=== PATIENT | female | born 1980 | race Caucasian/White ===

== ENCOUNTER 2017-08-09 00:50 | Emergency (ER) | payer OTHER ==
[~2017-08-09] VITALS: Ht 175.3 cm; Wt 64.9 kg
[~2017-08-09 00:50] MED LIST: ATENOLOL25 MG PO; CALCIUM500 M1 PO; CEPHALEXIN500 MG PO; CLONAZEPAM1 MG PO; CYCLOBENZAPRINE10 MG PO; CYMBALTA60 MG PO; FIORICET 50-301 EACH PO; HYDROCHLOROTHIA25 MG PO; HYDROCODON-ACE1 EAC8 PO; LIDOCAINE30 G TOP; MACROBID 100 M100 MG PO; METHOCARBAMOL750 MG PO; PERCOCET 5-3251 EACH PO; POTASSIUM 25 M25 MEQ PO; PROBIOTIC1 EAC1 PO; TRUVADA 200 MG1 EACH PO; TYLENOL325 MG PO; VITAMIN D5000 UNIT PO; ZOFRAN ODT4 MG PO
[2017-08-09] MEDS ORDERED: RISPERDAL0.25 MG PO (01:06)
[2017-08-09] MEDS ORDERED: TESSALON PERLE100 MG PO (01:29)
== END 2017-08-09 01:38 | disposition home or self-care (01) ==
LOC: ED 00:50
DX: J20.9 Acute bronchitis, unspecified (principal); F32.9 Major depressive disorder, single episode, unspecified; F17.200 Nicotine dependence, unspecified, uncomplicated; Z98.84 Bariatric surgery status; Z90.89 Acquired absence of other organs; Z90.49 Acquired absence of other specified parts of digestive tract; Z90.710 Acquired absence of both cervix and uterus; Z98.51 Tubal ligation status; Z88.8 Allergy status to other drugs, medicaments and biological substances; Z79.899 Other long term (current) drug therapy
CPT/HCPCS: 99283

== ENCOUNTER 2018-12-17 15:31 | Emergency (ER) | payer OTHER ==
[~2018-12-17] VITALS: Ht 175.3 cm; Wt 64.9 kg
[~2018-12-17 15:31] MED LIST changes: +RISPERDAL0.25 MG PO; +TESSALON PERLE100 MG PO
[2018-12-17] MEDS ORDERED: LOSARTAN POTASS50 MG PO (15:42)
== END 2018-12-17 15:45 | disposition home or self-care (01) ==
LOC: ED 15:31
DX: R10.2 Pelvic and perineal pain (principal)

== ENCOUNTER 2020-05-08 21:13 | Emergency (ER) | payer OTHER ==
[~2020-05-08] VITALS: Ht 180.3 cm; Wt 64.4 kg
--- OUTSIDE RECORDS SUMMARY | ~2020-05-08 | XMS | Encounter Summary ---
Demographics + + + | Address | [address] | | | [place] [address] | + + + | Home Phone | | + + + | Preferred Language | Unknown | + + + | Marital Status | | + + + | Uatsdin Affiliation | 1013 | + + + | Race | Unknown | + + + | Ethnic Group | Unknown | + + + Author + + + | Author | [facility] | | | and Luis Enriqueana | + + + | Organization | [facility] | | | and Luis Enriqueana | + + + | Address | Unknown | + + + | Phone | Unavailable | + + + Support + + +---------+ + | Name | Relationship | Address | Phone | + + +---------+ + | Tammy Weaver | ECON | Unknown | | + + +---------+ + Care Team Providers + +------+ + | Care Car Packer Name | Role | Phone | + +------+ + PCP | Unavailable | + +------+ + Encounter Details +--------+ + + + + | Date | Type | Department | Care Team | Description | +--------+ + + + + | 02/01/ | Emergency | [facility] | Win Leo MD | Cervical stenosis of | | 2011 - | | MEDICAL CENTER | [address] | spine; Neck pain | | | | EMERGENCY CENTER | [place] [address] | | | 02/02/ | | [address] | [phone] | | | 2011 | | [place], [place] | | | | | | [address] | | | | | | [phone] | | | +--------+ + + + + Social History + +-------+ +--------+------+ | Tobacco Use | Types | Packs/Day | Years | Date | | | | | Used | | + +-------+ +--------+------+ | Never Assessed | | | | | + +-------+ +--------+------+ + + + | Sex Assigned at | Date Recorded | | | | + + + | Not on file | | + + + documented as of this encounter ED Notes Conversion Transaction, Provider Unknown - 02/03/2012 1:57 AM PDTFormatting of this note m ight be different from the original. ED Notes by Emre Hooper RN at 02/03/12 0157 Author: Emre Hooper RN Service: (none) Author Type: Registered Nurse Filed: 02/03/12156 Date of Service: 02/03/12156 Status: Signed Caregivers Non Medical: Emre Hooper RN (Registered Nurse) All patient belongings collected by patient prior to discharge, pt has verified all belongi ngs in their custody at time of discharge. Patient has received and stated understanding of discharge instructions. Emre Hooper RN 02/03/12156 onver shivam Transaction, Provider Unknown - 02/03/2012 1:49 AM PDT ED Notes by Emre Hooper RN at 02/03/12148 Author: Emre Hooper RN Service: (none) Author Type: Registered Nurse Filed: 02/03/12149 Date of Service: 02/03/12148 Status: Signed Caregivers Non Medical: Emre Hooper RN (Registered Nurse) Pt sent home with Disc copy of MRI scan, ok per Dr Leo. Emre Hooper RN 02/03/12149 onver shivam Transaction, Provider Unknown - 02/03/2012 12:26 AM PDT ED Notes by Harry Jo RN at 02/03/1225 Author: Harry Jo RN Service: (none) Author Type: Registered Nurse Filed: 02/03/1225 Date of Service: 02/03/1225 Status: Signed Caregivers Non Medical: Harry Jo RN (Registered Nurse) Pt returned to room from MRI. Bed rails up x 2, bed in low position with brakes on, call l ight in reach. Harry Jo RN 02/03/1225 onver shivam Transaction, Provider Unknown - 02/03/2012 12:19 AM PDT ED Notes by Luis A Ellison RN at 02/03/12 0019 Author: Luis A Ellison RN Service: (none) Author Type: Registered Nurse Filed: 02/03/12 0019 Date of Service: 02/03/1218 Status: Signed Caregivers Non Medical: Luis A Ellison RN (Registered Nurse) Pt remains in MRI Luis A Ellison RN 02/03/1218 hWin mchugh MD - 02/02/2012 11:18 PM PDTFormatting of this note might be different from the or iginal. ED Provider Notes by Win Leo MD at 02/02/122317 Author: Win Leo MD Service: (none) Author Type: Physician Filed: 02/03/12 0150 Date of Service: 02/02/122317 Status: Signed Caregivers Non Medical: Win Leo MD (Physician) [facility] Department of Emergency Medicine History of Present Illness 11:18 PM Patient Identification Tina Ho is a 31 y.o. female. Patient information was obtained from patient. History/Exam limitations: none. Patient presented to the Emergency Department by: Ambulance Chief Complaint Chief Complaint Patient presents with Neck Injury transfer [facility], The patient complains of a neck injury. She was transferred here from [facility]. Pt sta yazmin she was at this movie theaters, turned her head and heard a "crack." She developed an in stnat headache and neck pain, and decreased movement with her right arm. She states she has chronic weakness in her UE, but reports worsening symptoms in her RUE. Weakness was caused f rom a fall in Dec 2011. At that time, she sustained a disk injury in her c-spine and is sche duled for surgery at [facility]. She denies any pain in her UEs. Onset of symptoms was tod ay, with a constant course since that time. The symptoms are described to be of moderate to severe severity. The patient also complains of headache that has been constant since injury occured. Care prior to arrival consisted of Dilaudid and Zofran at transferring hospital, with some relief. However, she is c/o returning pain. Past Medical History Diagnosis Date Hypertension Marfan syndrome Migraine Past Surgical History Procedure Date Hysterectomy Cholecystectomy Gastric bypass Prior to Admission medications Medication Sig Start Date End Date Taking? Authorizing Provider ascorbic acid (VITAMIN C) 250 MG tablet Take 250 mg by mouth daily. Yes Historical Prov iderMD atenolol (TENORMIN) 50 MG tablet Take 50 mg by mouth daily. Yes Historical Provider, wajeondusm-pedzutlmbwfgc-kjlyljdt (FIORICET WITH CODEINE) [id number] MG per capsule Take 1 capsule by mouth every 4 (four) hours as needed. Yes Historical Provider, diazepam (VALIUM) 5 MG tablet Take 5 mg by mouth every 6 (six) hours as needed. Yes His torical Provider, duloxetine (CYMBALTA) 60 MG capsule Take 60 mg by mouth daily. Yes Historical Provider, losartan (COZAAR) 50 MG tablet Take 50 mg by mouth daily. Yes Historical Provider, oxycodone-acetaminophen (LYNOX) 5-300 MG per tablet Take 1 tablet by mouth every 4 (four) h ours as needed. Yes Historical Provider, pregabalin (LYRICA) 150 MG capsule Take 150 mg by mouth 2 (two) times daily. Yes Histor ical Provider, Allergies Allergen Reactions Methergine Other (See Comments) Mobic Other (See Comments) History Social History Marital Status: Spouse Name: N/A Number of Children: N/A Years of Education: N/A Occupational History Not on file. Social History Main Topics Smoking status: Never Smoker Smokeless tobacco: Not on file Alcohol Use: No Drug Use: No Sexually Active: Other Topics Concern Not on file Social History Narrative No narrative on file History reviewed. No pertinent family history. Review of Systems Constitutional: Negative for: fever, chills, fatigue, sweats or weight loss Eyes: Negative for: decreased vision or irritated eyes Nose: Negative for: nosebleed Throat: Negative for: mouth sores Cardiovascular/Respiratory: Negative for: chest pain, shortness of breath, cough Gastrointestinal: Negative for: abdominal pain, vomiting, diarrhea, black or bloody stools Genitourinary: Negative for: dysuria, hematuria, urinary problems Musculoskeletal: Negative for: myalgias and arthralgias Skin: Negative for: laceration or lesion Neuro and psych: Negative for: fainting, head injury, seizure, trouble walking POSITIVE: headache, increased weakness in right>left arm Endocrine/Heme/Lymph: Negative for: swollen lymph nodes, easy bruising Physical Exam BP 161/94 | Pulse 78 | Temp(Src) 97.3 F (36.3 C) (Oral) | Resp 18 | Ht 1.753 m (5' 9") | Wt 72.576 kg (160 lb) | BMI 23.63 kg/m2 | SpO2 97% VS interpretation: hypertensive, otherwise normal Pulse Oximetry interpretation: Normal General: Alert, in no apparent distress Eyes: Normal inspection, pupils equal and round, non-icteric ENT: Ears normal Nose normal Pharynx normal Neck: Maintained in C-collar Cardiovascular: Rate and rhythm normal No murmurs Respiratory: Breath sounds normal bilaterally Abdomen: Soft, non-tender, non-distended No guarding or rebound Genitourinary: Deferred Rectal exam: Deferred Back: Normal inspection Skin: Color normal Warm and dry No rash Neuro: No motor deficit No sensory deficit Normal gait Extremitis: Left arm raised to level of shoulder, right arm raised 45 degress, otherwise st rength and sensation are normal Medical Decision Making and Emergency Department Course ED Department Course 11:18 PM Pt was transferred to [facility] ED from [facility] for concern for C-spine injury. P t states she turned her neck today and felt a "crack." She developed a headache instantly an d reports increased weakness in her RUE. She states she has chronic weakness in her UR bilat , but states a change in her weakness since incident occurred today. I have ordered an MRI a nd c-spine has been kept in a collar. Will give additional medication then reassess. Reviewed prior records. 12:49 AM MRI reviewed. Awaiting official read. 1:19 AM Case d/w Dr. Perez, neurosurgeon. Explained MRI results. States she will review images. 1:[address] Perez called back and has reviewed MRI. States there are no emergent findings and pt i s stable to be d/c. Discussion with Dr. Perez explained to pt and plan for d/c. C-spine cleared at this time. Pt states she was on steroid medication 1 month ago. Plan for d/c and f/u explained. Pt unde rstands and agrees with plan. All questions have been addressed. She is still c/o pain, ther efore will give medication prior to d/c. She states she normally takes Percocet q8h, and sta yazmin she still has trouble with maintaining her pain. I explained that she can increase her d ose to q6h. Records Reviewed Old medical records. Nursing notes. Previous radiology studies. Laboratory Evaluation Results None Radiology and EKG Evaluation Imaging Results MRI C-Spine without contrast (Preliminary result) Result time:02/03/12 005 Preliminary result by Rad Results In Frank[place] (02/03/12 ) Narrative: Cervical spine MR preliminary impression: There is a focus of increased cord signal at the C4 level. This is nonspecific. Primary differential considerations include sequela from eliseo or cord contusion (given history of remote trauma) or transverse myelitis. No clear evidence of discrete spinal cord mass. There is moderate multilevel spinal stenosis, most pronounced at the C3-C4 level, where there is likely mild impingement on the spinal cord. No abnormal STIR signal to indicate presence of acute bony or paraspinous injury. Read by Edison Garrett MD on Feb 03 2012 12:51AM ED Diagnoses Final diagnoses Cervical stenosis of spine Neck pain Disposition: ED Disposition Discharge Condition at discharge: Stable Follow-up Information Follow up With Details Comments Contact Info DREW Eastman Make an appointment [address] [place] [phone] [facility] EMERGENCY DEPARTMENT If symptoms worsen [address] [place] [id number] Discharge Medications: New Prescriptions OXYCODONE-ACETAMINOPHEN ([facility] DISPENSED MEDICATION ONLY) 5-325 MG PRE-CARRIE Take 1-2 ta blets by mouth every 4 (four) hours as needed for Pain. Send prescription to [facility] --DO NOT SEND WITH PATIENT Additional Documentation Procedures Attending Note: Documentation assistance provided by Francine Delcid (Scribe). Information recorded by the scribe has been reviewed and validated by me. I oneida hastings with its contents. MD Win Padron MD 02/03/12 0150 onversion Transactio n, Provider Unknown - 02/02/2012 11:11 PM PDT ED Notes by Luis A Ellison RN at 02/02/12 0778 Author: Luis A Ellison RN Service: (none) Author Type: Registered Nurse Filed: 02/02/122312 Date of Service: 02/02/122310 Status: Signed Caregivers Non Medical: Luis A Ellison RN (Registered Nurse) Pt states she fell about a month ago injuring her neck, pt states she turned her neck earli er today and felt a pop, after that she had increasing limited ROM in her arms. Luis A Ellison RN 02/02/122312 onver shivam Transaction, Provider Unknown - 02/02/2012 11:10 PM PDT ED Notes by Luis A Ellison RN at 02/02/122309 Author: Luis A Ellison RN Service: (none) Author Type: Registered Nurse Filed: 02/02/122309 Date of Service: 02/02/122309 Status: Signed Caregivers Non Medical: Luis A Ellison RN (Registered Nurse) Bed:07
Expected date:
Expected time:
Means of arrival:
Comments:
[facility] Transfer. onver shivam Transaction, Provider Unknown - 02/02/2012 9:59 PM PDT ED Notes by Emre Hooper RN at 02/02/122158 Author: Emre Hooper RN Service: (none) Author Type: Registered Nurse Filed: 02/03/12 0036 Date of Service: 02/02/122158 Status: Addendum Caregivers Non Medical: Emre Hooper RN (Registered Nurse) Related Notes: Original Note by Emre Hooper RN (Registered Nurse) filed at 02/02/122306 Report received from FILI Dickerson. Pt transferred from [facility] ED in [place]. Pt is in C-Collar for C2-C5 compression. Pt reports she sustained in fall on 01/05/12. Pt was seen and treated at [facility] ED for that ini tial injury. Today pt reports she was sitting on couch and "felt a pop" when she turned her head since then pt has had "burning pain" in lower extremities and has experienced numbness, tingling, and decreased range of motion in upper extremities bilaterally. CT scan reveals c ord comression, narrowed canal, disc bulging in disc c2-c3. Pt is followed by the NH and is scheduled for neck surgery. Emre Hooper RN 02/03/12 0036 docume nted in this encounter Plan of Treatment Not on filedocumented as of this encounter Procedures + +--------+ + + + | Procedure Name | Priori | Date/Time | Associated Diagnosis | Comments | | | ty | | | | + +--------+ + + + | MRI CERVICAL SPINE | Routin | 02/03/2012 | | Results for this | | WO CONTRAST | e | 12:16 AM | | procedure are in the | | | | PDT | | results section. | + +--------+ + + + documented in this encounter Results MRI Cervical Spine wo Contrast (02/03/2012 12:16 AM PDT) + + | Specimen | + + | | + + + + + | Narrative | Performed At | + + + | MRI CERVICAL SPINE WITHOUT CONTRAST HISTORY: 31-year-old woman | | | with arm pain and weakness. COMPARISON: None available. | | | TECHNIQUE: Sagittal and axial T1 and T2-weighted sequences were | | | obtained through the cervical spine without the administration of | | | intravenous contrast. Coverage from clivus to T6. FINDINGS: | | | Alignment of the cervical spine is normal. Vertebral body heights are | | | maintained. There is disk height loss and disk desiccation throughout | | | nearly all the cervical spine disk levels from C2 through T1. At | | | C2-C3, mild facet arthropathy without significant canal or foraminal | | | narrowing. At C3-C4, posterior disk osteophyte complex protrusion | | | causing compression of the cord and effacement of the CSF space. AP | | | canal diameter measures 6.9 mm. There is flattening of the cord. Below | | | this level, there is focal T2 hyperintensity cord signal | | | abnormality in the right lateral aspect of the cord measuring 3 mm x 3 | | | mm x 3 mm. There is mild to moderate impingement of the cord at this | | | level. At C4-C5, there is central focal disk protrusion with | | | ventral indentation of the cord. AP canal diameter measures 7.1 mm | | | with near effacement of the CSF space around the cord. There is mild | | | impingement of the cord at this level. No cord signal abnormality | | | demonstrated at this level. At C5-C6, posterior disk osteophyte | | | complex with ventral indentation of the left lateral cord. AP canal | | | diameter measures 7. 9 mm with mild bilateral foraminal narrowing. No | | | cord signal abnormality. At C6-C7, posterior disk osteophyte | | | complex. AP canal diameter measures 8.6 mm. There is minimal bilateral | | | foraminal narrowing. At C7-T1, mild posterior bulge with a left | | | paracentral annular fissure. AP canal diameter measures 8.9 mm without | | | significant foraminal narrowing. IMPRESSION: 1. Moderate to | | | severe canal narrowing at C3-C4 and C4-C5 secondary to posterior disk | | | osteophyte complex at C3-C4 and focal central disk osteophyte complex | | | protrusion at C4-C5. There is apparent mild to moderate cord | | | impingement at C3-C4 and mild cord impingement at C4-C5. 2. T2 | | | hyperintense cord signal abnormality in the right lateral cord | | | posterior to C4, between above mentioned areas of high degree stenosis | | | most likely represents compression myelopathy or cord contusion from | | | prior trauma with tiny focal local syrinx. There is no evidence for | | | expansion of the cord to suggest intrinsic neoplasm. There is no | | | evidence for elongated syringohydromyelia. Sequela of demyelinating | | | process is thought to be less likely. Eccentric location of | | | abnormality makes cord infarct also less likely although cannot be | | | completely excluded. Electronically signed by Dean Wheeler MD | | | on Feb 06 2012 11:35PM | | + + + + + | Procedure Note | + + | Franko, Rad Conversion - 07/04/2019 2:38 AM PDT MRI CERVICAL SPINE WITHOUT CONTRAST | | HISTORY: 31-year-old woman with arm pain and weakness. COMPARISON: None available. | | TECHNIQUE: Sagittal and axial T1 and T2-weighted sequences were obtained through the | | cervical spine without the administration of intravenous contrast. Coverage from clivus | | to T6. FINDINGS: Alignment of the cervical spine is normal. Vertebral body heights are | | maintained. There is disk height loss and disk desiccation throughout nearly all the | | cervical spine disk levels from C2 through T1. At C2-C3, mild facet arthropathy without | | significant canal or foraminal narrowing. At C3-C4, posterior disk osteophyte complex | | protrusion causing compression of the cord and effacement of the CSF space. AP canal | | diameter measures 6.9 mm. There is flattening of the cord. Below this level, there is | | focal T2 hyperintensity cord signal abnormality in the right lateral aspect of the cord | | measuring 3 mm x 3 mm x 3 mm. There is mild to moderate impingement of the cord at this | | level. At C4-C5, there is central focal disk protrusion with ventral indentation of the | | cord. AP canal diameter measures 7.1 mm with near effacement of the CSF space around the | | cord. There is mild impingement of the cord at this level. No cord signal abnormality | | demonstrated at this level. At C5-C6, posterior disk osteophyte complex with ventral | | indentation of the left lateral cord. AP canal diameter measures 7. 9 mm with mild | | bilateral foraminal narrowing. No cord signal abnormality. At C6-C7, posterior disk | | osteophyte complex. AP canal diameter measures 8.6 mm. There is minimal bilateral | | foraminal narrowing. At C7-T1, mild posterior bulge with a left paracentral annular | | fissure. AP canal diameter measures 8.9 mm without significant foraminal narrowing. | | IMPRESSION:1. Moderate to severe canal narrowing at C3-C4 and C4-C5 secondary to | | posterior disk osteophyte complex at C3-C4 and focal central disk osteophyte complex | | protrusion at C4-C5. There is apparent mild to moderate cord impingement at C3-C4 and | | mild cord impingement at C4-C5.2. T2 hyperintense cord signal abnormality in the right | | lateral cord posterior to C4, between above mentioned areas of high degree stenosis most | | likely represents compression myelopathy or cord contusion from prior trauma with tiny | | focal local syrinx. There is no evidence for expansion of the cord to suggest intrinsic | | neoplasm. There is no evidence for elongated syringohydromyelia. Sequela of | | demyelinating process is thought to be less likely. Eccentric location of abnormality | | makes cord infarct also less likely although cannot be completely excluded. | | Electronically signed by Dean Wheeler MD on Feb 06 2012 11:35PM | | Electronically signed by Dean Wheeler MD on Feb 06 2012 11:35PM | + + documented in this encounter Visit Diagnoses + + | Diagnosis | + + | Cervical stenosis of spine Spinal stenosis in cervical region | + + | Neck pain Cervicalgia | + + documented in this encounter
--- OUTSIDE RECORDS SUMMARY | ~2020-05-08 | XMS | Encounter Summary ---
Demographics + + + | Address | [address] | | | [place] [address] | + + + | Home Phone | | + + + | Preferred Language | Unknown | + + + | Marital Status | | + + + | Samaritan Affiliation | 1013 | + + + | Race | Unknown | + + + | Ethnic Group | Unknown | + + + Author + + + | Author | [facility] | | | and Luis Enriqueana | + + + | Organization | [facility] | | | and Luis Enriqueana [...] Team Providers + +------+ + | Care Distribution Supervisor Name | Role | Phone | + +------+ + | Erich Freire MD | PCP | | + +------+ + Encounter Details +--------+ + + + + | Date | Type | Department | Care Team | Description | +--------+ + + + + | 02/26/ | Abstract | [facility] | Jay Petersen, | | | 2016 | | REHABILITATION | [address] | | | | | MEDICINE [address], | | | | | [address] | [place] [address] | | | | | [place] [address] | [phone] | | | | | [phone] | | | +--------+ + + + + Social History + +-------+ +--------+------+ | Tobacco Use | Types | Packs/Day | Years | Date | | | | | Used | | + +-------+ +--------+------+ | Current Every Day | | 0.5 | | | | Smoker | | | | | + +-------+ +--------+------+ + + | Comments: Pt states she is trying to quit and is down to 8 cigarettes a day | + + + + +---------+ + | Alcohol Use | Drinks/Week | oz/Week | Comments | + + +---------+ + | Yes | 2 Shots of liquor | 2.0 | | + + +---------+ + + + + | Sex Assigned at | Date Recorded | | | | + + + | Not on file | | + + + documented as of this encounter Plan of Treatment Not on filedocumented as of this encounter Visit Diagnoses Not on filedocumented in this encounter"
--- OUTSIDE RECORDS SUMMARY | ~2020-05-08 | XMS | Encounter Summary ---
Demographics + + + | Address | [address] | | | [place] [address] | + + + | Home Phone | | + + + | Preferred Language | Unknown | + + + | Marital Status | | + + + | Sabianist Affiliation | 1013 | + + + | Race | Unknown | + + + | Ethnic Group | Unknown | + + + Author + + + | Author | [facility] | | | and Luis Enriqueana | + + + | Organization | [facility] | | | and Luis Enriqueana [...] Team Providers + +------+ + | Care Centrifugal Chiller Technician Name | Role | Phone | + +------+ + | Erich Freire MD | PCP | | + +------+ + Encounter Details +--------+ + + + + | Date | Type | Department | Care Team | Description | +--------+ + + + + | 02/01/ | Orders Only | [place] [facility] | Conversion | | | 2011 | | CONVERSION | Transaction, | | | | | INTERFACES [address] | Provider Unknown | | | | | [address] [facility] [place] | | | | | | [address] | (Fax) | | | | | [phone] | | | +--------+ + + + [...] | + +--------+ + + + | CT CERVICAL SPINE WO | Routin | 02/02/2012 | | Results for this | | CONTRAST | e | 12:05 PM | | procedure are in the | | | | PDT | | results section. | + +--------+ + + + documented in this encounter Results CT Cervical Spine wo Contrast (02/02/2012 12:05 PM PDT) + + | Specimen | + + | | + + + + + | Narrative | Performed At | + + + | This is a non-reportable procedure without a radiologist report and | | | is used for image storage only | | + + + + + | Procedure Note | + + | Uche Abdul - 07/04/2019 2:38 AM PDT This is a non-reportable procedure | | without a radiologist report and isused for image storage only | + + documented in this encounter Visit Diagnoses Not on filedocumented in this encounter"
--- OUTSIDE RECORDS SUMMARY | ~2020-05-08 | XMS | Encounter Summary ---
Demographics + + + | Address | [address] | | | [place] [address] | + + + | Home Phone | | + + + | Preferred Language | Unknown | + + + | Marital Status | | + + + | Buddhist Affiliation | 1013 | + + + | Race | Unknown | + + + | Ethnic Group | Unknown | + + + Author + + + | Author | [facility] | | | and Luis Enriqueana | + + + | Organization | [facility] | | | and [...] Team Providers + +------+ + | Care Patrol Deputy Sheriff Name | Role | Phone | + +------+ + | Erich Freire MD | PCP | | + +------+ + Reason for Visit Auth/Cert +--------+--------+ + + + + | Status | Reason | Specialty | Diagnoses / | Referred By | Referred To | | | | | Procedures | Contact | Contact | +--------+--------+ + + + + | | | | | | | +--------+--------+ + + + + Encounter Details +--------+ + + + + | Date | Type | Department | Care Team | Description | +--------+ + + + + | 01/03/ | Hospital | [facility] | Erich Freire | Iron deficiency | | 2017 | Encounter | MED CTR OP INFUSION | MD Jose Angel 76 | anemia, unspecified | | | | [address] | [place] | iron deficiency | | | | [place] | [place] [address] | anemia type (Primary | | | | [address] | [phone] | Dx) | | | | [phone] | | | +--------+ + + + + Social History + +-------+ +--------+------+ | Tobacco Use | Types | Packs/Day | Years | Date | | | | | Used | | + +-------+ +--------+------+ | Current Every Day | | 0.5 | | | | Smoker | | | | | + +-------+ +--------+------+ + + | Tobacco Cessation: Ready to Quit: Yes; Counseling Given: No | | Comments: Pt states she is trying [...] + + documented as of this encounter Last Filed Vital Signs + + + + + | Vital Sign | Reading | Time Taken | Comments | + + + + + | Blood Pressure | 103/59 | 01/03/2017 12:00 PM | | | | | PST | | + + + + + | Pulse | 72 | 01/03/2017 12:00 PM | | | | | PST | | + + + + + | Temperature | 37 C (98.6 F) | 01/03/2017 12:00 PM | | | | | PST | | + + + + + | Respiratory Rate | 18 | 01/03/2017 12:00 PM | | | | | PST | | + + + + + | Oxygen Saturation | 98% | 01/03/2017 12:00 PM | | | | | PST | | + + + + + | Inhaled Oxygen | - | - | | | Concentration | | | | + + + + + | Weight | - | - | | + + + + + | Height | - | - | | + + + + + | Body Mass Index | - | - | | + + + + + documented in this encounter Medications at Time of Discharge + + + +---------+ + + | Medication | Sig | Dispensed | Refills | Start | End Date | | | | | | Date | | + + + +---------+ + + | atenolol | Take 50 mg by mouth | | 0 | | | | (TENORMIN) 50 mg | Daily. | | | | | | tablet | | | | | | + + + +---------+ + + | DULoxetine | Take 60 mg by mouth | | 0 | | | | (CYMBALTA) [address] | Daily. | | | | | | capsule | | | | | | + + + +---------+ + + | | Take 1 tablet by | | 0 | | | | emtricitabine-tenofo | mouth Daily. | | | | | | vir DF (TRUVADA) | | | | | | | 200-300 mg per | | | | | | | tablet | | | | | | + + + +---------+ + + | | Take 1 tablet by | | 0 | | | | HYDROcodone-acetamin | mouth every 6 hours | | | | | | ophen (NORCO) 10-325 | as needed for Pain. | | | | | | mg per tablet | | | | | | + + + +---------+ + + | prazosin | Take 1 capsule by | | 0 | 07/26/20 | | | (MINIPRESS) 1 mg | mouth 3 times daily | | | 16 | 7 | | capsule | as needed. | | | | | + + + +---------+ + + documented as of this encounter Miscellaneous Notes Addendum Note - Sara Casas RN - 01/03/2017 5:17 PM PSTEncounter addended by: Sara dorman RN on: 01/03/2017 17:17
Documentation filed: Lines/Drains/Airways Properties Ed itor documented in this encounter Plan of Treatment Not on filedocumented as of this encounter Visit Diagnoses + + | Diagnosis | + + | Iron deficiency anemia, unspecified iron deficiency anemia type - Primary | + + documented in this encounter Administered Medications + +---------+ +--------+-------+------+ | Medication Order | MAR | Action | Dose | Rate | Site | | | Action | Date | | | | + +---------+ +--------+-------+------+ | iron sucrose (VENOFER) 200 mg | New Bag | 01/03/20 | 200 mg | 110 | | | in sodium chloride 0.9% 100 mL | | 17 11:54 | | mL/hr | | | IVPB 200 mg, Intravenous, | | AM PST | | | | | Administer over 60 Minutes, ONCE, | | | | | | | Lyric 01/03/17 at 1135, For 1 dose | | | | | | + +---------+ +--------+-------+------+ +---+---+ | | | +---+---+ documented in this encounter"
--- OUTSIDE RECORDS SUMMARY | ~2020-05-08 | XMS | Encounter Summary ---
Demographics + + + | Address | [address] | | | [place] [address] | + + + | Home Phone | | + + + | Preferred Language | Unknown | + + + | Marital Status | | + + + | Bahai Affiliation | 1013 | + + + | Race | Unknown | + + + | Ethnic Group | Unknown | + + + Author + + + | Author | [facility] | | | and Luis Enriqueana | + + + | Organization | [facility] | | | and Luis [...] Team Providers + +------+ + | Care Diamond Sizer And Sorter Name | Role | Phone | + +------+ + PCP | Unavailable | + +------+ + Encounter Details +--------+ + + + + | Date | Type | Department | Care Team | Description | +--------+ + + + + | 01/27/ | Hospital | [facility] | | | | 2011 | Encounter | MED CTR XRAY [address] | | | | | | [address] | | | | | | [place] [id number] | | | | | | [phone] | | | +--------+ + + + [...] + | CT CERVICAL SPINE WO | | 01/28/2012 | | Results for this | | CONTRAST | | 10:14 AM | | procedure are in the | | | | PDT | | results section. | + +--------+ + + + documented in this encounter Results CT Cervical Spine wo Contrast (01/28/2012 10:14 AM PDT) + + | Specimen | + + | | + + + + + | Narrative | Performed At | + + + | [facility] Diagnostic Imaging Department | [place] | | [address] [facility] | [facility] | | UNENHANCED CT CERVICAL SPINE: | DIAG IMG | | 01/28/2012 CLINICAL HISTORY: SPINAL CORD IMPINGEMENT, | | | PREOPERATIVE EVALUATION. COMPARISON: Cervical MRI 01/08/2012 | | | TECHNIQUE: Axial unenhanced images are performed through the | | | cervical spine, along with coronal and sagittal reformations. | | | FINDINGS: There is straightening and minimal reversal of the | | | cervical lordosis. Cervical vertebral height and alignment are | | | otherwise maintained, without evident fracture or subluxation. | | | Incomplete f usion of the posterior arch of C1 is noted. 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 No significant bony ne ural foraminal stenosis is | | | appreciated. There is minimal biapical pleural thickening. | | | Imaged brain and soft tissue structures have an unrema rkable | | | unenhanced appearance. IMPRESSION: MINIMAL REVERSAL OF THE | | | CERVICAL LORDOSIS WITH MULTILEVEL CENTRAL CANAL STENOSIS, GREATE ST | | | AT C3-4, CORRESPONDING WITH THAT DESCRIBED ON PREVIOUS MRI OF | | | 01/08/2012. Dictated Date/Time: 01/28/2012 13:05 Transcribed | | | Date/Time: 01/28/2012 13:12 Bristle Machine Operator: | | | <Electronically Signed by Khoi Finley MD> 01/28/12 1522 | | + + + + + | Procedure Note | + + | Franko, Rad Conversion - 12/18/2013 4:57 PM [facility] | | Diagnostic Imaging Department [address] [place] [address] | | UNENHANCED CT CERVICAL SPINE: 01/28/2012 CLINICAL | | HISTORY: SPINAL CORD IMPINGEMENT, PREOPERATIVE EVALUATION. COMPARISON: Cervical MRI | | 01/08/2012 TECHNIQUE: Axial unenhanced images are performed through the cervical spine, | | along with coronal and sagittal reformations. FINDINGS: There is straightening and | | minimal reversal of the cervical lordosis. Cervical vertebral height and alignment are | | otherwise maintained, without evident fracture or subluxation. Incomplete fusion of the | | posterior arch of C1 is noted. 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 No significant bony neural | | foraminal stenosis is appreciated. There is minimal biapical pleural thickening. Imaged | | brain and soft tissue structures have an unremarkable unenhanced appearance. | | IMPRESSION: MINIMAL REVERSAL OF THE CERVICAL LORDOSIS WITH MULTILEVEL CENTRAL CANAL | | STENOSIS, GREATEST AT C3-4, CORRESPONDING WITH THAT DESCRIBED ON PREVIOUS MRI OF | | 01/08/2012. 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 No significa nt bony ne | |ural foraminal stenosis is appreciated. | | | |There is minimal biapical pleural thickening. Imaged brain and soft tissue structures have an unrema | |rkable unenhanced appearance. | | | |IMPRESSION: MINIMAL REVERSAL OF THE CERVICAL LORDOSIS WITH MULTILEVEL CENTRAL CANAL STENOS IS, GREATE | |ST AT C3-4, CORRESPONDING WITH THAT DESCRIBED ON PREVIOUS MRI OF 01/08/2012. | | | |Dictated Date/Time: 01/28/2012 13:05 | |Transcribed Date/Time: 01/28/2012 13:12 | |Bristle Machine Operator: | |<Electronically Signed by Khoi Finley MD> 01/28/12 1522 | + + + +---------+ + + | Performing | Address | City/State/Zipcode | Phone Number | | Organization | | | | + +---------+ + + | [place] | | | | | [place] | | | | + +---------+ + + documented in this encounter Visit Diagnoses Not on filedocumented in this encounter"
--- OUTSIDE RECORDS SUMMARY | ~2020-05-08 | XMS | Clinical Summary ---
Demographics + + + | Address | [address] | | | [place] [address] | + + + | Home Phone | | + + + | Preferred Language | Unknown | + + + | Marital Status | Single | + + + | Yarsani Affiliation | Unknown | + + + | Race | Unknown | + + + | Ethnic Group | Other Race | + + + Author + + + | Author | [facility] | + + + | Organization | [facility] | + + + | Address | Unknown | + + + | Phone | Unavailable | + + + Care Team Providers + +------+ + | Care Jack Spooler Tender Name | Role | Phone | + +------+ + PCP | Unavailable | + +------+ + Source Comments MARYA is fully live on both EpicCare Ambulatory and EpicCare InPatient.[facility] Allergies + + + + + + | Active Allergy | Reactions | Severity | Noted | Comments | | | | | Date | | + + + + + + | Methylergonovine | | | 01/24/20 | | | | | | 13 | | + + + + + + | Meloxicam | | | 01/24/20 | | | | | | 13 | | + + + + + + Medications + + + +---------+------+------+-------+ | Medication | Sig | Dispensed | Refills | Star | End | Statu | | | | | | t | Date | s | | | | | | Date | | | + + + +---------+------+------+-------+ | ibuprofen 600 mg | Take 600 mg by mouth | | 0 | | | Activ | | Oral | every six hours as | | | | | e | | tabletIndications: | needed. | | | | | | | pain | Indications: Pain | | | | | | + + + +---------+------+------+-------+ | ergocalciferol | Take 50,000 Units by | | 0 | | | Activ | | 50,000 unit Oral | mouth every seven | | | | | e | | capsule | days. | | | | | | + + + +---------+------+------+-------+ | cholecalciferol, | Take 1,000 Units by | | 0 | | | Activ | | Vitamin D3, 1,000 | mouth once daily. | | | | | e | | unit Oral tablet | | | | | | | + + + +---------+------+------+-------+ | hydrOXYzine | Take 25 mg by mouth | | 0 | | | Activ | | pamoate 25 mg Oral | three times daily as | | | | | e | | capsuleIndications: | needed. | | | | | | | anxiety | Indications: ANXIETY | | | | | | + + + +---------+------+------+-------+ | pregabalin 50 mg | Take 150 mg by mouth | | 0 | | | Activ | | Oral capsule | two times daily. | | | | | e | | | Max: 600 mg/dayTake | | | | | | | | 150 mg at noon and | | | | | | | | in the evening | | | | | | + + + +---------+------+------+-------+ | pregabalin 50 mg | Take 200 mg by mouth | | 0 | | | Activ | | Oral capsule | once daily. Max: | | | | | e | | | 600 mg/dayIn the | | | | | | | | morning | | | | | | + + + +---------+------+------+-------+ | | Take 1 Tab by mouth | | 0 | | | Activ | | HYDROcodone-acetamin | every eight hours as | | | | | e | | ophen 5-500 mg Oral | needed. Not to | | | | | | | tabletIndications: | exceed 6 tablets per | | | | | | | pain | any 24 hour period. | | | | | | | | (Not to exceed 3250 | | | | | | | | mg of acetaminophen | | | | | | | | from all products | | | | | | | | per 24 hour period.) | | | | | | | | Indications: Pain | | | | | | + + + +---------+------+------+-------+ | LORazepam 0.5 mg | Take 0.5 mg by mouth | | 0 | | | Activ | | Oral | every eight hours | | | | | e | | tabletIndications: | as needed. | | | | | | | anxiety | Indications: ANXIETY | | | | | | + + + +---------+------+------+-------+ | SUMAtriptan 6 | Inject 6 mg under | | 0 | | | Activ | | mg/0.5 mL | the skin (SUBC) as | | | | | e | | Subcutaneous | needed. A second | | | | | | | Solution | injection may be | | | | | | | | administered at | | | | | | | | least 1 hour after | | | | | | | | the initial dose, | | | | | | | | but not more than 2 | | | | | | | | injections in a 24 | | | | | | | | hour period. | | | | | | + + + +---------+------+------+-------+ | ferrous sulfate | Take 325 mg by mouth | | 0 | | | Activ | | 325 mg (65 mg iron) | two times daily. | | | | | e | | Oral tablet | | | | | | | + + + +---------+------+------+-------+ | lidocaine 5 % | Apply to affected | | 0 | | | Activ | | Topical Cream | area four times | | | | | e | | | daily as needed. | | | | | | | | Apply to affected | | | | | | | | area. | | | | | | + + + +---------+------+------+-------+ | traZODone 50 mg | Take 50 mg by mouth | | 0 | | | Activ | | Oral tablet | once daily at | | | | | e | | | bedtime as needed. | | | | | | + + + +---------+------+------+-------+ | atenolol 50 mg | Take 50 mg by mouth | | 0 | | | Activ | | Oral tablet | two times daily. | | | | | e | + + + +---------+------+------+-------+ | | Take 12.5 mg by | | 0 | | | Activ | | hydrochlorothiazide | mouth once daily. | | | | | e | | 25 mg Oral tablet | | | | | | | + + + +---------+------+------+-------+ | DULoxetine 60 mg | Take 120 mg by mouth | | 0 | | | Activ | | Oral capsule,delayed | once daily. | | | | | e | | release(DR/EC) | | | | | | | + + + +---------+------+------+-------+ | oxyCODONE, | Take 1-3 Tabs by | 40 Tab | 0 | 03/1 | | Activ | | immediate release, 5 | mouth every three | | | 5/20 | | e | | mg Oral tablet | hours as needed for | | | 13 | | | | | severe pain. | | | | | | + + + +---------+------+------+-------+ | senna-docusate | Take 1 Tab by mouth | 20 Tab | 0 | 03/1 | | Activ | | 8.6-50 mg Oral | two times daily. | | | 5/20 | | e | | tablet | | | | 13 | | | + + + +---------+------+------+-------+ | diazepam 2 mg Oral | Take 1 Tab by mouth | 30 Tab | 0 | 01/09 | | Activ | | tabletIndications: | four times daily as | | | 04/30 | | e | | muscle spasm | needed. Indications: | | | 13 | | | | | MUSCLE SPASM | | | | | | + + + +---------+------+------+-------+ Active Problems + + + | Problem | Noted Date | + + + | Cervical spine fracture | 01/23/2013 | + + + + + | Overview: Evaluated by [facility], no myelopathy and no need | | for cervical collar. Cervical spine cleared by them. CT | | c-spine done at [facility] and MRI c-spine here. There is a high | | likelihood that this is not a new fracture and was demonstrated | | on previous imaging. "Apparently corticated right laminar | | defects on the outside CT associated with little if any T2 | | hyperintensity in the paraspinal soft tissues on this MR." per | | Radiology read. | + + + + + | Acute pain | 01/23/2013 | + + + + + | Overview: Her pain was well controlled on oral agents at the | | time of discharge. | + + Social History + +-------+ +--------+------+ | Tobacco Use | Types | Packs/Day | Years | Date | | | | | Used | | + +-------+ +--------+------+ | Current Every Day | | | | | | Smoker | | | | | + +-------+ +--------+------+ + + +---------+ + | Alcohol Use | Drinks/Week | oz/Week | Comments | + + +---------+ + | No | | | | + + +---------+ + + + + | Sex Assigned at | Date Recorded | | | | + + + | Not on file | | + + + + + + + | Job Start Date | Occupation | Industry | + + + + | Not on file | Not on file | Not on file | + + + + + + + + | Travel History | Travel Start | Travel End | + + + + + + | No recent travel history available. | + + Last Filed Vital Signs + + + + + | Vital Sign | Reading | Time Taken | Comments | + + + + + | Blood Pressure | 112/67 | 01/24/2013 8:19 AM | | | | | PDT | | + + + + + | Pulse | 74 | 01/24/2013 8:19 AM | | | | | PDT | | + + + + + | Temperature | 36.9 C (98.4 F) | 01/24/2013 8:19 AM | | | | | PDT | | + + + + + | Respiratory Rate | 16 | 01/24/2013 8:19 AM | | | | | PDT | | + + + + + | Oxygen Saturation | 100% | 01/24/2013 8:19 AM | | | | | PDT | | + + + + + | Inhaled Oxygen | - | - | | | Concentration | | | | + + + + + | Weight | 83.9 kg (185 lb) | 01/23/2013 1:00 PM | | | | | PDT | | + + + + + | Height | 175.3 cm (5' 9") | 01/23/2013 1:00 PM | | | | | PDT | | + + + + + | Body Mass Index | 27.32 | 01/23/2013 1:00 PM | | | | | PDT | | + + + + + Plan of Treatment Not on file Results Not on filefrom Last 3 Months Insurance + +--------+ +--------+ + +--------+ | Payer | Benefi | Subscriber | Effect | Phone | Address | Type | | | t Plan | ID | carolyn | | | | | | / | | Dates | | | | | | Group | | | | | | + +--------+ +--------+ + +--------+ | [employer] | [employer] | xxxxxxxxx | Effect | [phone] | [address] | Agency | | ADMINISTRATION | [place] | | carolyn | [phone] | | | | ADMINI | | for | | [place], | | | | [place] | | all | | [place] [address] | | | | ON | | dates | | | | + +--------+ +--------+ + +--------+ + +--------+ +--------+ + + | Guarantor Name | Accoun | Relation to | Date | Phone | Billing Address | | | t Type | Patient | of | | | | | | | | | | + +--------+ +--------+ + + | Tina Ho | Person | Self [birth year] | [address] | | | al/Fam | | 1980 | [phone] | [place] | | | shay | | | [address] (Home) | [phone] | + +--------+ +--------+ + + | Tina Ho | [place] | Self | [birth year] | [address] [place] | | | Kaeo | | 1980 | [phone] | [place], [place] | | | red | | | 6 (Home) | [phone] | + +--------+ +--------+ + + Advance Directives + + + + + | Code Status | Date | Date | Comments | | | Activated | Inactivated | | + + + + + | Full Code | 01/23/2013 | 01/24/2013 | | | | 12:31 PM | 3:50 PM | | + + + + +
--- OUTSIDE RECORDS SUMMARY | ~2020-05-08 | XMS | Encounter Summary ---
Demographics + + + | Address | [address] | | | [place] [address] | + + + | Home Phone | | + + + | Preferred Language | Unknown | + + + | Marital Status | | + + + | Congregation Affiliation | 1013 | + + + | Race | Unknown | + + + | Ethnic Group | Unknown | + + + Author + + + | Author | [facility] | | | and Luis Enriqueana | + + + | Organization | [facility] | | | and Luis Enriqueana | + + + | Address | Unknown | + + + | Phone | Unavailable | + + + Support + + +---------+ + | Name | Relationship | Address | Phone | + + +---------+ + | Micheal Weaver | ECON | Unknown | | + + +---------+ + Care Team Providers + +------+ + | Care Regulatory Analyst Name | Role | Phone | + +------+ + | Erich Freire MD | PCP | | + +------+ + Reason for Referral Diagnostic/Screening (Routine) +--------+--------+ + + + + | Status | Reason | Specialty | Diagnoses / | Referred By | Referred To | | | | | Procedures | Contact | Contact | +--------+--------+ + + + + | Closed | | Radiology | Diagnoses | Tani | [facility] | | | | | Nell | Erich | [address] | | | | | syndrome | MD Daphnie | Samantha Singh, | | | | | with | 76 | [place] | | | | | skeletal | [place] | [id number] | | | | | manifestatio | [address] | Phone: | | | | | n | [place] | [phone] | | | | | Procedures | [id number] | Fax: | | | | | ECHO | Phone: | [phone] | | | | | Complete | [phone] | | | | | | | Fax: | | | | | | | [phone] | | +--------+--------+ + + + + Reason for Visit Diagnostic/Screening (Routine) +--------+--------+ + + + + | Status | Reason | Specialty | Diagnoses / | Referred By | Referred To | | | | | Procedures | Contact | Contact | +--------+--------+ + + + + | Closed | | Radiology | Diagnoses | Walker, | [facility] | | | | | Marfan's | Erich | [address] | | | | | syndrome | MD Daphnie | Samantha Singh, | | | | | with | 76 | [place] | | | | | skeletal | [place] | [id number] | | | | | manifestatio | DR SINGH | Phone: | | | | | n | [place] | [phone] | | | | | Procedures | [id number] | Fax: | | | | | ECHO | Phone: | [phone] | | | | | Complete | [phone] | | | | | | | Fax: | | | | | | | [phone] | | +--------+--------+ + + + + Encounter Details +--------+ + + + + | Date | Type | Department | Care Team | Description | +--------+ + + + + | 08/19/ | Hospital | [facility] | Erich Freire | Marfan's syndrome | | 2017 | Encounter | [facility] [address] | MD Daphnie 76 | with skeletal | | | | [place] | [place] | manifestation | | | | [place] [id number] | [place] [id number] | | | | | [phone] | [phone] | | | | | | | | | | | | Saman Wallace, | | | | | | Technologist | | +--------+ + + + + [...] + + documented as of this encounter Medications at Time of Discharge + + + +---------+--------+ + | Medication | Sig | Dispensed | Refills | Start | End Date | | | | | | Date | | + + + +---------+--------+ + | albuterol 90 | Inhale 2 puffs into | | 0 | | | | mcg/puff inhaler | the lungs every 6 | | | | | | | hours as needed for | | | | | | | Wheezing. | | | | | + + + +---------+--------+ + | artificial tears | Place 1 drop into | | 0 | | | | (REFRESH PLUS) 0.5% | both eyes every 4 | | | | | | SOLN | hours as needed (DRY | | | | | | | EYES). | | | | | + + + +---------+--------+ + | ascorbic acid | Take 250 mg by mouth | | 0 | | | | (VITAMIN C) 250 MG | Daily. | | | | | | tablet | | | | | | + + + +---------+--------+ + | atenolol | Take 50 mg by mouth | | 0 | | | | (TENORMIN) 50 mg | Daily. | | | | | | tablet | | | | | | + + + +---------+--------+ + | | Take 1 tablet by | | 0 | | | | butalbital-acetamino | mouth Twice daily | | | | | | phen-caffeine | as needed for | | | | | | (FIORICET) per | Headaches. | | | | | | tablet | | | | | | + + + +---------+--------+ + | Calcium Citrate | Take 1 tablet by | | 0 | | | | 200 MG TABS | mouth 2 times daily. | | | | | + + + +---------+--------+ + | cholecalciferol | Take 2,000 Units by | | 0 | | | | (VITAMIN D-3) 1000 | mouth Daily. | | | | | | units TABS | | | | | | + + + +---------+--------+ + | clonazePAM | Take 1 mg by mouth | | 0 | | | | (KLONOPIN) 1 mg | Twice daily as | | | | | | tablet | needed for Anxiety. | | | | | + + + +---------+--------+ + | cyanocobalamin | Take 1,000 mcg by | | 0 | | | | (VITAMIN B-12) 1000 | mouth Daily. | | | | | | MCG tablet | | | | | | + + + +---------+--------+ + | cyclobenzaprine | Take 10 mg by mouth | | 0 | | | | (FLEXERIL) 10 mg | Twice daily as | | | | | | tablet | needed for Muscle | | | | | | | spasms. | | | | | + + + +---------+--------+ + | diazePAM (VALIUM) | Take 2 mg by mouth | | 0 | | | | 2 mg tablet | Twice daily as | | | | | | | needed. | | | | | + + + +---------+--------+ + | DULoxetine | Take 60 mg by mouth | | 0 | | | | (CYMBALTA) [address] | Daily. | | | | | | capsule | | | | | | + + + +---------+--------+ + | | Take 1 tablet by | | 0 | | | | emtricitabine-tenofo | mouth Daily. | | | | | | vir DF (TRUVADA) | | | | | | | 200-300 mg per | | | | | | | tablet | | | | | | + + + +---------+--------+ + | fentaNYL | Place 1 patch onto | | 0 | | | | (DURAGESIC) 12 | the skin every 72 | | | | | | mcg/hr | hours. | | | | | + + + +---------+--------+ + | | Take 25 mg by mouth | | 0 | | | | hydroCHLOROthiazide | Daily. | | | | | | 25 mg tablet | | | | | | + + + +---------+--------+ + | | Take 1 tablet by | | 0 | | | | HYDROcodone-acetamin | mouth every 6 hours | | | | | | ophen (NORCO) 10-325 | as needed for Pain. | | | | | | mg per tablet | | | | | | + + + +---------+--------+ + | hydrocortisone | Place 25 mg rectally | | 0 | | | | (ANUSOL-HC) 25 mg | 3 times daily as | | | | | | suppository | needed. | | | | | + + + +---------+--------+ + | ibuprofen | Take 600 mg by mouth | | 0 | | | | (ADVIL,MOTRIN) 600 | every 6 hours as | | | | | | MG tablet | needed for Pain. | | | | | + + + +---------+--------+ + | lactobacillus | Take 2 tablets by | | 0 | | | | acidophilus & bulgar | mouth 3 times daily | | | | | | (LACTINEX) chewable | (with meals). | | | | | | tablet | | | | | | + + + +---------+--------+ + | lidocaine 5% | Apply 35 g topically | | 0 | | | | ointment | Twice daily as | | | | | | | needed (PAIN). | | | | | + + + +---------+--------+ + | MENTHOL-METHYL | Apply topically 3 | | 0 | | | | SALICYLATE EX | times daily as | | | | | | | needed (PAIN). | | | | | + + + +---------+--------+ + | methocarbamol | Take 750 mg by mouth | | 0 | | | | (ROBAXIN) 750 mg | 3 times daily as | | | | | | tablet | needed for Muscle | | | | | | | spasms. | | | | | + + + +---------+--------+ + | mirtazapine | Take 7.5 mg by mouth | | 0 | | | | (REMERON) 15 MG | nightly. | | | | | | tablet | | | | | | + + + +---------+--------+ + | Multiple Vitamin | Take 1 tablet by | | 0 | | | | (THERAGRAN PO) | mouth Daily. | | | | | + + + +---------+--------+ + | NALOXONE HCL NA | by Nasal route. | | 0 | | | + + + +---------+--------+ + | oxyCODONE 10 MG | Take 10 mg by mouth | | 0 | | | | TABS | every 6 hours as | | | | | | | needed (PAIN). | | | | | + + + +---------+--------+ + | potassium chloride | Take 10 mEq by mouth | | 0 | | | | (KLOR-CON) 10 mEq | Daily. | | | | | | CR tablet | | | | | | + + + +---------+--------+ + documented as of this encounter Plan of Treatment Not on filedocumented as of this encounter Procedures + +--------+ + + + | Procedure Name | Priori | Date/Time | Associated Diagnosis | Comments | | | ty | | | | + +--------+ + + + | ECHO COMPLETE | Routin | 08/19/2017 | Marfan's syndrome | Results for this | | | e | 4:28 PM | with skeletal | procedure are in the | | | | PDT | manifestation | results section. | + +--------+ + + + documented in this encounter Results ECHO Complete (08/19/2017 4:28 PM PDT) + +-------+ + + + | Component | Value | Ref Range | Performed | Pathologist | | | | | At | Signature | + +-------+ + + + | LVEF-TTE | 70 | | [facility] | | | TRANSTHORAC | | | | | | IC ECHO | | | | | + +-------+ + + + + + | Specimen | + + | | + + + +-- + | Narrative | P erformed At | + +-- + | Transthoracic | [facility] | | Echocardiography Report (TTE) Demographics Patient Name DINORA | | | TINA Room Number MICHEAL Patient Number | | | [id number] Date of Study 08/19/2017 Visit | | | Number [id number] | | | Referring Physician TANI PIEDRA Number | | | DAPHNIE Date of | | | 1980 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 Procedure | | | dateDate: 08/19/2017Start: 04:03 PM Technical Quality: Good | | | visualizationStudy Location: Echo LabIndications: Marfan Syndrome | | | 759.82/Q87.40.Patient Status: RoutineHeight: 69 inchesWeight: 142 | | | poundsBSA: 1.79 m^2BMI: 20.97 kg/m^2Rhythm: Normal Sinus Rhythm | | | ConclusionsSummaryA normal 2-D echo/M-mode/Doppler/color Doppler | | | study.No evidence of cardiac manifestation of Marfan's syndrome. | | | Signature | | | | | | AM | | | -------- FindingsMitral ValveMitral valve appears structurally and | | | functionally normal.Mild mitral regurgitation.Aortic ValveAortic valve | | | is trileaflet without significant stenosis or regurgitation.Tricuspid | | | ValveStructurally normal tricuspid valve with mild | | | regurgitation.Pulmonic ValveStructurally normal pulmonic valve without | | | significant stenosis orregurgitation.Left AtriumNormal size left | | | atrium.Left VentricleLeft ventricle is normal in size and function. | | | Ejection fraction isestimated at 70 %.Right AtriumNormal right atrial | | | size.Right VentricleNormal right ventricular size.Right ventricle | | | global systolic function is normal.TAPSE = 2.5 cm. Valves Mitral | | | Valve Peak E-Wave: 1.19 m/s KSENIA PISA: | | | 0.05 cm^2 Peak A-Wave: 0.62 m/s Tissue Doppler Septal e' Velocity: | | | 0.08 m/s Septal E/e' Ratio:15.78 Aortic Valve Tricuspid Valve TR | | | Velocity: 2.33 m/s Structures Left Atrium LA A/P Dimension: 2.57 cm | | | LA Area: 11.21 cm^2 LA Vol/BSA Index: | | | 21 mL/m^2 LA Volume: 37.58 ml | | | EF | | | [id number]% Left Ventricle Diastolic Dimension: 4.91 cm | | | Systolic Dimension: 3.44 cm Septum Diastolic: 0.87 cm PW Diastolic: | | | 0.87 cm EF Calculated: 70% Miscellaneous Aorta Aortic Root: 2.92 cm | | | Ascending Aorta: 2.95 cm | | | Electronically signed by ARPITA MORTON MD(Interpreting physician) on | | | 08/20/2017 06:22 AM | | | | | | | | |Findings | | |Mitral Valve | | |Mitral valve appears structurally and functionally normal. | | |Mild mitral regurgitation. | | |Aortic Valve | | |Aortic valve is trileaflet without significant stenosis or regurgitation. | | |Tricuspid Valve | | |Structurally normal tricuspid valve with mild regurgitation. | | |Pulmonic Valve | | |Structurally normal pulmonic valve without significant stenosis or | | |regurgitation. | | |Left Atrium | | |Normal size left atrium. | | |Left Ventricle | | |Left ventricle is normal in size and function. Ejection fraction is | | |estimated at 70 %. | | |Right Atrium | | |Normal right atrial size. | | |Right Ventricle | | |Normal right ventricular size. | | |Right ventricle global systolic function is normal. | | |TAPSE = 2.5 cm. | | | | | |Valves | | | | | | Mitral Valve | | | | | | Peak E-Wave: 1.19 m/s KSENIA PISA: 0.05 cm^2 | | | Peak A-Wave: 0.62 m/s | | | | | | Tissue Doppler | | | | | | Septal e' Velocity: 0.08 m/s | | | Septal E/e' Ratio:15.78 | | | | | | Aortic Valve | | | | | | Tricuspid Valve | | | | | | TR Velocity: 2.33 m/s | | | | | |Structures | | | | | | Left Atrium | | | | | | LA A/P Dimension: 2.57 cm LA Area: 11.21 cm^2 | | | LA Vol/BSA Index: 21 mL/m^2 LA Volume: 37.58 ml | | | EF [id number]% | | | | | | Left Ventricle | | | | | | Diastolic Dimension: 4.91 cm Systolic Dimension: 3.44 cm | | | Septum Diastolic: 0.87 cm | | | PW Diastolic: 0.87 cm | | | EF Calculated: 70% | | | | | | Miscellaneous | | | | | | Aorta | | | | | | Aortic Root: 2.92 cm | | | Ascending Aorta: 2.95 cm | | | | | + +-- + + + | Procedure Note | + + | Franko, Rad Results In - 08/20/2017 6:22 AM PDT Transthoracic Echocardiography Report | | (TTE) Demographics Patient Name DINORA WALTERS Room Number MICHEAL | | Patient Number [id number] Date of Study 08/19/2017 Visit Number | | [id number] Referring Physician TANI PIEDRA Number | | DAPHNIE Date of 1980 | | 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 ADDISON DHILLON | | [facility] Age 37 year(s) Interpreting PRAVEEN PALM | | 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 ARPITA MORTON, | | Gender Female Nurse | | Stress TechnicianProcedureType of Study TTE procedure: ECHO | | Complete.Procedure dateDate: 08/19/2017Start: 04:03 PMTechnical Quality: Good | | visualizationStudy Location: Echo LabIndications: Marfan Syndrome 759.82/Q87.40.Patient | | Status: RoutineHeight: 69 inchesWeight: 142 poundsBSA: 1.79 m^2BMI: 20.97 kg/m^2Rhythm: | | Normal Sinus RhythmConclusionsSummaryA normal 2-D echo/M-mode/Doppler/color Doppler | | study.No evidence of cardiac manifestation of Marfan's | | syndrome.Signature | | ------ Electronically signed by ARPITA MORTON MD(Interpreting physician) on | | 08/20/2017 06:22 | | AM FindingsMi | | tral ValveMitral valve appears structurally and functionally normal.Mild mitral | | regurgitation.Aortic ValveAortic valve is trileaflet without significant stenosis or | | regurgitation.Tricuspid ValveStructurally normal tricuspid valve with mild | | regurgitation.Pulmonic ValveStructurally normal pulmonic valve without significant | | stenosis orregurgitation.Left AtriumNormal size left atrium.Left VentricleLeft ventricle | | is normal in size and function. Ejection fraction isestimated at 70 %.Right | | AtriumNormal right atrial size.Right VentricleNormal right ventricular size.Right | | ventricle global systolic function is normal.TAPSE = 2.5 cm.Valves Mitral Valve Peak | | E-Wave: 1.19 m/s KSENIA PISA: 0.05 cm^2 Peak A-Wave: 0.62 m/s Tissue | | Doppler Septal e' Velocity: 0.08 m/s Septal E/e' Ratio:15.78 Aortic Valve Tricuspid | | Valve TR Velocity: 2.33 m/sStructures Left Atrium LA A/P Dimension: 2.57 cm | | LA Area: 11.21 cm^2 LA Vol/BSA Index: 21 mL/m^2 LA Volume: | | 37.58 ml EF Uovwqxvlw48% Left Ventricle | | Diastolic Dimension: 4.91 cm Systolic Dimension: 3.44 cm Septum Diastolic: 0.87 | | cm PW Diastolic: 0.87 cm EF Calculated: 70% Miscellaneous Aorta Aortic Root: 2.92 cm | | Ascending Aorta: 2.95 cm | |Indications: Marfan Syndrome 759.82/Q87.40. | |Patient Status: Routine | |Height: 69 inchesWeight: 142 poundsBSA: 1.79 m^2BMI: 20.97 kg/m^2 | |Rhythm: Normal Sinus Rhythm | | | |Conclusions | |Summary | |A normal 2-D echo/M-mode/Doppler/color Doppler study. | |No evidence of cardiac manifestation of Marfan's syndrome. | | | |Signature | | | | Electronically signed by ARPITA MORTON MD(Interpreting physician) on | | 08/20/2017 06:22 AM | | | | | |Findings | |Mitral Valve | |Mitral valve appears structurally and functionally normal. | |Mild mitral regurgitation. | |Aortic Valve | |Aortic valve is trileaflet without significant stenosis or regurgitation. | |Tricuspid Valve | |Structurally normal tricuspid valve with mild regurgitation. | |Pulmonic Valve | |Structurally normal pulmonic valve without significant stenosis or | |regurgitation. | |Left Atrium | |Normal size left atrium. | |Left Ventricle | |Left ventricle is normal in size and function. Ejection fraction is | |estimated at 70 %. | |Right Atrium | |Normal right atrial size. | |Right Ventricle | |Normal right ventricular size. | |Right ventricle global systolic function is normal. | |TAPSE = 2.5 cm. | | | |Valves | | | | Mitral Valve | | | | Peak E-Wave: 1.19 m/s KSENIA PISA: 0.05 cm^2 | | Peak A-Wave: 0.62 m/s | | | | Tissue Doppler | | | | Septal e' Velocity: 0.08 m/s | | Septal E/e' Ratio:15.78 | | | | Aortic Valve | | | | Tricuspid Valve | | | | TR Velocity: 2.33 m/s | | | |Structures | | | | Left Atrium | | | | LA A/P Dimension: 2.57 cm LA Area: 11.21 cm^2 | | LA Vol/BSA Index: 21 mL/m^2 LA Volume: 37.58 ml | | EF Ifaybeier35% | | | | Left Ventricle | | | | Diastolic Dimension: 4.91 cm Systolic Dimension: 3.44 cm | | Septum Diastolic: 0.87 cm | | PW Diastolic: 0.87 cm | | EF Calculated: 70% | | | | Miscellaneous | | | | Aorta | | | | Aortic Root: 2.92 cm | | Ascending Aorta: 2.95 cm | + + + +---------+ + + | Performing | Address | City/State/Zipcode | Phone Number | | Organization | | | | + +---------+ + + | [facility] | | | | + +---------+ + + documented in this encounter Visit Diagnoses + + | Diagnosis | + + | Marfan's syndrome with skeletal manifestation Marfan's syndrome | + + documented in this encounter"
--- OUTSIDE RECORDS SUMMARY | ~2020-05-08 | XMS | Encounter Summary ---
Demographics + + + | Address | [address] | | | [place] [address] | + + + | Home Phone | | + + + | Preferred Language | Unknown | + + + | Marital Status | | + + + | Quaker Affiliation | [id number] | + + + | Race | Unknown | + + + | Ethnic Group | Unknown | + + + Author + + + | Author | [facility] | | | and Luis Enriqueana | + + + | Organization | [facility] | | | and Luis [...] Team Providers + +------+ + | Care Interior Design Teacher Name | Role | Phone | + +------+ + PCP | Unavailable | + +------+ + Encounter Details +--------+ + + + + | Date | Type | Department | Care Team | Description | +--------+ + + + + | 10/19/ | Emergency | [facility] | Joseph Bullock, | Compression fracture | | 2013 - | | MEDICAL CENTER | MD Tati MALDONADO | of C-spine, initial | | | | EMERGENCY CENTER | [place] [address] | encounter (HCC); | | 10/20/ | | Tati MALDONADO | [phone] | Cervical | | 2013 | | [place], [place] | | radiculopathy | | | | [address] | | | | | | [phone] | | | +--------+ + + + [...] ED Notes Conversion Transaction, Provider Unknown - 10/20/2014 2:16 AM PSTFormatting of this note m ight be different from the original. ED Notes by Damian Cristina RN at 12/08/24 216 Author: Damian Cristina RN Service: (none) Author Type: Registered Nurse Filed: 10/20/14216 Date of Service: 10/20/14215 Status: Signed Animal Cruelty Investigation Supervisor: Damian Cristina RN (Registered Nurse) Pt awake alert. Resting quietly, Soft collar intac, Damian Cristina RN 10/20/14216 Joseph Simpson MD - 10/19/2014 11:07 PM PST ED Provider Notes by Joseph Bullock MD at 10/19/142306 Author: Joseph Bullock MD Service: (none) Author Type: Physician Filed: 10/25/142230 Date of Service: 10/19/142306 Status: Signed Animal Cruelty Investigation Supervisor: Joseph Bullock MD (Physician) Procedures Additional Documentation Procedures [facility] Department of Emergency Medicine History of Present Illness Patient Identification Tina Farias is a 34 y.o. female. Patient information was obtained from patient. History/Exam limitations: none. Patient presented to the Emergency Department Car Room: Chief Complaint Chief Complaint Patient presents with Torticollis Numbness to bilateral arms for past 2 days The pt presents to the ED with complaints of arm numbness. Onset of sx was 2 days ago, wit h a intermittent course. She's had 4 episodes in the last 2 days. Sx are described as a se nsation that feels like needles. The sx are described to be of moderate severity. Pt also c/o arm weakness. The pt denies fevers, chills, diarrhea, constipation, pain when urinating , rashes. There was no care prior to arrival. Primary Care Doctor: Marcella Marti Past Medical History Diagnosis Date Hypertension Marfan syndrome Migraine Past Surgical History Procedure Laterality Date Hysterectomy Cholecystectomy Gastric bypass Prior to Admission medications Medication Sig Start Date End Date Taking? Authorizing Provider acidophilus (LACTINEX) chewable tablet Take 2 tablets by mouth 3 (three) times daily with martir puente. Yes Historical Provider ascorbic acid (VITAMIN C) 250 MG tablet Take 250 mg by mouth daily. Yes Historical Prov ider atenolol (TENORMIN) 50 MG tablet Take 50 mg by mouth daily. Yes Historical Provider clonazePAM (KLONOPIN) 0.5 MG tablet Take 0.5 mg by mouth 2 (two) times daily as needed for Anxiety. Yes Historical Provider cyclobenzaprine (FLEXERIL) 10 MG tablet Take 10 mg by mouth 3 (three) times daily as needed for Muscle spasms. Yes Historical Provider duloxetine (CYMBALTA) 60 MG capsule Take 60 mg by mouth daily. Yes Historical Provider hydrochlorothiazide (HYDRODIURIL) 25 MG tablet Take 25 mg by mouth daily. Yes Historical Provider potassium chloride (K-TAB) 10 MEQ CR tablet Take 10 mEq by mouth 2 (two) times daily with m eals. Yes Historical Provider mjcyqnmvbz-zrfcilhjkrrsd-sgzaalbw (FIORICET WITH CODEINE) 05-045-88-30 MG per capsule Take 1 capsule by mouth every 4 (four) hours as needed. 10/19/14 Historical Provider diazepam (VALIUM) 5 MG tablet Take 5 mg by mouth every 6 (six) hours as needed. 10/19/14 Historical Provider losartan (COZAAR) 50 MG tablet Take 50 mg by mouth daily. 10/19/14 Historical Provider oxycodone-acetaminophen (LYNOX) 5-300 MG per tablet Take 1 tablet by mouth every 4 (four) h ours as needed. 10/19/14 Historical Provider pregabalin (LYRICA) 150 MG capsule Take 150 mg by mouth 2 (two) times daily. [facility] Allergies Allergen Reactions Meloxicam Other (See Comments) Methylergonovine Maleate Other (See Comments) History Social History Marital Status: Spouse Name: N/A Number of Children: N/A Years of Education: N/A Occupational History Not on file. Social History Main Topics Smoking status: Never Smoker Smokeless tobacco: Not on file Alcohol Use: No Drug Use: Yes Special: Marijuana Sexual Activity: Partners: Male Other Topics Concern Not on file Social History Narrative No family history on file. Review of Systems No fevers No chills No nausea No vomiting No decreased vision No hearing loss No difficulty swallowing No difficulty breathing No headache No chest pain No abdominal pain Yes arm paresthesias Yes arm weakness No rash No difficulty with urination No difficulty with bowel movement Pt does not report other relevant complaints except as described in the HPI See HPI for further relevant details. All systems otherwise negative, except as recorded above and as recorded in the HPI. Physical Exam BP 109/75 | Pulse 64 | Temp(Src) 97.8 F (36.6 C) (Oral) | Resp 18 | Wt 84 kg (185 lb 3 oz) | SpO2 98% INTERPRETATION OF VITALS Normal Pulse Oximetry interpretation: Normal PHYSICAL EXAM Appearance: Alert. No acute distress. Head: Normal external exam Eyes: Normal inspection. ENT: Normal external ENT inspection. Neck: Supple. Surgical scar to the neck. TTP of cervical spine. Axial loading and flexion o f the neck reproduces symptoms. CVS: Normal heart rate and rhythm. Heart sounds normal. Pulse normal. Respiratory: No respiratory distress. Breath sounds normal. No rales or rhonchi. Abdomen: Soft and nontender. No rebound or guarding. Back: Moves without difficulty. Skin: Skin warm. Extremities: No deformity. Normal neuro exam of the upper extremities. Good pulse. Neuro: Oriented. Moves all extremities. Medical Decision Making and Emergency Department Course ED Medical Decision Making: Pt has been afebrile. Does not use IV drugs. Concern to rule our any nerve compromise. Will do MRI to evaluate further. ED Department Course: 12:36 AM Imaging reviewed. 12:56 AM Labs reviewed. 1:34 AM Pt recheck. The patient is stable at this time. 1:[address] Mancia, neurosurgery, who recommends the patient follow up out-nabila ent. Additionally, she could use a soft-collar but does not need a cervical collar. 1:50 AM Pt recheck. The patient is stable at this time. No apparent tenderness to the head. I discussed all ED results and my clinical impression with the patient. I advised follow up with a PCP and we discussed the emergent signs and symptoms that would necessitate a return to ED. All questions and concerns addressed. Patient understands and agrees with tx plan. Jose noriega for discharge home. ED Medication Administration from 10/19/20142047 to 10/20/2014 0147 Date/Time Order Dose Route Action Action by 10/20/2014 0144 HYDROmorphone (DILAUDID) injection 0.5 mg 0.5 mg Intravenous Given Damian Cristina RN Visit Vitals Filed Vitals: 10/19/14 2059 10/19/14 2205 10/19/14 2326 10/20/14 0034 BP: 119/62 109/75 111/66 114/69 Pulse: 89 64 65 70 Temp: 97.8 F (36.6 C) 98.7 F (37.1 C) TempSrc: Oral Oral Resp: 18 18 16 18 Weight: 84 kg (185 lb 3 oz) SpO2: 99% 98% 96% 98% Records Reviewed Reviewed nursing triage notes available at time of initial pt encounter. Orders Placed Orders Placed This Encounter Procedures MRI cervical spine without contrast CBC w Auto Diff Basic Metabolic Panel C-Reactive Protein Nursing communication Medications HYDROmorphone (DILAUDID) injection 0.5 mg (0.5 mg Intravenous Given 10/20/14 0144) Laboratory Evaluation Labs Reviewed CBC W/AUTO DIFF (REFLEX TO MANUAL) - Abnormal; Notable for the following: HGB 10.8 (*) HCT 33.7 (*) MCV 78.3 (*) MCH 25.1 (*) All other components within normal limits BASIC METABOLIC PANEL - Abnormal; Notable for the following: POTASSIUM 3.1 (*) BUN 27 (*) CREATININE 1.38 (*) EGFR 46 (*) All other components within normal limits C-REACTIVE PROTEIN I have reviewed lab results from the emergency department workup and abnormal results have been posted to the chart. Pertinent positive and negative findings have been addressed appropriately. Radiology and EKG Evaluation Imaging Results MRI cervical spine without contrast (Final result) Result time: 10/20/14 00:36:48 Procedure changed from MRI C-Spine with and without contrast Final result by Rad Results In [place] (10/20/14 00:36:48) Impression: 1. IMPRESSION: 2. Prior posterior decompression of the spinal canal at C4-C5 for spinal stenosis visualiz ed on 02/02/12. 3. Persistent small 3 mm area of myelopathy in the cervical spinal cord at C4 due to prior spinal stenosis. 4. Mild, acute or subacute superior endplate compression fracture of the C7 vertebral body . 5. Mild subligamentous disc herniation at multiple levels, with mild bilateral or unilater al neural foraminal encroachment at C3-C4, C4-C5, and C5-C6. 6. Borderline spinal stenosis at C6-C7, unchanged. Narrative: TINA FARIAS MRI CERVICAL SPINE WO CONTRAST 10/19/2014 11:54 PM History:34 years Female. Neck pain. Technique: Utilizing a 1.5 Aishwarya magnet, sagittal T1, stir, and T2 imaging was performed t hrough the cervical spine from the level of C1-T4. Axial T2 imaging was performed from the level of C2 through T1. Comparison examinations: 02/02/12 C2-C3: The disk space height is normal. Neural foraminal canals are open. No herniated di sk. The facet joints are normal. C3-C4: The intervertebral disk space height is normal. Broad subligamentous disc herniation measures 3 mm, with mild encroachment of the right neural foraminal canal. No spinal stenos is identified. C4-C5: There is mild narrowing of the intervertebral disk space. Mild bilateral neural fora emily encroachment is noted, due to disc herniation. A small area of abnormal signal is noted in the central portion of the cervical spinal cord at the level of C4, best visualized on images 5-6, series 2 and 5, suggesting demyelination , or prior injury of the spinal cord. No spinal cord atrophy identified, however. There is n o evidence of spinal stenosis at this level. This finding was also present on the prior exam ination 02/02/12. Partial laminectomy is visualized at C4 and C5. C5-C6: There is mild narrowing of the intervertebral disk space. Broad subligamentous disc herniation measures 3 mm, with mild neural foraminal encroachment bilaterally. C6-C7: There is mild narrowing of the intervertebral disk space. Broad subligamentous disc herniation measures 3 mm, without neural foraminal encroachment. Borderline spinal stenosis is noted at this level. C7-T1: Minimal midline subligamentous disc herniation is noted. Abnormally high signal is n oted in the posterior C7 vertebral body due to an acute or subacute superior endplate depres shivam fracture, without loss of height. This finding is new as compared to 2412. No neoplastic findings. The paraspinal soft tissues are unremarkable. The posterior fossa is partially visualized and appears normal. The remainder of the cervical spinal cord is normal. ED Diagnoses Final diagnoses Compression fracture of C-spine, initial encounter C7 Cervical radiculopathy Disposition: ED Disposition Orders Discharge Condition at discharge: Stable Follow-up Information Follow up With Details Comments Contact Info [facility] Emergency Department If symptoms worsen [address] [facility] [address] Marcella Marti PA-C In [address] [place] [address] Shiv Mancia MD Schedule an appointment as soon as possible for a visit [address] [facility] [id number] Discharge Medications: Discharge Medication List as of 10/20/2014 1:58 AM Joseph Bullock MD, [facility] Attending Note: Documentation assistance provided by Marcos De La Cruz (Scribe). Information recorded by the scribe has been reviewed and validated by me. I ag ree with its contents. Joseph Bullock MD 10/25/142230 onversio n Transaction, Provider Unknown - 10/19/2014 10:54 PM PSTFormatting of this note might be di fferent from the original. ED Notes by Jocelyn Perez RN at 10/19/142253 Author: Jocelyn Perez RN Service: (none) Author Type: Registered Nurse Filed: 10/19/142253 Date of Service: 10/19/142253 Status: Signed Animal Cruelty Investigation Supervisor: Jocelyn Perez RN (Registered Nurse) Dr Bullock at pt bs Jocelyn Perez RN 10/19/142253 onver shivam Transaction, Provider Unknown - 10/19/2014 10:01 PM PST ED Notes by Jocelyn Perez RN at 10/19/142200 Author: Jocelyn Perez RN Service: (none) Author Type: Registered Nurse Filed: 10/19/142204 Date of Service: 10/19/142200 Status: Addendum Animal Cruelty Investigation Supervisor: Jocelyn Perez RN (Registered Nurse) Related Notes: Original Note by Jocelyn Perez RN (Registered Nurse) filed at 10/19/142202 Pt states "I broke my neck about 3yrs ago and ever since I have numbness to my left side i f I'm standing up. But recently its getting worse and I can not continue like this" Pt den ies any trouble urinating or having BM. + with trouble standing. Jocelyn Perez RN 10/19/142202 Jocelyn Perez RN 10/19/142204 docume nted in this encounter Plan of Treatment Not on filedocumented as of this encounter Procedures + +--------+ + + + | Procedure Name | Priori | Date/Time | Associated Diagnosis | Comments | | | ty | | | | + +--------+ + + + | EXTERNAL LAB: CBC | Routin | 10/20/2014 | | Results for this | | | e | 12:17 AM | | procedure are in the | | | | PST | | results section. | + +--------+ + + + | C-REACTIVE PROTEIN | Routin | 10/20/2014 | | Results for this | | | e | 12:17 AM | | procedure are in the | | | | PST | | results section. | + +--------+ + + + | BASIC METABOLIC | Routin | 10/20/2014 | | Results for this | | PANEL | e | 12:17 AM | | procedure are in the | | | | PST | | results section. | + +--------+ + + + | MRI CERVICAL SPINE | Routin | 10/19/2014 | | Results for this | | WO CONTRAST | e | 11:54 PM | | procedure are in the | | | | PST | | results section. | + +--------+ + + + documented in this encounter Results External Lab: CBC (10/20/2014 12:17 AM PST) + + + + + + | Component | Value | Ref Range | Performed | Pathologist | | | | | At | Signature | + + + + + + | WBC | 7.9Comment: Testing | 3.8 - 11.0 K/uL | EXTERNAL | | | | performed at [facility];[address] | | LAB | | | | [address];[place] | | | | | | [address] | | | | + + + + + + | Red Blood | 4.30Comment: Testing | 3.70 - 5.10 | EXTERNAL | | | Cells | performed at [facility];888 | M/uL | LAB | | | Counted | [address];[place] | | | | | | [address] | | | | + + + + + + | Hemoglobin | 10.8 (L)Comment: Testing | 11.3 - 15.5 | EXTERNAL | | | | performed at [facility];888 | g/dL | LAB | | | | [address];[place] | | | | | | [address] | | | | + + + + + + | Hematocrit, | 33.7 (L)Comment: Testing | 34.0 - 46.0 % | EXTERNAL | | | POC | performed at [facility];[address] | | LAB | | | | [address];[place] | | | | | | [address] | | | | + + + + + + | MCV | 78.3 (L)Comment: Testing | 80.0 - 100.0 fl | EXTERNAL | | | | performed at [facility];[address] | | LAB | | | | [address];[place] | | | | | | [address] | | | | + + + + + + | MCH | 25.1 (L)Comment: Testing | 27.0 - 34.0 pg | EXTERNAL | | | | performed at [facility];[address] | | LAB | | | | [address];[place] | | | | | | [address] | | | | + + + + + + | MCHC | 32.1Comment: Testing | 32.0 - 35.5 | EXTERNAL | | | | performed at [facility];[address] | g/dL | LAB | | | | [address];[place] | | | | | | [address] | | | | + + + + + + | RDW-CV | 52.1Comment: Testing | 37 - 53 fl | EXTERNAL | | | | performed at [facility];[address] | | LAB | | | | [address];[place] | | | | | | [address] | | | | + + + + + + | Platelet | 284Comment: Testing | 150 - 400 K/uL | EXTERNAL | | | Count | performed at [facility];[address] | | LAB | | | Plasma | [address];[place] | | | | | | [address] | | | | + + + + + + | MPV | 10.4Comment: Testing | fl | EXTERNAL | | | | performed at [facility];[address] | | LAB | | | | [address];[place] | | | | | | [address] | | | | + + + + + + | Differentia | AUTOMATEDComment: | | EXTERNAL | | | l Type | Testing performed at | | LAB | | | | [facility];[address];[place] [address] | | | | + + + + + + | % Segmented | 52.7Comment: Testing | % | EXTERNAL | | | | performed at [facility];[address] | | LAB | | | Neutrophils | [address];[place] | | | | | | [address] | | | | + + + + + + | % | 32.3Comment: Testing | % | EXTERNAL | | | Lymphocytes | performed at [facility];[address] | | LAB | | | | [address];[place] | | | | | | [address] | | | | + + + + + + | % Monocytes | 7.8Comment: Testing | % | EXTERNAL | | | | performed at [facility];[address] | | LAB | | | | [address];[place] | | | | | | [address] | | | | + + + + + + | % | 6.5Comment: Testing | % | EXTERNAL | | | Eosinophils | performed at [facility];[address] | | LAB | | | | [address];[place] | | | | | | [address] | | | | + + + + + + | % Basophils | 0.7Comment: Testing | % | EXTERNAL | | | | performed at [facility];[address] | | LAB | | | | [address];[place] | | | | | | [address] | | | | + + + + + + | Absolute | 4.2Comment: Testing | 1.9 - 7.4 K/uL | EXTERNAL | | | Segmented | performed at [facility];[address] | | LAB | | | Neutrophils | [address];[place] | | | | | | [address] | | | | + + + + + + | Absolute | 2.6Comment: Testing | 1.0 - 3.9 K/uL | EXTERNAL | | | Lymphocytes | performed at [facility];[address] | | LAB | | | | [address];[place] | | | | | | [address] | | | | + + + + + + | Absolute | 0.6Comment: Testing | 0 - 0.8 K/uL | EXTERNAL | | | Monocytes | performed at [facility];[address] | | LAB | | | | [address];[place] | | | | | | [address] | | | | + + + + + + | Absolute | 0.5Comment: Testing | 0 - 0.5 K/uL | EXTERNAL | | | Eosinophils | performed at [facility];[address] | | LAB | | | | [address];[place] | | | | | | [address] | | | | + + + + + + | Absolute | 0.1Comment: Testing | 0 - 0.1 K/uL | EXTERNAL | | | Basophils | performed at [facility];[address] | | LAB | | | | [address];[place] | | | | | | [address] | | | | + + + + + + | RBC | 1+Comment: | | EXTERNAL | | | Morphology | ANISO1+ELLIPTONORMAL PLT | | LAB | | | | MORPHTesting performed | | | | | | at [facility];[address];[place] [address] | | | | | |NORMAL PLT MORPH | | | | | |Testing performed at [facility];[address];[place] [address] | | | | | | | | | | + + + + + + | Platelet | ADEQUATEComment: Testing | | EXTERNAL | | | Estimate | performed at [facility];[address] | | LAB | | | | [address];[place] | | | | | | [address] | | | | + + + + + + + + | Specimen | + + | Blood specimen | | (specimen) | + + + +---------+ + + | Performing | Address | City/State/Zipcode | Phone Number | | Organization | | | | + +---------+ + + | EXTERNAL LAB | | | | + +---------+ + + C-Reactive Protein (10/20/2014 12:17 AM PST) + + + + + + | Component | Value | Ref Range | Performed | Pathologist | | | | | At | Signature | + + + + + + | CRP | <0.3Comment: Testing | mg/dL | EXTERNAL | | | | performed at [facility];[address] | | LAB | | | | [address];[place], [place] | | | | | | [address] | | | | + + + + + + + + | Specimen | + + | Blood specimen | | (specimen) | + + + +---------+ + + | Performing | Address | City/State/Zipcode | Phone Number | | Organization | | | | + +---------+ + + | EXTERNAL LAB | | | | + +---------+ + + Basic Metabolic Panel (10/20/2014 12:17 AM PST) + + + + + + | Component | Value | Ref Range | Performed | Pathologist | | | | | At | Signature | + + + + + + | Na | 141Comment: Testing | 135 - 143 | EXTERNAL | | | | performed at [facility];[address] | mmol/L | LAB | | | | [address];[place] | | | | | | [address] | | | | + + + + + + | K | 3.1 (L)Comment: Testing | 3.5 - 4.9 | EXTERNAL | | | | performed at [facility];[address] | mmol/L | LAB | | | | [address];[place] | | | | | | [address] | | | | + + + + + + | Cl | 102Comment: Testing | 99 - 109 mmol/L | EXTERNAL | | | | performed at [facility];[address] | | LAB | | | | [address];[place] | | | | | | [address] | | | | + + + + + + | CO2 | 30Comment: Testing | 23 - 32 mmol/L | EXTERNAL | | | | performed at [facility];[address] | | LAB | | | | [address];[place] | | | | | | [address] | | | | + + + + + + | Anion Gap | 11Comment: Testing | 5 - 20 mmol/L | EXTERNAL | | | | performed at [facility];[address] | | LAB | | | | [address];[place] | | | | | | [address] | | | | + + + + + + | Glucose, | 89Comment: Testing | 65 - 99 mg/dL | EXTERNAL | | | Fasting | performed at [facility];[address] | | LAB | | | | [address];[place] | | | | | | [address] | | | | + + + + + + | BUN | 27 (H)Comment: Testing | 8 - 25 mg/dL | EXTERNAL | | | | performed at [facility];[address] | | LAB | | | | [address];[place] | | | | | | [address] | | | | + + + + + + | Creatinine | 1.38 (H)Comment: Testing | 0.50 - 1.00 | EXTERNAL | | | | performed at [facility];[address] | mg/dL | LAB | | | | [address];[place] | | | | | | [address] | | | | + + + + + + | BUN/Creatin | 20Comment: Testing | | EXTERNAL | | | ine Ratio | performed at [facility];[address] | | LAB | | | | [address];[place] | | | | | | [address] | | | | + + + + + + | Calcium | 8.5Comment: Testing | 8.5 - 10.2 | EXTERNAL | | | | performed at [facility];888 | mg/dL | LAB | | | | [address];[place] | | | | | | [address] | | | | + + + + + + | Estimated | 46 (L)Comment: GFR <60: | mL/min/1.73m2 | EXTERNAL | | | GFR | CHRONIC KIDNEY DISEASE, | | LAB | | | | IF FOUND OVER A 3 MONTH | | | | | | PERIOD.GFR <15: KIDNEY | | | | | | FAILURE.FOR | | | | | | AMERICANS, MULTIPLY THE | | | | | | CALCULATED GFR BY | | | | | | 1.210.Testing performed | | | | | | at [facility];[address];[place] [address] | | | | + + + + + + + + | Specimen | + + | Blood specimen | | (specimen) | + + + +---------+ + + | Performing | Address | City/State/Zipcode | Phone Number | | Organization | | | | + +---------+ + + | EXTERNAL LAB | | | | + +---------+ + + MRI Cervical Spine wo Contrast (10/19/2014 11:54 PM PST) + + | Specimen | + + | | + + + + + | Impressions | Performed At | + + + | 1. IMPRESSION: 2. Prior posterior decompression of the spinal | | | canal at C4-C5 for spinal stenosis visualized on 02/02/12. 3. | | | Persistent small 3 mm area of myelopathy in the cervical spinal cord | | | at C4 due to prior spinal stenosis. 4. Mild, acute or subacute | | | superior endplate compression fracture of the C7 vertebral body. 5. | | | Mild subligamentous disc herniation at multiple levels, with mild | | | bilateral or unilateral neural foraminal encroachment at C3-C4, C4-C5, | | | and C5-C6. 6. Borderline spinal stenosis at C6-C7, unchanged. | | | | | + + + + + + | Narrative | Performed At | + + + | [facility] CERV[facility] WO CONTRAST 10/19/2014 11:54 PM | | | History:34 years Female. Neck pain. Technique: Utilizing | | | a 1.5 Aishwarya magnet, sagittal T1, stir, and T2 imaging was performed | | | through the cervical spine from the level of C1-T4. Axial T2 | | | imaging was performed from the level of C2 through T1. Comparison | | | examinations: 02/02/12 C2-C3: The disk space height is normal. | | | Neural foraminal canals are open. No herniated disk. The facet | | | joints are normal. C3-C4: The intervertebral disk space height is | | | normal. Broad subligamentous disc herniation measures 3 mm, with mild | | | encroachment of the right neural foraminal canal. No spinal stenosis | | | identified. C4-C5: There is mild narrowing of the intervertebral | | | disk space. Mild bilateral neural foraminal encroachment is noted, due | | | to disc herniation. A small area of abnormal signal is noted in | | | the central portion of the cervical spinal cord at the level of C4, | | | best visualized on images 5-6, series 2 and 5, suggesting | | | demyelination, or prior injury of the spinal cord. No spinal cord | | | atrophy identified, however. There is no evidence of spinal stenosis | | | at this level. This finding was also present on the prior examination | | | 02/02/12. Partial laminectomy is visualized at C4 and C5. C5-C6: | | | There is mild narrowing of the intervertebral disk space. Broad | | | subligamentous disc herniation measures 3 mm, with mild neural | | | foraminal encroachment bilaterally. C6-C7: There is mild narrowing | | | of the intervertebral disk space. Broad subligamentous disc | | | herniation measures 3 mm, without neural foraminal encroachment. | | | Borderline spinal stenosis is noted at this level. C7-T1: Minimal | | | midline subligamentous disc herniation is noted. Abnormally high | | | signal is noted in the posterior C7 vertebral body due to an acute or | | | subacute superior endplate depression fracture, without loss of | | | height. This finding is new as compared to 2411. No neoplastic | | | findings. The paraspinal soft tissues are unremarkable. The | | | posterior fossa is partially visualized and appears normal. The | | | remainder of the cervical spinal cord is normal. | | + + + + + | Procedure Note | + + | Franko, Rad Conversion - 06/26/2019 10:03 AM PDT [facility] CERV[facility] WO | | BKLNTOSB72/9/2014 11:54 PM History:34 years Female. Neck pain. Technique: Utilizing | | a 1.5 Aishwarya magnet, sagittal T1, stir, and T2 imaging was performed through the cervical | | spine from the level of C1-T4. Axial T2 imaging was performed from the level of C2 | | through T1. Comparison examinations: 02/02/12 C2-C3: The disk space height is normal. | | Neural foraminal canals are open. No herniated disk. The facet joints are normal. | | C3-C4: The intervertebral disk space height is normal. Broad subligamentous disc | | herniation measures 3 mm, with mild encroachment of the right neural foraminal canal. No | | spinal stenosis identified. C4-C5: There is mild narrowing of the intervertebral disk | | space. Mild bilateral neural foraminal encroachment is noted, due to disc herniation. A | | small area of abnormal signal is noted in the central portion of the cervical spinal | | cord at the level of C4, best visualized on images 5-6, series 2 and 5, suggesting | | demyelination, or prior injury of the spinal cord. No spinal cord atrophy identified, | | however. There is no evidence of spinal stenosis at this level. This finding was also | | present on the prior examination 02/02/12. Partial laminectomy is visualized at C4 and | | C5. C5-C6: There is mild narrowing of the intervertebral disk space. Broad | | subligamentous disc herniation measures 3 mm, with mild neural foraminal encroachment | | bilaterally. C6-C7: There is mild narrowing of the intervertebral disk space. Broad | | subligamentous disc herniation measures 3 mm, without neural foraminal encroachment. | | Borderline spinal stenosis is noted at this level. C7-T1: Minimal midline subligamentous | | disc herniation is noted. Abnormally high signal is noted in the posterior C7 vertebral | | body due to an acute or subacute superior endplate depression fracture, without loss of | | height. This finding is new as compared to 2412. No neoplastic findings. The | | paraspinal soft tissues are unremarkable. The posterior fossa is partially visualized | | and appears normal. The remainder of the cervical spinal cord is normal. IMPRESSION: 1. | | IMPRESSION:2. Prior posterior decompression of the spinal canal at C4-C5 for spinal | | stenosis visualized on 02/02/12.3. Persistent small 3 mm area of myelopathy in the | | cervical spinal cord at C4 due to prior spinal stenosis.4. Mild, acute or subacute | | superior endplate compression fracture of the C7 vertebral body.5. Mild subligamentous | | disc herniation at multiple levels, with mild bilateral or unilateral neural foraminal | | encroachment at C3-C4, C4-C5, and C5-C6.6. Borderline spinal stenosis at C6-C7, | | unchanged. | |IMPRESSION: | |1. IMPRESSION: | |2. Prior posterior decompression of the spinal canal at C4-C5 for spinal stenosis visualiz ed on 02/02/12. | |3. Persistent small 3 mm area of myelopathy in the cervical spinal cord at C4 due to prior spinal stenosis. | |4. Mild, acute or subacute superior endplate compression fracture of the C7 vertebral body . | |5. Mild subligamentous disc herniation at multiple levels, with mild bilateral or unilater al neural foraminal encroachment at C3-C4, C4-C5, and C5-C6. | |6. Borderline spinal stenosis at C6-C7, unchanged. | | | | | + + documented in this encounter Visit Diagnoses + + | Diagnosis | + + | Compression fracture of C-spine, initial encounter (HCC) | + + | Cervical radiculopathy Brachial neuritis or radiculitis nos | + + documented in this encounter
--- OUTSIDE RECORDS SUMMARY | ~2020-05-08 | XMS | Encounter Summary ---
Demographics + + + | Address | [address] | | | [place] [address] | + + + | Home Phone | | + + + | Preferred Language | Unknown | + + + | Marital Status | | + + + | Orthodoxy Affiliation | 1013 | + + + | Race | Unknown | + + + | Ethnic Group | Unknown | + + + Author + + + | Author | [facility] | | | and Luis Enriqueana | + + + | Organization | [facility] | | | and Luis [...] Team Providers + +------+ + | Care Belt Repairer Name | Role | Phone | + +------+ + PCP | Unavailable | + +------+ + Encounter Details +--------+ + + + + | Date | Type | Department | Care Team | Description | +--------+ + + + + | / | [facility] | [facility] | | | | 2011 | Encounter | MED CTR XRAY [address] | | | | | | [address] [place] | | | | | | [place] [id number] | | | | | | [phone] | | | +--------+ + + + [...] + +--------+ + + + | MRI KNEE RIGHT WO | | 01/09/2012 | | Results for this | | CONTRAST | | 7:38 AM | | procedure are in the | | | | PST | | results section. | + +--------+ + + + | MRI SHOULDER LEFT WO | | 01/09/2012 | | Results for this | | CONTRAST | | 7:38 AM | | procedure are in the | | | | PST | | results section. | + +--------+ + + + | MRI SHOULDER RIGHT | | 01/09/2012 | | Results for this | | WO CONTRAST | | 7:38 AM | | procedure are in the | | | | PST | | results section. | + +--------+ + + + documented in this encounter Results MRI Knee Right wo Contrast (01/09/2012 7:38 AM PST) + + | Specimen | + + | | + + + + + | Narrative | Performed At | + + + | [facility] Diagnostic Imaging Department | [facility] | | [address] [facility] | [facility] | | MRI RIGHT KNEE CLINICAL | DIAG IMG | | HISTORY: RIGHT KNEE PAIN WITH POPPING AND GIVING WAY. HISTORY OF | | | PRIOR SURGERY, TYPE NOT SPECIFIED. TECHNIQUE: Coronal T1 and | | | proton-density; sagittal T2 and proton-density; and axial | | | proton-density sequences are reviewed. FINDINGS: No significant | | | joint effusion is present. There are no areas of abnormal marrow | | | signal to indicate fracture or bony injury. Medial collateral | | | ligament and lateral collateral ligament complex show a normal fiber | | | orientation and signal. Anterior and posterior cruciate ligaments | | | also appear within normal limits. Quadriceps and patellar tendons | | | are normal. The lateral meniscus is truncated in its mid portion. | | | No displaced fragment is seen, and this may be postoperative | | | change from prior partial lateral meniscectomy. The residual | | | lateral meniscus shows a normal signal. The medial meniscus shows | | | a normal contour and signal throughout. Articular cartilage of the | | | medial and lateral compartments appears normal. This patient has | | | a shallow intercondylar groove, especially medially. The patella | | | is tilted laterally and the articular cartilage of the lateral | | | patellar facet is very thin to completely absent. The subchondral | | | bone of the lateral portion of the patella shows mild sclerotic | | | change. The medial patellar retinacula is very lax. | | | IMPRESSION: 1. CONTOUR OF THE LATERAL MENISCUS SUGGESTS PRIOR | | | PARTIAL MENISCECTOMY. 2. 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 Dictated Date/Time: 01/09/2012 | | | 11:39 Transcribed Date/Time: 01/09/2012 11:46 Production Gear Cutter: | | | <Electronically Signed by Armani Briggs MD> 01/25/12 | | | 1129 | | + + + + + | Procedure Note | + + | Franko, Rad Conversion - 12/18/2013 4:50 PM [facility] | | Diagnostic Imaging Department | | [address] [facility] | | | | | | | | MRI RIGHT KNEE | | | | CLINICAL HISTORY: RIGHT KNEE PAIN WITH POPPING AND GIVING WAY. HISTORY OF | | PRIOR SURGERY, TYPE NOT SPECIFIED. | | | | TECHNIQUE: Coronal T1 and proton-density; sagittal T2 and proton-density; and | | axial proton-density sequences are reviewed. | | | | FINDINGS: No significant joint effusion is present. There are no areas of | | abnormal marrow signal to indicate fracture or bony injury. | | | | Medial collateral ligament and lateral collateral ligament complex show a | | normal fiber orientation and signal. Anterior and posterior cruciate ligaments | | also appear within normal limits. Quadriceps and patellar tendons are normal. | | | | The lateral meniscus is truncated in its mid portion. No displaced fragment is | | seen, and this may be postoperative change from prior partial lateral | | meniscectomy. The residual lateral meniscus shows a normal signal. The medial | | meniscus shows a normal contour and signal throughout. Articular cartilage of | | the medial and lateral compartments appears normal. | | | | This patient has a shallow intercondylar groove, especially medially. The | | patella is tilted laterally and the articular cartilage of the lateral patellar | | facet is very thin to completely absent. The subchondral bone of the lateral | | portion of the patella shows mild sclerotic change. The medial patellar | | retinacula is very lax. | | | | IMPRESSION: | | 1. CONTOUR OF THE LATERAL MENISCUS SUGGESTS PRIOR PARTIAL MENISCECTOMY. | | | | 2. CHRONIC LATERAL PATELLAR TILT WITH A LAX MEDIAL PATELLAR RETINACULA AND | | ADVANCED DEGENERATIVE CHANGES OF THE LATERAL PATELLOFEMORAL JOINT. | | | | Dictated Date/Time: 01/09/2012 11:39 | | Transcribed Date/Time: 01/09/2012 11:46 | | Production Gear Cutter: | | <Electronically Signed by Armani Briggs MD> 01/25/12 1129 | + + + +---------+ + + | Performing | Address | City/State/Zipcode | Phone Number | | Organization | | | | + +---------+ + + | [place] | | | | | [facility] | | | | + +---------+ + + MRI Shoulder Left wo Contrast (01/09/2012 7:38 AM PST) + + | Specimen | + + | | + + + + + | Narrative | Performed At | + + + | [facility] Diagnostic Imaging Department | [facility] | | [address] [place] [place] | [facility] | | LEFT SHOULDER MRI CLINICAL | DIAG IMG | | HISTORY: BILATERAL SHOULDER PAIN AND WEAKNESS. KNOWN SEVERE | | | CERVICAL STENOSIS. TECHNIQUE: Multiplanar, multisequence | | | imaging of the shoulders was performed, without contrast. | | | COMPARISON: MRI right shoulder also completed this date. | | | FINDINGS: As on the right shoulder, this patient is positioned in | | | the internal rotation. This may relate to the recently identified | | | cervical myelopathy. The patient has symmetric bony deformities | | | with a shallow flat glenoid and a long coracoid which extends | | | anterolaterally across the anterior aspect of the glenohumeral | | | joint. The subscapularis tendon is thickened and bunched, | | | presumably secondary to the internal rotation though chronic | | | impingement across the anterior aspect of the shoulder joint, | | | between the humeral head and abnormal coracoid would be a | | | consideration. Biceps tendon is normally positioned and crosses | | | normally to the labral anchor. Supraspinatus tendon is within the | | | normal range in appearances. Acromioclavicular joint and acromion | | | appear normal. The glenoid kuldeep show a normal appearance. No | | | areas of abnormal marrow signal or effusion are present. | | | IMPRESSION: 1. MATCHING ANATOMIC DEFORMITIES TO THE OPPOSING RIGHT | | | SHOULDER WHICH IS ALSO IMAGED TODAY. THESE INCLUDE A SOMEWHAT | | | SHALLOW, FLATTENED GLENOID AND A LONG CORACOID WHICH EXTENDS | | | ANTEROLATERALLY ACROSS THE ANTERIOR ASPECT OF THE JOINT. 2. | | | THICKENED APPEARANCE TO THE SUBSCAPULARIS TENDON WHICH MAY BE | | | POSITIONAL DESCRIBED, CHRONIC IMPINGEMENT UNDER THE ABNORMAL | | | CORACOID WOULD ALSO BE A CONSIDERATION. OTHERWISE NEGATIVE MRI OF | | | THE SHOULDER. Dictated Date/Time: 01/09/2012 11:47 Transcribed | | | Date/Time: 01/09/2012 11:53 Production Gear Cutter: | | | <Electronically Signed by Armani Briggs MD> 01/09/12 1725 | | + + + + + | Procedure Note | + + | Franko, Rad Conversion - 12/18/2013 4:50 PM [facility] | | Diagnostic Imaging Department | | [address] [facility] [address] | | | | | | | | LEFT SHOULDER MRI | | | | CLINICAL HISTORY: BILATERAL SHOULDER PAIN AND WEAKNESS. KNOWN SEVERE CERVICAL | | STENOSIS. | | | | TECHNIQUE: Multiplanar, multisequence imaging of the shoulders was performed, | | without contrast. | | | | COMPARISON: MRI right shoulder also completed this date. | | | | FINDINGS: As on the right shoulder, this patient is positioned in the internal | | rotation. This may relate to the recently identified cervical myelopathy. The | | patient has symmetric bony deformities with a shallow flat glenoid and a long | | coracoid which extends anterolaterally across the anterior aspect of the | | glenohumeral joint. The subscapularis tendon is thickened and bunched, | | presumably secondary to the internal rotation though chronic impingement across | | the anterior aspect of the shoulder joint, between the humeral head and | | abnormal coracoid would be a consideration. Biceps tendon is normally | | positioned and crosses normally to the labral anchor. Supraspinatus tendon is | | within the normal range in appearances. Acromioclavicular joint and acromion | | appear normal. The glenoid kuldeep show a normal appearance. No areas of | | abnormal marrow signal or effusion are present. | | | | IMPRESSION: | | 1. MATCHING ANATOMIC DEFORMITIES TO THE OPPOSING RIGHT SHOULDER WHICH IS ALSO | | IMAGED TODAY. THESE INCLUDE A SOMEWHAT SHALLOW, FLATTENED GLENOID AND A LONG | | CORACOID WHICH EXTENDS ANTEROLATERALLY ACROSS THE ANTERIOR ASPECT OF THE JOINT. | | | | | | 2. THICKENED APPEARANCE TO THE SUBSCAPULARIS TENDON WHICH MAY BE POSITIONAL | | DESCRIBED, CHRONIC IMPINGEMENT UNDER THE ABNORMAL CORACOID WOULD ALSO BE A | | CONSIDERATION. OTHERWISE NEGATIVE MRI OF THE SHOULDER. | | | | Dictated Date/Time: 01/09/2012 11:47 | | Transcribed Date/Time: 01/09/2012 11:53 | | Production Gear Cutter: | | <Electronically Signed by Armani Briggs MD> 01/09/12 3149 | + + + +---------+ + + | Performing | Address | City/State/Zipcode | Phone Number | | Organization | | | | + +---------+ + + | [facility] | | | | | [facility] | | | | + +---------+ + + MRI Shoulder Right wo Contrast (01/09/2012 7:38 AM PST) + + | Specimen | + + | | + + + + + | Narrative | Performed At | + + + | [facility] | [place] | | [address] | [place] | | MRI RIGHT SHOULDER SHOULDER | DIAG IMG | | CLINICAL HISTORY: RIGHT SHOULDER PAIN AND WEAKNESS. KNOWN SEVERE | | | CERVICAL SPINE STENOSIS. TECHNIQUE: Multiplanar, | | | multisequence imaging of the right shoulder is performed without the | | | use of contrast. COMPARISON: Left shoulder examination also | | | performed this date. FINDINGS: The patient is positioned | | | somewhat in internal rotation for this exam. This does distort the | | | anatomy somewhat particularly in the anterior regions. A small | | | amount of degenerative subchondra l cyst formation is present in the | | | greater tuberosity. No other areas of abnormal marrow signal are | | | seen. This patient does have some developmental bony abnormality, | | | however, with a somewhat shallow f lattened glenoid and an unusual | | | configuration of the coracoid which is long and after extending anter | | | iorly from the neck of the scapula swings laterally in front of the | | | shoulder joint so that the tip of the coracoid is actually aligned | | | with the mid point of the humeral head. This produces an essential | | | bony boundary of the anterior aspect of the shoulder joint. | | | Supraspinatus tendon shows normal signal and appearance. Because of | | | the internal rotation, the subsc apularis tendon is "bunched" in the | | | anterior aspect of the shoulder, beneath the abnormal coracoid. | | | Biceps groove is rotated to an almost anterior medial position. | | | Biceps tendon shows normal signal an d appearance. Glenoid kuldeep | | | have a normal contour with no separation from the bony glenoid. | | | Posteri or portions of the shoulder capsule are intact. | | | IMPRESSION: 1. 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 IT IS DIFFICULT TO ASSESS THE S UBSCAPULARIS TENDON | | | BECAUSE OF THE PATIENT'S INTERNAL ROTATION POSITION. NO OTHER | | | ABNORMALITIES ARE IDENTIFIED. Dictated Date/Time: | | | 01/09/2012 11:43 Transcribed Date/Time: 01/09/2012 11:50 | | | Production Gear Cutter: <Electronically Signed by Armani Medellin | | | MD [place]> 01/09/12 4400 | | + + + + + | Procedure Note | + + | Uche Abdul Conversion - 12/18/2013 4:50 PM [facility] | | Diagnostic Imaging Department [address] [place] [address] | | MRI RIGHT SHOULDER SHOULDER CLINICAL HISTORY: RIGHT | | SHOULDER PAIN AND WEAKNESS. KNOWN SEVERE CERVICAL SPINE STENOSIS. TECHNIQUE: | | Multiplanar, multisequence imaging of the right shoulder is performed without the use of | | contrast. COMPARISON: Left shoulder examination also performed this date. | | FINDINGS: The patient is positioned somewhat in internal rotation for this exam. This | | does distort the anatomy somewhat particularly in the anterior regions. A small amount | | of degenerative subchondral cyst formation is present in the greater tuberosity. No | | other areas of abnormal marrow signal are seen. This patient does have some | | developmental bony abnormality, however, with a somewhat shallow flattened glenoid and | | an unusual configuration of the coracoid which is long and after extending anteriorly | | from the neck of the scapula swings laterally in front of the shoulder joint so that the | | tip of the coracoid is actually aligned with the mid point of the humeral head. This | | produces an essential bony boundary of the anterior aspect of the shoulder joint. | | Supraspinatus tendon shows normal signal and appearance. Because of the internal | | rotation, the subscapularis tendon is "bunched" in the anterior aspect of the shoulder, | | beneath the abnormal coracoid. Biceps groove is rotated to an almost anterior medial | | position. Biceps tendon shows normal signal and appearance. Glenoid kuldeep have a | | normal contour with no separation from the bony glenoid. Posterior portions of the | | shoulder capsule are intact. IMPRESSION: 1. BONY ANATOMIC VARIATION TO THE CORACOID | | AND GLENOID DESCRIBED. IT IS DIFFICULT TO ASSESS THE SUBSCAPULARIS TENDON BECAUSE OF | | THE PATIENT'S INTERNAL ROTATION POSITION. NO OTHER ABNORMALITIES ARE IDENTIFIED. | | Dictated Date/Time: 01/09/2012 11:43Transcribed Date/Time: 01/09/2012 | | 11:50Transcriptionist: <Electronically Signed by Armani Briggs MD> 01/09/12 | | 1725 | |Biceps groove is rotated to an almost anterior medial position. Biceps tendon shows normal signal an | |d appearance. Glenoid kuldeep have a normal contour with no separation from the bony glenoid . Posteri | |or portions of the shoulder capsule are intact. | | | |IMPRESSION: | |1. 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 IT IS DIFFICULT TO SESS THE S | |UBSCAPULARIS TENDON BECAUSE OF THE PATIENT'S INTERNAL ROTATION POSITION. NO OTHER ABNORMAL ITIES ARE | |IDENTIFIED. | | | |Dictated Date/Time: 01/09/2012 11:43 | |Transcribed Date/Time: 01/09/2012 11:50 | |Production Gear Cutter: | |<Electronically Signed by Armani Briggs MD> 01/09/12 1725 | + + + +---------+ + + | Performing | Address | City/State/Zipcode | Phone Number | | Organization | | | | + +---------+ + + | [facility] | | | | | [facility] | | | | + +---------+ + + documented in this encounter Visit Diagnoses Not on filedocumented in this encounter
--- OUTSIDE RECORDS SUMMARY | ~2020-05-08 | XMS | Clinical Summary ---
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 Name | Role | Phone | + +------+ + | Erich Freire MD | PCP | | + +------+ + Allergies + + + + + + | Active Allergy | Reactions | Severity | Noted | Comments | | | | | Date | | + + + + + + | Gabapentin | Other (See Comments) | | 02/27/20 | Reaction not | | | | | 17 | specified in outside | | | | | | medical records | + + + + + + | Meloxicam | Swelling, Rash | Medium | 01/03/20 | | | | | | 17 | | + + + + + + | Methylergonovine | Other (See Comments) | Medium | 02/27/20 | Reaction not | | Maleate | | | 17 | specified in outside | | | | | | medical records | + + + + + + | Pregabalin | Other (See Comments) | | 02/27/20 | Other reaction(s): | | | | | 17 | Weight gain finding | | | | | | (finding) | + + + + + + Medications + + + +---------+------+------+-------+ | Medication | Sig | Dispensed | Refills | Star | End | Statu | | | | | | t | Date | s | | | | | | Date | | | + + + +---------+------+------+-------+ | atenolol | Take 50 mg by mouth | | 0 | | | Activ | | (TENORMIN) 50 mg | Daily. | | | | | e | | tablet | | | | | | | + + + +---------+------+------+-------+ | DULoxetine | Take 60 mg by mouth | | 0 | | | Activ | | (CYMBALTA) [address] | Daily. | | | | | e | | capsule | | | | | | | + + + +---------+------+------+-------+ | | Take 1 tablet by | | 0 | | | Activ | | HYDROcodone-acetamin | mouth every 6 hours | | | | | e | | ophen (NORCO) 10-325 | as needed for Pain. | | | | | | | mg per tablet | | | | | | | + + + +---------+------+------+-------+ | | Take 1 tablet by | | 0 | | | Activ | | emtricitabine-tenofo | mouth Daily. | | | | | e | | vir DF (TRUVADA) | | | | | | | | 200-300 mg per | | | | | | | | tablet | | | | | | | + + + +---------+------+------+-------+ | lactobacillus | Take 2 tablets by | | 0 | | | Activ | | acidophilus & bulgar | mouth 3 times daily | | | | | e | | (LACTINEX) chewable | (with meals). | | | | | | | tablet | | | | | | | + + + +---------+------+------+-------+ | diazePAM (VALIUM) | Take 2 mg by mouth | | 0 | | | Activ | | 2 mg tablet | Twice daily as | | | | | e | | | needed. | | | | | | + + + +---------+------+------+-------+ | | Take 25 mg by mouth | | 0 | | | Activ | | hydroCHLOROthiazide | Daily. | | | | | e | | 25 mg tablet | | | | | | | + + + +---------+------+------+-------+ | potassium chloride | Take 10 mEq by mouth | | 0 | | | Activ | | (KLOR-CON) 10 mEq | Daily. | | | | | e | | CR tablet | | | | | | | + + + +---------+------+------+-------+ | ascorbic acid | Take 250 mg by mouth | | 0 | | | Activ | | (VITAMIN C) 250 MG | Daily. | | | | | e | | tablet | | | | | | | + + + +---------+------+------+-------+ | | Take 1 tablet by | | 0 | | | Activ | | butalbital-acetamino | mouth Twice daily | | | | | e | | phen-caffeine | as needed for | | | | | | | (FIORICET) per | Headaches. | | | | | | | tablet | | | | | | | + + + +---------+------+------+-------+ | lidocaine 5% | Apply 35 g topically | | 0 | | | Activ | | ointment | Twice daily as | | | | | e | | | needed (PAIN). | | | | | | + + + +---------+------+------+-------+ | methocarbamol | Take 750 mg by mouth | | 0 | | | Activ | | (ROBAXIN) 750 mg | 3 times daily as | | | | | e | | tablet | needed for Muscle | | | | | | | | spasms. | | | | | | + + + +---------+------+------+-------+ | MENTHOL-METHYL | Apply topically 3 | | 0 | | | Activ | | SALICYLATE EX | times daily as | | | | | e | | | needed (PAIN). | | | | | | + + + +---------+------+------+-------+ | clonazePAM | Take 1 mg by mouth | | 0 | | | Activ | | (KLONOPIN) 1 mg | Twice daily as | | | | | e | | tablet | needed for Anxiety. | | | | | | + + + +---------+------+------+-------+ | mirtazapine | Take 7.5 mg by mouth | | 0 | | | Activ | | (REMERON) 15 MG | nightly. | | | | | e | | tablet | | | | | | | + + + +---------+------+------+-------+ | artificial tears | Place 1 drop into | | 0 | | | Activ | | (REFRESH PLUS) 0.5% | both eyes every 4 | | | | | e | | SOLN | hours as needed (DRY | | | | | | | | EYES). | | | | | | + + + +---------+------+------+-------+ | hydrocortisone | Place 25 mg rectally | | 0 | | | Activ | | (ANUSOL-HC) 25 mg | 3 times daily as | | | | | e | | suppository | needed. | | | | | | + + + +---------+------+------+-------+ | Multiple Vitamin | Take 1 tablet by | | 0 | | | Activ | | (THERAGRAN PO) | mouth Daily. | | | | | e | + + + +---------+------+------+-------+ | cyanocobalamin | Take 1,000 mcg by | | 0 | | | Activ | | (VITAMIN B-12) 1000 | mouth Daily. | | | | | e | | MCG tablet | | | | | | | + + + +---------+------+------+-------+ | oxyCODONE 10 MG | Take 10 mg by mouth | | 0 | | | Activ | | TABS | every 6 hours as | | | | | e | | | needed (PAIN). | | | | | | + + + +---------+------+------+-------+ | cyclobenzaprine | Take 10 mg by mouth | | 0 | | | Activ | | (FLEXERIL) 10 mg | Twice daily as | | | | | e | | tablet | needed for Muscle | | | | | | | | spasms. | | | | | | + + + +---------+------+------+-------+ | ibuprofen | Take 600 mg by mouth | | 0 | | | Activ | | (ADVIL,MOTRIN) 600 | every 6 hours as | | | | | e | | MG tablet | needed for Pain. | | | | | | + + + +---------+------+------+-------+ | fentaNYL | Place 1 patch onto | | 0 | | | Activ | | (DURAGESIC) 12 | the skin every 72 | | | | | e | | mcg/hr | hours. | | | | | | + + + +---------+------+------+-------+ | NALOXONE HCL NA | by Nasal route. | | 0 | | | Activ | | | | | | | | e | + + + +---------+------+------+-------+ | Calcium Citrate | Take 1 tablet by | | 0 | | | Activ | | 200 MG TABS | mouth 2 times daily. | | | | | e | + + + +---------+------+------+-------+ | cholecalciferol | Take 2,000 Units by | | 0 | | | Activ | | (VITAMIN D-3) 1000 | mouth Daily. | | | | | e | | units TABS | | | | | | | + + + +---------+------+------+-------+ | albuterol 90 | Inhale 2 puffs into | | 0 | | | Activ | | mcg/puff inhaler | the lungs every 6 | | | | | e | | | hours as needed for | | | | | | | | Wheezing. | | | | | | + + + +---------+------+------+-------+ Active Problems + + + | Problem | Noted Date | + + + | Iron deficiency anemia | 01/01/2017 | + + + Social History + +-------+ [...] on file | | + + + Last Filed Vital Signs + + + + + | Vital Sign | Reading | Time Taken | Comments | + + + + + | Blood Pressure | 120/69 | 01/09/2017 11:06 AM | | | | | PST | | + + + + + | Pulse | 69 | 01/09/2017 11:06 AM | | | | | PST | | + + + + + | Temperature | 36.4 C (97.5 F) | 01/09/2017 11:06 AM | | | | | PST | | + + + + + | Respiratory Rate | 16 | 01/09/2017 11:06 AM | | | | | PST | | + + + + + | Oxygen Saturation | 100% | 01/09/2017 11:06 AM | | | | | PST | [...] + + + + Plan of Treatment + + + + + | Health Maintenance | Due Date | Last | Comments | | | | Done | | + + + + + | Vaccine: Influenza | | 09/25/20 | | | (Season Ended) | 0 | 16, | | | | | 09/11/20 | | | | | 12 | | + + + + + | Vaccine: | | 02/18/20 | | | Dtap/Tdap/Td (3 - | 2 | 12, | | | Td) | | 02/18/20 | | | | | 12, | | | | | 07/12/20 | | | | | 09 | | + + + + + Results Not on filefrom Last 3 Months Insurance + +--------+ +--------+-------+---------+--------+ | Payer | Benefi | Subscriber | Effect | Phone | Address | Type | | | t Plan | ID | carolyn | | | | | | / | | Dates | | | | | | Group | | | | | | + +--------+ +--------+-------+---------+--------+ | [employer] | [employer] | [id number] | 11/11/19 | | | Indemn | | | NS | | 17-Pre | | | ity | | | ADMIN | | sent | | | | | | [place] | | | | | | | | [place] | | | | | | + +--------+ +--------+-------+---------+--------+ | [employer] | [place] | [id number] | 11/11/19 | | | Indemn | | | COMMUN | | 17-Pre | | | ity | | | ITY | | sent | | | | | | CARE | | | | | | + +--------+ +--------+-------+---------+--------+ + +--------+ +--------+ + + | Guarantor Name | Accoun | Relation to | Date | Phone | Billing Address | | | t Type | Patient | of | | | | | | | | | | + +--------+ +--------+ + + | Tina Ho | Person | Self [birth year] | [address] | | | al/Fam | | 1980 | [phone] | [place] [address] | | | shay | | | 4 (Home) | | + +--------+ +--------+ + + Advance Directives + + + + + | Type | Date Recorded | Patient | Explanation | | | | 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
--- OUTSIDE RECORDS SUMMARY | ~2020-05-08 | XMS | Encounter Summary ---
Demographics + + + | Address | [address] | | | [place] [address] | + + + | Home Phone | | + + + | Preferred Language | Unknown | + + + | Marital Status | | + + + | Worship Affiliation | 1013 | + + + | Race | Unknown | + + + | Ethnic Group | Unknown | + + + Author + + + | Author | [facility] | | | and Luis Enriqueana | + + + | Organization | [facility] | | | and [...] Team Providers + +------+ + | Care Carpet Layer Helper Name | Role | Phone | + +------+ + PCP | Unavailable | + +------+ + Encounter Details +--------+ + + + + | Date | Type | Department | Care Team | Description | +--------+ + + + + | 11/16/ | Emergency | [facility] | Candido Kidd, | Neck pain; Fall, | | 2014 | | MEDICAL CENTER | MD Tati MALDONADO | initial encounter; | | | | EMERGENCY CENTER | [place], [place] | Multiple contusions | | | | [address] | [address] | | | | | [place], [place] | [phone] | | | | | [address] | | | | | | [phone] | | | +--------+ + + + [...] ED Notes Conversion Transaction, Provider Unknown - 11/16/2014 10:27 PM PSTFormatting of this note m ight be different from the original. ED Notes by Jocelyn Perez RN at 11/16/14 2461 Author: oJcelyn Perez RN Service: (none) Author Type: Registered Nurse Filed: 11/16/142227 Date of Service: 11/16/142226 Status: Signed Conformal Pad Former: Jocelyn Perez RN (Registered Nurse) MD notified that we dont have canes. rx for cane Jocelyn Perez RN 11/16/142227 onver shivam Transaction, Provider Unknown - 11/16/2014 10:18 PM PST ED Notes by Jocelyn Perez RN at 11/16/142217 Author: Jocelyn Perez RN Service: (none) Author Type: Registered Nurse Filed: 11/16/142217 Date of Service: 11/16/142217 Status: Signed Conformal Pad Former: Jocelyn Perez RN (Registered Nurse) Assumed pt care Jocelyn Perez RN 11/16/142217 onver shivam Transaction, Provider Unknown - 11/16/2014 7:53 PM PST ED Notes by Damian Cristina RN at 11/16/141952 Author: Damian Cristina RN Service: (none) Author Type: Registered Nurse Filed: 11/16/141952 Date of Service: 11/16/141952 Status: Signed Conformal Pad Former: Damian Cristina RN (Registered Nurse) MD at bedside. Damian Cristina RN 11/16/141952 onver shivam Transaction, Provider Unknown - 11/16/2014 7:51 PM PST ED Notes by Damian Cristina RN at 11/16/141950 Author: Damian Cristina RN Service: (none) Author Type: Registered Nurse Filed: 11/16/142012 Date of Service: 11/16/141950 Status: Addendum Conformal Pad Former: Damian Cristina RN (Registered Nurse) Related Notes: Original Note by Damian Cristina RN (Registered Nurse) filed at 11/16/14 19 53 Pt here with report of weakness to arms x 1 week and 3 falls in past 3 days from " legs giv ing out". Pt noted with multiple old looking bruises to L knee. R knee also noted with blue and yellow bruises in various stages of healing. Both L and R knees have mild swelling and n o obvious deformity. Damian Cristina RN 11/16/141952 Damian Cristina RN 11/16/142012 Shaunna troncoso, Candido Guzman MD - 11/16/2014 7:49 PM PST ED Provider Notes by Candido Kidd MD at 11/16/141948 Author: Candido Kidd MD Service: (none) Author Type: Physician Filed: 11/16/142230 Date of Service: 11/16/141948 Status: Signed Conformal Pad Former: Candido Kidd MD (Physician) [facility] Department of Emergency Medicine HPI History of Present Illness Patient Identification Tina Farias is a 34 y.o. female. Patient information was obtained from patient. History/Exam limitations: none. Patient presented to the Emergency Department by: Car Chief Complaint Chief Complaint Patient presents with Fall about two hours ago and injured left knee, back and neck, no loc or n/v The patient presents to the ED for evaluation of multiple falls. Onset of symptoms was this week, with an intermittent and increasing course since that time. The symptoms are describ ed to be of moderate severity. The patient also complains of arm weakness that has increased , ALLEN, occasional bladder incontinence for the past few months, back pain and neck pain that are chronic per pt. The patient describes the quality and location of the symptoms as the f ollowing: Pt relays that she broke her neck 3 years ago and got a titanium agnes in place. 3 m onths ago pt developed arm weakness and last week she developed leg weakness. In the last fe w days pt reports falling 3 times. Pt reports that it feels like her arms are "disappearing" when they are placed at her side and she is concerned for increased weakness. Pt states caitlin t she has an appointment with neurosurgery on 12-17-14. Pt indicates that she takes hydrocodo ne for her chronic pain and when needed she takes oxycodone. Pt is R hand dominant On 01-05-11 pt had a neck fusion at the [facility] Past Medical History Diagnosis Date Hypertension Marfan syndrome Migraine Past Surgical History Procedure Laterality Date Hysterectomy Cholecystectomy Gastric bypass Prior to Admission medications Medication Sig Start Date End Date Taking? Authorizing Provider acidophilus (LACTINEX) chewable tablet Take 2 tablets by mouth 3 (three) times daily with m eals. Historical Provider ascorbic acid (VITAMIN C) 250 MG tablet Take 250 mg by mouth daily. Historical Provide r atenolol (TENORMIN) 50 MG tablet Take 50 mg by mouth daily. Historical Provider clonazePAM (KLONOPIN) 0.5 MG tablet Take 0.5 mg by mouth 2 (two) times daily as needed for Anxiety. Historical Provider cyclobenzaprine (FLEXERIL) 10 MG tablet Take 10 mg by mouth 3 (three) times daily as needed for Muscle spasms. Historical Provider duloxetine (CYMBALTA) 60 MG capsule Take 60 mg by mouth daily. Historical Provider hydrochlorothiazide (HYDRODIURIL) 25 MG tablet Take 25 mg by mouth daily. Historical Pro vider potassium chloride (K-TAB) 10 MEQ CR tablet Take 10 mEq by mouth 2 (two) times daily with m eals. Historical Provider Allergies Allergen Reactions Meloxicam Other (See [...] Concern Not on file Social History Narrative History reviewed. No pertinent family history. ROS Review of Systems Constitutional: Negative for: fever, chills, fatigue, sweats or weight loss Eyes: Negative for: decreased vision or irritated eyes Nose: Negative for: nosebleed Throat: Negative for: mouth sores Cardiovascular/Respiratory: Negative for: chest pain, shortness of breath, cough Gastrointestinal: Negative for: abdominal pain, vomiting, diarrhea, black or bloody stools Genitourinary: Positive for: bladder incontinence Negative for: dysuria, hematuria Musculoskeletal: Positive for: myalgias and arthralgias, back pain, neck pain Skin: Negative for: laceration or lesion Neuro and psych: Positive for: ALLEN and leg and arm weakness, multiple falls Negative for: fainting, head injury, seizure, trouble walking Endocrine/Heme/Lymph: Negative for: swollen lymph nodes, easy bruising Physical Exam Physical Exam BP 113/55 | Pulse 71 | Temp(Src) 98.6 F (37 C) (Temporal) | Resp 16 | Ht 1.753 m (5' 9" ) | Wt 80.9 kg (178 lb 5.6 oz) | BMI 26.33 kg/m2 | SpO2 100% Pulse Oximetry interpretation: Normal General: Alert, in no apparent distress Eyes: Normal inspection, pupils equal and round, non-icteric ENT: Ears normal Nose normal Pharynx normal Neck: Normal inspection Supple No lymphadenopathy No meningismus Cardiovascular: Rate and rhythm normal No murmurs Respiratory: Breath sounds normal bilaterally Abdomen: Soft, non-tender, non-distended No guarding or rebound Back: Normal inspection Extremities: FROM Skin: Ecchymosis bilateral knees/lower leg of various ages Warm and dry No rash Neuro: No motor deficit No sensory deficit Sustained clonus in achilles bilat, Non sustained clonus in patellar bilat ED Course Medical Decision Making and Emergency Department Course ED Department Course 8:34 PM. Reviewed XR. No evidence of malalignment. Awaiting radiology report. 8:38 PM. Discussed CXR with Dr. Pan, he recommends CT. Will order. 8:56 PM. Pt recheck. Pt is stable. I discussed plan for CT and she is agreeable. 9:41 PM. Discussed findings with Dr. Mancia (neuro). He will have the office call her in the morning for a follow up appointment. 9:41 PM. I discussed plan for follow up with the pt and she understands. Pt is stable at th is time. The patient's symptoms appear chronic in nature. The patient reports that her fall ing has increased somewhat, however her biggest issue is that she received a letter today fo r her neuroscience appointment, and that appointment is not until December 17. She is curr ently happy that Dr. Mancia's office will contact her and attempt to get her in sooner. No i ndication for additional imaging at this time. I have instructed the pt to follow up with their pcp for recheck. We have discussed s/s th at would necessitate an immediate return visit to the ED. Pt verbalized their understanding of the discharge instructions. All questions and concerns address. No decompensation or n ew symptoms observed or reported during visit. Records Reviewed Old medical records. Nursing notes. Previous ED visits for similar complaints. Labs & Radiology Results Laboratory Evaluation Results None Radiology and EKG Evaluation Imaging Results CT C-Spine Non-Con (Final result) Result time: 11/16/14 21:48:46 Final result by Rad Results In Franko (11/16/14 21:48:46) Impression: 1. The lateral most screw anchoring the laminoplasty plating at the C3 level has pulled l oose from the plating and is floating behind the plate. The other 2 screws anchoring the pl ating at this level remain in satisfactory position. 2. The laminoplasty plating and screws at C4 and C5 remain in satisfactory position. 3. Chronic osseous foraminal narrowing again noted on the right at C3-C4 and on the left a t C4-C5 with possible compression of the right C4 and left C5 nerve roots. 4. No evidence of fracture. Narrative: TINA FARIAS CT CERVICAL SPINE WO CONTRAST 11/16/2014 9:26 PM HISTORY: 34 years. Female. Prior cervical decompressive laminoplasty at C3, C4 and C5 left. TECHNIQUE: Axial 1.25-mm images of the cervical spine were acquired from the lower posterior fossa thr ough T2-3 and reconstructed in coronal and sagittal planes. COMPARISON: MRI cervical spine 10/19/2014, x-ray cervical spine 11/16/2014 FINDINGS: The vertebral bodies of the cervical spine are normal in height. Slight reversal of the ce rvical lordosis is seen from C3-C6 unchanged from the previous exam. Laminoplasty screws and plating are seen at C3, C4 and C5 on the left. The lateralmost scr ew at the C3 level has pulled loose from the plating and is floating just posterior to the p late. The other 2 screws anchoring the plating at the C3 level remain in normal position. The screws and plating at C4 and C5 are in satisfactory position. The canal is patent at all levels. There is foraminal narrowing on the right at C3-C4, and on the left at C4-C5, unchanged from the previous exam. The paraspinal soft tissues are normal. The visualized soft tissues of the neck do not demonstrate obvious mass or adenopathy. The thyroid appears normal. The visualized portions of lung apices are normal. XR Cervical Spine 3 Views (In process) Diagnosis & Disposition ED Diagnoses Final diagnoses Neck pain Fall, initial encounter Multiple contusions Disposition: ED Disposition Orders Discharge Condition at discharge: Good Follow-up Information Follow up With Details Comments Contact Info [facility] They will call you in the morning for a follow up appointment [address] [facility] [phone] Marcella Marti PA-C In 1 week [address] [facility] [address] [facility] Emergency Department [facility] symptoms worsen [address] [facility] [address] Discharge Medications: New Prescriptions CANE (MOBILE APPLICATION DEVELOPER) Dispense and provide instruction as needed. Procedures Additional Documentation Procedures Attending Note: Documentation assistance provided by Heike Pitts (Scribe). Information recorded by the scribe has been reviewed and validated by me. Jane hastings with its contents. MD Candido Acuña MD 11/16/14 2231 documente d in this encounter Plan of Treatment Not on filedocumented as of this encounter Procedures + +--------+ + + + | Procedure Name | Priori | Date/Time | Associated Diagnosis | Comments | | | ty | | | | + +--------+ + + + | CT CERVICAL SPINE WO | Routin | 11/16/2014 | | Results for this | | CONTRAST | e | 9:26 PM | | procedure are in the | | | | PST | | results section. | + +--------+ + + + | XR CERVICAL SPINE 2 | Routin | 11/16/2014 | | Results for this | | OR 3 VIEWS | e | 8:19 PM | | procedure are in the | | | | PST | | results section. | + +--------+ + + + documented in this encounter Results CT Cervical Spine wo Contrast (11/16/2014 9:26 PM PST) + + | Specimen | + + | | + + + + + | Impressions | Performed At | + + + | 1. The lateral most screw anchoring the laminoplasty plating at | | | the C3 level has pulled loose from the plating and is floating behind | | | the plate. The other 2 screws anchoring the plating at this level | | | remain in satisfactory position. 2. The laminoplasty plating and | | | screws at C4 and C5 remain in satisfactory position. 3. Chronic | | | osseous foraminal narrowing again noted on the right at C3-C4 and on | | | the left at C4-C5 with possible compression of the right C4 and left | | | C5 nerve roots. 4. No evidence of fracture. Electronically | | | signed by Paxton Pan DO on 11/16/2014 9:48 PM | | + + + + + + | Narrative | Performed At | + + + | TINA FARIAS CT CERVICAL SPINE WO CONTRAST 11/16/2014 9:26 PM | | | HISTORY: 34 years. Female. Prior cervical decompressive | | | laminoplasty at C3, C4 and C5 left. TECHNIQUE: Axial 1.25-mm | | | images of the cervical spine were acquired from the lower posterior | | | fossa through T2-3 and reconstructed in coronal and sagittal planes. | | | COMPARISON: MRI cervical spine 10/19/2014, x-ray cervical spine | | | 11/16/2014 FINDINGS: The vertebral bodies of the cervical | | | spine are normal in height. Slight reversal of the cervical lordosis | | | is seen from C3-C6 unchanged from the previous exam. Laminoplasty | | | screws and plating are seen at C3, C4 and C5 on the left. The | | | lateralmost screw at the C3 level has pulled loose from the plating | | | and is floating just posterior to the plate. The other 2 screws | | | anchoring the plating at the C3 level remain in normal position. | | | The screws and plating at C4 and C5 are in satisfactory position. | | | The canal is patent at all levels. There is foraminal narrowing on | | | the right at C3-C4, and on the left at C4-C5, unchanged from the | | | previous exam. The paraspinal soft tissues are normal. The | | | visualized soft tissues of the neck do not demonstrate obvious mass or | | | adenopathy. The thyroid appears normal. The visualized | | | portions of lung apices are normal. | | + + + + + | Procedure Note | + + | Uche Abdul Conversion - 06/26/2019 2:23 AM [facility] TINA CONTRERASMaris CERVICAL SPINE WO | | CONTRAST11/16/2014 9:26 PM HISTORY:34 years. Female. Prior cervical decompressive | | laminoplasty at C3, C4 and C5 left. TECHNIQUE:Axial 1.25-mm images of the cervical spine | | were acquired from the lower posterior fossa through T2-3 and reconstructed in coronal | | and sagittal planes. COMPARISON:MRI cervical spine 10/19/2014, x-ray cervical spine | | 11/16/2014 FINDINGS: The vertebral bodies of the cervical spine are normal in height. | | Slight reversal of the cervical lordosis is seen from C3-C6 unchanged from the previous | | exam. Laminoplasty screws and plating are seen at C3, C4 and C5 on the left. The | | lateralmost screw at the C3 level has pulled loose from the plating and is floating just | | posterior to the plate. The other 2 screws anchoring the plating at the C3 level | | remain in normal position. The screws and plating at C4 and C5 are in satisfactory | | position. The canal is patent at all levels. There is foraminal narrowing on the right | | at C3-C4, and on the left at C4-C5, unchanged from the previous exam. The paraspinal | | soft tissues are normal. The visualized soft tissues of the neck do not demonstrate | | obvious mass or adenopathy. The thyroid appears normal. The visualized portions of lung | | apices are normal. IMPRESSION: 1. The lateral most screw anchoring the laminoplasty | | plating at the C3 level has pulled loose from the plating and is floating behind the | | plate. The other 2 screws anchoring the plating at this level remain in satisfactory | | position.2. The laminoplasty plating and screws at C4 and C5 remain in satisfactory | | position.3. Chronic osseous foraminal narrowing again noted on the right at C3-C4 and | | on the left at C4-C5 with possible compression of the right C4 and left C5 nerve | | roots.4. No evidence of fracture. Electronically signed by Paxton Pan DO on | | 11/16/2014 9:48 PM | |The paraspinal soft tissues are normal. | | | |The visualized soft tissues of the neck do not demonstrate obvious mass or adenopathy. | | | |The thyroid appears normal. | | | |The visualized portions of lung apices are normal. | | | |IMPRESSION: | |1. The lateral most screw anchoring the laminoplasty plating at the C3 level has pulled lo ose from the plating and is floating behind the plate. The other 2 screws anchoring the esmer ting at this level remain in satisfactory position. | |2. The laminoplasty plating and screws at C4 and C5 remain in satisfactory position. | |3. Chronic osseous foraminal narrowing again noted on the right at C3-C4 and on the left a t C4-C5 with possible compression of the right C4 and left C5 nerve roots. | |4. No evidence of fracture. | | | | | + + XR Cervical Spine 2 or 3 Views (11/16/2014 8:19 PM PST) + + | Specimen | + + | | + + + + + | Impressions | Performed At | + + + | 1. The lateral most screw at the C2 level has pulled loose from | | | the plating and is floating posterior to the laminoplasty plate. 2. | | | All other plating and screws remain in satisfactory position | | | | | + + + + + + | Narrative | Performed At | + + + | TINA FARIAS XR CERVICAL SPINE LIMITED 2-3 VIEW 11/16/2014 8:19 PM | | | HISTORY: 34 years. Female. History of decompressive | | | laminoplasty on the left from C3-C5. Worsening bilateral upper | | | extremity and lower extremity symptoms. TECHNIQUE: XR CERVICAL | | | SPINE LIMITED 2-3 VIEW. 3 view(s) obtained. COMPARISON: MRI | | | cervical spine 10/19/2014 FINDINGS: Laminoplasty plating and | | | screws are seen on the left side at C3, C4 and C5. The lateralmost | | | screw at the C3 level has pulled loose from the plating and is | | | floating posterior to the plating. All other screws remain in | | | satisfactory position. The plates are intact. No fractures are | | | noted. There is straightening of the cervical lordosis. Mild | | | spondylosis is seen at C5-C6 and C6-C7 unchanged from the previous | | | study. | | + + + + + | Procedure Note | + + | Franko Uche Conversion - 06/26/2019 2:23 AM PDT TINA FARIASXR CERVICAL SPINE LIMITED | | 2-3 VIEW11/16/2014 8:19 PM HISTORY:34 years. Female. History of decompressive | | laminoplasty on the left from C3-C5. Worsening bilateral upper extremity and lower | | extremity symptoms. TECHNIQUE:XR CERVICAL SPINE LIMITED 2-3 VIEW. 3 view(s) obtained. | | COMPARISON:MRI cervical spine 10/19/2014 FINDINGS:Laminoplasty plating and screws are | | seen on the left side at C3, C4 and C5. The lateralmost screw at the C3 level has | | pulled loose from the plating and is floating posterior to the plating. All other | | screws remain in satisfactory position. The plates are intact. No fractures are noted. | | There is straightening of the cervical lordosis. Mild spondylosis is seen at C5-C6 | | and C6-C7 unchanged from the previous study. IMPRESSION: 1. The lateral most screw at | | the C2 level has pulled loose from the plating and is floating posterior to the | | laminoplasty plate.2. All other plating and screws remain in satisfactory position | | | |FINDINGS: | |Laminoplasty plating and screws are seen on the left side at C3, C4 and C5. The lateralmos t screw at the C3 level has pulled loose from the plating and is floating posterior to the p lating. All other screws remain | |in satisfactory position. The plates | |are intact. No fractures are noted. There is straightening of the cervical lordosis. Mil d spondylosis is seen at C5-C6 and C6-C7 unchanged from the previous study. | | | |IMPRESSION: | |1. The lateral most screw at the C2 level has pulled loose from the plating and is floatin g posterior to the laminoplasty plate. | |2. All other plating and screws remain in satisfactory position | | | | | + + documented in this encounter Visit Diagnoses + + | Diagnosis | + + | Neck pain Cervicalgia | + + | Fall, initial encounter | + + | Multiple contusions Contusion of multiple sites, not elsewhere classified | + + documented in this encounter
--- OUTSIDE RECORDS SUMMARY | ~2020-05-08 | XMS | Encounter Summary ---
Demographics + + + | Address | [address] | | | [place] [address] | + + + | Home Phone | | + + + | Preferred Language | Unknown | + + + | Marital Status | | + + + | Rastafarian Affiliation | [id number] | + + + | Race | Unknown | + + + | Ethnic Group | Unknown | + + + Author + + + | Author | [facility] | | | and Luis Enriqueana | + + + | Organization | [facility] | | | and Luis [...] Team Providers + +------+ + | Care Director Of Content Marketing Name | Role | Phone | + [...] | +--------+ + + + + | 01/05/ | Hospital | [facility] | Erich Freire | Iron deficiency | | 2017 | Encounter | MED [facility] OP INF[facility]ION | MD Jose Angel 76 | anemia, unspecified | | | | [address] | [place] | iron deficiency | | | | [place] | [place] [address] | anemia type | | | | [address] | [phone] | | | | | [phone] | | | +--------+ + + + [...] + + + | Blood Pressure | 108/62 | 01/05/2017 11:04 AM | | | | | PST | | + + + + + | Pulse | 64 | 01/05/2017 11:04 AM | | | | | PST | | + + + + + | Temperature | 36.4 C (97.5 F) | 01/05/2017 11:04 AM | | | | | PST | | + + + + + | Respiratory Rate | 16 | 01/05/2017 11:04 AM | | | | | PST | | + + + + + | Oxygen Saturation | 97% | 01/05/2017 11:04 AM | | | | | PST [...] deficiency anemia, unspecified iron deficiency anemia type | + + documented in this encounter Administered Medications + +---------+ +--------+-------+------+ | Medication Order | MAR | Action | Dose | Rate | Site | | | Action | Date | | | | + +---------+ +--------+-------+------+ | iron sucrose (VENOFER) 200 mg | New Bag | 01/05/20 | 200 mg | 110 | | | in sodium chloride 0.9% 100 mL | | 17 11:41 | | mL/hr | | | IVPB 200 mg, Intravenous, | | AM PST | | | | | Administer over 60 Minutes, ONCE, | | | | | | | 01/05/17 at 1120, For 1 dose | | | | | | + +---------+ +--------+-------+------+ +---+---+ | | | +---+---+ documented in this encounter"
--- OUTSIDE RECORDS SUMMARY | ~2020-05-08 | XMS | Encounter Summary ---
Demographics + + + | Address | [address] | | | [place] [address] | + + + | Home Phone | | + + + | Preferred Language | Unknown | + + + | Marital Status | | + + + | Buddhism Affiliation | 1013 | + + + | Race | Unknown | + + + | Ethnic Group | Unknown | + + + Author + + + | Author | and [facility] | | | and Luis Enriqueana | + + + | Organization | and [facility] | | | and Luis Enriqueana [...] Team Providers + +------+ + | Care Pathology Laboratory Technologist Name | Role | Phone | + +------+ + PCP | Unavailable | + +------+ + Reason for Referral Service/Procedure (Routine) +--------+ + + + + + | Status | Reason | Specialty | Diagnoses / | Referred By | Referred To | | | | | Procedures | Contact | Contact | +--------+ + + + + + | Closed | Specialty | Infusion | Diagnoses | Tani, | Elisabet Op | | | Services | Therapy | Iron | Erich | Infusion [address] | | | Required | | deficiency | MD Jose Angel | [place] | | | | | anemia, | [address] | Sam[place], | | | | | unspecified | [place] | [place] [address] | | | | | iron | [address]ING[address] | Phone: | | | | | deficiency | [place] | [phone] | | | | | anemia type | [address] | Fax: | | | | | Procedures | Phone: | [phone] | | | | | LA INJ IRON | [phone] | | | | | | DEXTRAN, 50 | Fax: | | | | | | MG LA IV | [phone] | | | | | | INFUSION, | | | | | | | THERAP/PROPH | | | | | | | /DIAGNOST,IN | | | | | | | ITIAL,1ST | | | | | | | HOUR | | | +--------+ + + + + + Encounter Details +--------+ + + + + | Date | Type | Department | Care Team | Description | +--------+ + + + + | 01/01/ | Orders Only | [facility] | Erich Freire, | Iron deficiency | | 2017 | | MED CTR OP INFUSION | MD Carlos Wei | anemia, unspecified | | | | [address] | [place] | iron deficiency | | | | [place] | [id number] | anemia type (Primary | | | | [address] | | Dx) | | | | [phone] | | | +--------+ + + + [...] as of this encounter Plan of Treatment + + +--------+ + + | Name | Type | Priori | Associated Diagnoses | Order Schedule | | | | ty | | | + + +--------+ + + | [facility] REF[facility] | Outpatient | Routin | Iron Deficiency | Ordered: 01/01/2017 | | OP INFUSION | Referral | e | Anemia, Unspecified | | | | | | Iron Deficiency | | | | | | Anemia Type | | + + +--------+ + + documented as of this encounter Visit Diagnoses + + | Diagnosis | + + | Iron deficiency anemia, unspecified iron deficiency anemia type - Primary | + + documented in this encounter"
--- OUTSIDE RECORDS SUMMARY | ~2020-05-08 | XMS | Encounter Summary ---
Demographics + + + | Address | [address] | | | [place] [address] | + + + | Home Phone | | + + + | Preferred Language | Unknown | + + + | Marital Status | | + + + | Scientology Affiliation | 1013 | + + + | Race | Unknown | + + + | Ethnic Group | Unknown | + + + Author + + + | Author | [facility] | | | and Luis Enriqueana | + + + | Organization | [facility] | | | and Luis [...] Team Providers + +------+ + | Care Educational Coordinator Name | Role | Phone | + [...] | +--------+ + + + + | 01/09/ | Hospital | [facility] | E[place] | Iron deficiency | | 2017 | Encounter | MED CTR OP INFUSION | MD Jose Angel 76 | anemia, unspecified | | | | [address] | [place] | iron deficiency | | | | [place] | [place] [address] | anemia type | | | | [address] | [phone] | | | | | [phone] | | | +--------+ + + + [...] (VENOFER) 200 mg | New Bag | 01/10/20 | 200 mg | 110 | | | in sodium chloride 0.9% 100 mL | | 17 11:35 | | mL/hr | | | IVPB 200 mg, Intravenous, | | AM PST | | | | | Administer over 60 Minutes, ONCE, | | | | | | | 01/09/17 at 1115, For 1 dose | | | | | | + +---------+ +--------+-------+------+ +---+---+ | | | +---+---+ documented in this encounter"
--- OUTSIDE RECORDS SUMMARY | ~2020-05-08 | XMS | Encounter Summary ---
Demographics + + + | Address | [address] | | | [place] [address] | + + + | Home Phone | | + + + | Preferred Language | Unknown | + + + | Marital Status | | + + + | Scientology Affiliation | 1013 | + + + | Race | Unknown | + + + | Ethnic Group | Unknown | + + + Author + + + | Author | [facility] | | | and Luis Enriqueana | + + + | Organization | [facility] | | | and [...] Team Providers + +------+ + | Care Piercing Specialist Name | Role | Phone | + +------+ + PCP | Unavailable | + +------+ + Encounter Details +--------+ + + + + | Date | Type | Department | Care Team | Description | +--------+ + + + + | 01/08/ | Hospital | [facility] | | | | 2011 | Encounter | MED CTR XRAY [address] | | | | | | [place] | | | | | | [place] [address] | | | | | | [phone] | | | +--------+ + + + [...] + +--------+ + + + | MRI THORACIC SPINE | | 01/08/2012 | | Results for this | | WO CONTRAST | | 1:26 PM | | procedure are in the | | | | PST | | results section. | + +--------+ + + + | MRI CERVICAL SPINE | | 01/08/2012 | | Results for this | | WO CONTRAST | | 1:26 PM | | procedure are in the | | | | PST | | results section. | + +--------+ + + + documented in this encounter Results MRI Thoracic Spine wo Contrast (01/08/2012 1:26 PM PST) + + | Specimen | + + | | + + + + + | Narrative | Performed At | + + + | [facility] Diagnostic Imaging Department | [facility] | | [address] [facility] | [facility] | | MRI THORACIC SPINE CLINICAL | DIAG IMG | | HISTORY: BILATERAL UPPER EXTREMITY WEAKNESS. SEVERE CERVICAL SPINE | | | STENOSIS. TECHNIQUE: Multiplanar, multisequence imaging of the | | | thoracic spine is obtained without the use of c ontrast. | | | FINDINGS: The thoracic cord shows normal signal and appearance | | | throughout. Conus is at L1. Alignme nt of the vertebral bodies is | | | normal. Vertebral body heights are normally maintained. No areas | | | of a bnormal marrow signal are present. In contrast to the cervical | | | region, the thoracic spinal canal is capacious throughout. No | | | areas of central canal or foraminal encroachment are present. No | | | adjacent abnormalities are seen. IMPRESSION: 1. NORMAL | | | MRI OF THE THORACIC SPINE. Dictated Date/Time: 01/09/2012 10:25 | | | Transcribed Date/Time: 01/09/2012 10:28 Double End Production Grinder: | | | <Electronically Signed by Armani Briggs MD> 01/09/12 9733 | | + + + + + | Procedure Note | + + | Franko, Rad Conversion - 12/18/2013 4:50 PM [facility] | | Diagnostic Imaging Department [address] [place] [address] | | MRI THORACIC SPINE CLINICAL HISTORY: BILATERAL UPPER | | EXTREMITY WEAKNESS. SEVERE CERVICAL SPINE STENOSIS. TECHNIQUE: Multiplanar, | | multisequence imaging of the thoracic spine is obtained without the use of contrast. | | FINDINGS: The thoracic cord shows normal signal and appearance throughout. Conus is at | | L1. Alignment of the vertebral bodies is normal. Vertebral body heights are normally | | maintained. No areas of abnormal marrow signal are present. In contrast to the | | cervical region, the thoracic spinal canal is capacious throughout. No areas of central | | canal or foraminal encroachment are present. No adjacent abnormalities are seen. | | IMPRESSION: 1. NORMAL MRI OF THE THORACIC SPINE. Dictated Date/Time: 01/09/2012 | | 10:25Transcribed Date/Time: 01/09/2012 10:28Transcriptionist: <Electronically | | Signed by Armani Briggs MD> 01/09/12 [id number] | |FINDINGS: The thoracic cord shows normal signal and appearance throughout. Conus is at L1 . Alignme | |nt of the vertebral bodies is normal. Vertebral body heights are normally maintained. No areas of a | |bnormal marrow signal are present. In contrast to the cervical region, the thoracic spinal canal is | |capacious throughout. No areas of central canal or foraminal encroachment are present. No adjacent | |abnormalities are seen. | | | |IMPRESSION: | |1. NORMAL MRI OF THE THORACIC SPINE. | | | |Dictated Date/Time: 01/09/2012 10:25 | |Transcribed Date/Time: 01/09/2012 10:28 | |Double End Production Grinder: FernandaNAM | |<Electronically Signed by Armani Briggs MD> 01/09/12 1725 | + + + +---------+ + + | Performing | Address | City/State/Zipcode | Phone Number | | Organization | | | | + +---------+ + + | [place] | | | | | [facility] | | | | + +---------+ + + MRI Cervical Spine wo Contrast (01/08/2012 1:26 PM PST) + + | Specimen | + + | | + + + + + | Narrative | Performed At | + + + | [facility] Diagnostic Imaging Department | [facility] | | [address] [facility] | [facility] | | MRI OF CERVICAL SPINE, 01/09/2012 | DIAG IMG | | CLINICAL HISTORY: BILATERAL UPPER EXTREMITY WEAKNESS AND | | | PARESTHESIAS AFTER A FALL. TECHNIQUE: Sagittal T1, fast spin | | | echo T2, gradient echo GRE and STIR; coronal T1; transaxial gradie nt | | | echo T2 and fast spin echo T2. FINDINGS: The posterior fossa | | | contents included on this exam show a normal signal and appearance. Th | | | ere is high signal present in the cervical cord beginning at the | | | C3-4 level and extending down to C5. This is in the same region | | | where severe central canal stenosis is present as described below and | | | ray earances would be typical for myelopathic change. No adjacent | | | soft tissue abnormalities are seen and level by level analysis of | | | the axial images follows. C2-3: Within normal limits. C3-4: | | | This patient has a narrowed anterior to posterior canal congenitally. | | | This is further encroache d by a small broad-based disk bulge | | | measuring 3 mm in posterior extent. The result is very severe dora | | | tral canal stenosis with exclusion of all CSF signal and flattening of | | | the cord in an anterior to pos terior direction. It is at this level | | | that the myelopathic changes seen in the cord begin. C4-5: There | | | is narrowed anterior to posterior dimension to the central canal. | | | This is aggravated by a small broad-based disk bulge which is | | | asymmetric to the left. Severe central canal stenosis and comp | | | ression of the cord is present at this level as well. C5-6: The | | | canal has a slightly larger dimension but at this level there is a | | | slightly larger broad-ba sed disk bulge which has maximum posterior | | | extension of 3 mm. This produces severe central canal sten osis and | | | cord compression with no neural foraminal encroachment. C6-7: | | | There is a broad-based disk bulge measuring 3 mm in size. Central | | | canal stenosis and cord compr ession are also present at this level | | | although of a less severe degree. C7-T1: Minimal broad-based disk | | | bulge. The caliber of the canal is improved somewhat and only moderat | | | e stenosis is present without cord compression or foraminal | | | encroachment. IMPRESSION: 1. MULTILEVEL SEVERE CENTRAL CANAL | | | STENOSIS SECONDARY TO DEVELOPMENTALLY NARROWED CANAL AND MULTILEVE L | | | BROAD-BASED DISK BULGES. THESE CHANGES RESULT IN CORD COMPRESSION WITH | | | MYELOPATHIC CHANGE SEEN FROM C3-4 TO C4-5. COMMENT: RESULTS OF | | | THIS EXAMINATION WERE CALLED TO THE PATIENT'S PROVIDER AND | | | NEUROSURGICAL REVIEW W OBTAINED. Dictated Date/Time: | | | 01/09/2012 09:38 Transcribed Date/Time: 01/09/2012 10:12 | | | Double [employer] Production Grinder: <Electronically Signed by Armani Medellin | | | MD [place]> 01/09/12 [id number] | | + + + + + | Procedure Note | + + | Franko, Rad Conversion - 12/18/2013 4:50 PM [facility] | | Diagnostic Imaging Department [address] [place] [address] | | MRI OF CERVICAL SPINE, 01/09/2012 CLINICAL HISTORY: | | BILATERAL UPPER EXTREMITY WEAKNESS AND PARESTHESIAS AFTER A FALL. TECHNIQUE: Sagittal | | T1, fast spin echo T2, gradient echo GRE and STIR; coronal T1; transaxial gradient echo | | T2 and fast spin echo T2. FINDINGS: The posterior fossa contents included on this exam | | show a normal signal and appearance. There is high signal present in the cervical cord | | beginning at the C3-4 level and extending down to C5. This is in the same region where | | severe central canal stenosis is present as described below and appearances would be | | typical for myelopathic change. No adjacent soft tissue abnormalities are seen and level | | by level analysis of the axial images follows. C2-3: Within normal limits. C3-4: This | | patient has a narrowed anterior to posterior canal congenitally. This is further | | encroached by a small broad-based disk bulge measuring 3 mm in posterior extent. The | | result is very severe central canal stenosis with exclusion of all CSF signal and | | flattening of the cord in an anterior to posterior direction. It is at this level that | | the myelopathic changes seen in the cord begin. C4-5: There is narrowed anterior to | | posterior dimension to the central canal. This is aggravated by a small broad-based disk | | bulge which is asymmetric to the left. Severe central canal stenosis and compression of | | the cord is present at this level as well. C5-6: The canal has a slightly larger | | dimension but at this level there is a slightly larger broad-based disk bulge which has | | maximum posterior extension of 3 mm. This produces severe central canal stenosis and | | cord compression with no neural foraminal encroachment. C6-7: There is a broad-based | | disk bulge measuring 3 mm in size. Central canal stenosis and cord compression are also | | present at this level although of a less severe degree. C7-T1: Minimal broad-based disk | | bulge. The caliber of the canal is improved somewhat and only moderate stenosis is | | present without cord compression or foraminal encroachment. IMPRESSION: 1. MULTILEVEL | | SEVERE CENTRAL CANAL STENOSIS SECONDARY TO DEVELOPMENTALLY NARROWED CANAL AND MULTILEVEL | | BROAD-BASED DISK BULGES. THESE CHANGES RESULT IN CORD COMPRESSION WITH MYELOPATHIC | | CHANGE SEEN FROM C3-4 TO C4-5. COMMENT: RESULTS OF THIS EXAMINATION WERE CALLED TO THE | | PATIENT'S PROVIDER AND NEUROSURGICAL REVIEW WAS OBTAINED. Dictated Date/Time: | | 01/09/2012 09:38Transcribed Date/Time: 01/09/2012 10:12Transcriptionist: | | <Electronically Signed by Armani Briggs MD> 01/09/12 6637 | |osis and cord compression with no neural foraminal encroachment. | | | |C6-7: There is a broad-based disk bulge measuring 3 mm in size. Central canal stenosis and cord compr | |ession are also present at this level although of a less severe degree. | | | |C7-T1: Minimal broad-based disk bulge. The caliber of the canal is improved somewhat and on ly moderat | |e stenosis is present without cord compression or foraminal encroachment. | | | |IMPRESSION: | |1. MULTILEVEL SEVERE CENTRAL CANAL STENOSIS SECONDARY TO DEVELOPMENTALLY NARROWED CANAL AND MULTILEVE | |L BROAD-BASED DISK BULGES. THESE CHANGES RESULT IN CORD COMPRESSION WITH MYELOPATHIC CHANGE SEEN FROM | | C3-4 TO C4-5. | | | |COMMENT: RESULTS OF THIS EXAMINATION WERE CALLED TO THE PATIENT'S PROVIDER AND NEUROSURGICA L REVIEW W | | OBTAINED. | | | |Dictated Date/Time: 01/09/2012 09:38 | |Transcribed Date/Time: 01/09/2012 10:12 | |Double End Production Grinder: MELITON | |<Electronically Signed by Armani Briggs MD> 01/09/12 1725 | + + + +---------+ + + | Performing | Address | City/State/Zipcode | Phone Number | | Organization | | | | + +---------+ + + | [place] | | | | | [facility] | | | | + +---------+ + + documented in this encounter Visit Diagnoses Not on filedocumented in this encounter"
--- OUTSIDE RECORDS SUMMARY | ~2020-05-08 | XMS | Encounter Summary ---
Demographics + + + | Address | [address] | | | [place] [address] | + + + | Home Phone | | + + + | Preferred Language | Unknown | + + + | Marital Status | Single | + + + | Amish Affiliation | Unknown | + + + | Race | Unknown | + + + | Ethnic Group | Other Race | + + + Author + + + | Author | [facility] | + + + | Organization | [facility] | + + + | Address | Unknown | + + + | Phone | Unavailable | + + + Care Team Providers + +------+ + | Care Labor Relations Specialist Name | Role | Phone | + +------+ + PCP | Unavailable | + +------+ + Reason for Referral Diagnostic Testing (Urgent) +--------+--------+ + + + + | Status | Reason | Specialty | Diagnoses / | Referred By | Referred To | | | | | Procedures | Contact | Contact | +--------+--------+ + + + + | Closed | | Radiology | Procedures | [place], | [facility] | | | | | MRI SPINE | Patrick Charles, | [address] | | | | | CERVICAL WO | MD | [address] | | | | | CONTRAST | | [address] | | | | | | | [facility] | | | | | | | [place] | | | | | | | [place], [place] | | | | | | | [address] | | | | | | | Phone: | | | | | | | [phone] | | | | | | | Fax: | | | | | | | [phone] | +--------+--------+ + + + + Reason for Visit +--------+ + | Reason | Comments | +--------+ + | Trauma | | +--------+ + AUTH/CERT +--------+--------+ + + + + | Status | Reason | Specialty | Diagnoses / | Referred By | Referred To | | | | | Procedures | Contact | Contact | +--------+--------+ + + + + | Closed | | | | | | +--------+--------+ + + + + Encounter Details +--------+ + + + + | Date | Type | Department | Care Team | Description | +--------+ + + + + | 01/23/ | Hospital | [facility] [address] | Magalys Charles MD | | | 2012 - | Encounter | [address] | [address] | | | | | [id number] [facility] | Courtney [place], | | | 01/24/ | | Hospital [place], | [place] [address] | | | 2012 | | [place] [address] | [phone] | | | | | [phone] | | | | | | | Raulito Smith MD | | +--------+ + + + + [...] recent travel history available. | + + documented as of this encounter [...] + + + documented in this encounter Discharge Summaries Peter Turner MD - 01/24/2013 8:07 AM PDTTrauma Attending: I saw and examined this patient on 01/24 with the resident/NETWORK [employer]ITY [employer]INEER trauma team and agree with the findings and plan of this note PETER TURNER MD A M Odilia Canela MD - 01/24/2013 8:07 AM PDTFormatting of this note might be differe nt from the original. INPATIENT PHYSICIAN DISCHARGE SUMMARY Attending Physician: Peter Turner MD PCP: No primary provider on file. Admission Date: 01/23/2013 Discharge Date: 01/24/2013 Diagnoses Patient Active Problem List: Cervical spine fracture Acute pain Hospital Course: Tina Farias is a 32 y.o. female, who was admitted on 01/23/2013 as a Trauma transfer from [place] after sustaining a GLF and exacerbation of her previous Cervical spine fracture. [facility] . On arrival, she complained of acute on chronic neck pain, spasm and C5/6 paresthesias. No new symptoms, just worsening of her previous similar to those present prior to operation 04/2012. While at [facility], Mrs. Farias has been diagnosed and treated for the following issue s: Patient Active Hospital Problem List: 1) *Cervical spine fracture Evaluated by [facility], no myelopathy and no need for cervical collar. Cervical spine cl eared by them. CT c-spine done at OSH and MRI c-spine here. There is a high likelihood caitlin t this is not a new fracture and was demonstrated on previous imaging. "Apparently corticat ed right laminar defects on the outside CT associated with little if any T2 hyperintensity i n the paraspinal soft tissues on this MR." per Radiology read. 2) Acute pain Her pain was well controlled on oral agents at the time of discharge. Otherwise his hospital course was uneventful, pt. is stable for discharge and would like to go home. Discharge Medication List as of 01/24/2013 8:54 AM START taking these medications Details diazepam 2 mg Oral tablet Take 1 Tab by mouth four times daily as needed. Indications: MUSC LE SPASM, Disp-30 Tab, R-0, Print Prescription oxyCODONE, immediate release, 5 mg Oral tablet Take 1-3 Tabs by mouth every three hours as needed for severe pain., Disp-40 Tab, R-0, Print Prescription senna-docusate 8.6-50 mg Oral tablet Take 1 Tab by mouth two times daily., Disp-20 Tab, R-0 , Print Prescription CONTINUE these medications which have NOT CHANGED Details atenolol 50 mg Oral tablet Take 50 mg by mouth two times daily. , Historical Med cholecalciferol, Vitamin D3, 1,000 unit Oral tablet Take 1,000 Units by mouth once daily. , Historical Med DULoxetine 60 mg Oral capsule,delayed release(DR/EC) Take 120 mg by mouth once daily. , Hi storical Med ergocalciferol 50,000 unit Oral capsule Take 50,000 Units by mouth every seven days. , His torical Med ferrous sulfate 325 mg (65 mg iron) Oral tablet Take 325 mg by mouth two times daily. , Hi storical Med hydrochlorothiazide 25 mg Oral tablet Take 12.5 mg by mouth once daily. , Historical Med HYDROcodone-acetaminophen 5-500 mg Oral tablet Take 1 Tab by mouth every eight hours as nee ded. Not to exceed 6 tablets per any 24 hour period. (Not to exceed 3250 mg of acetaminophen from all products per 24 hour period.) Indications: Pain, Historical Med hydrOXYzine pamoate 25 mg Oral capsule Take 25 mg by mouth three times daily as needed. Indications: ANXIETY, Historical Med ibuprofen 600 mg Oral tablet Take 600 mg by mouth every six hours as needed. Indications : Pain, Historical Med lidocaine 5 % Topical Cream Apply to affected area four times daily as needed. Apply to af fected area., Historical Med LORazepam 0.5 mg Oral tablet Take 0.5 mg by mouth every eight hours as needed. Indicatio ns: ANXIETY, Historical Med !! pregabalin 50 mg Oral capsule Take 150 mg by mouth two times daily. Max: 600 mg/day Take 150 mg at noon and in the evening, Historical Med !! pregabalin 50 mg Oral capsule Take 200 mg by mouth once daily. Max: 600 mg/day In the morning, Historical Med SUMAtriptan 6 mg/0.5 mL Subcutaneous Solution Inject 6 mg under the skin (SUBC) as needed. A second injection may be administered at least 1 hour after the initial dose, but not more than 2 injections in a 24 hour period., Historical Med traZODone 50 mg Oral tablet Take 50 mg by mouth once daily at bedtime as needed. , Histori javi Med !! - Potential duplicate medications found. Please discuss with provider. Diet Regular Regular diet- There are no restrictions to your diet. You may eat or drink whatever you pr efer, though healthy food choices are recommended. Activity Increase activity as tolerated. Destination: Destination: Home Condition on Discharge Good Constipation Prevention -Walk as much as possible. - Drink plenty of fluids. - Eat a diet that is high in fiber. -Take your prescribed stool softener as directed daily or twice daily. -You may also need to try over the counter medications such as Miralax or a rectal dulcolax suppository to produce a bowel movement. Take these according to the package directions. Pl ease call your primary care provider or the Trauma Clinic at [phone] with any questions or concerns regarding your constipation. - If you are unable to have a bowel movement for several days and/or have abdominal pain wi th vomiting, have increased nausea and/or are not passing gas, please go directly to the [facility] to be evaluated. Your Follow-Up Plan Follow up with Your PCP . Schedule an appointment as soon as possible for a visit in [address] [place] [address]. (Neck pain and spasm) Follow up with [facility]. (As needed) Contact information: [address] [facility] Mailcode: L223a [address] [address] Follow up with SHAILA RANDLE MD. Schedule an appointment as soon as possible for a visit i n 2 weeks. (follow-up on your neck pain) Contact information: [address] [facility] [address] Outstanding labs/studies: None Discharging Physician: ODILIA SAWANT MD Attending Physician: PETER TURNER MD documented in thi s encounter Medications at Time of Discharge + + + +---------+ + + | Medication | Sig | Dispensed | Refills | Start | End Date | | | | | | Date | | + + + +---------+ + + | atenolol 50 mg | Take 50 mg by mouth | | 0 | | | | Oral tablet | two times daily. | | | | | + + + +---------+ + + | cholecalciferol, | Take 1,000 Units by | | 0 | | | | Vitamin D3, 1,000 | mouth once daily. | | | | | | unit Oral tablet | | | | | | + + + +---------+ + + | diazepam 2 mg Oral | Take 1 Tab by mouth | 30 Tab | 0 | 03/16/20 | | | tabletIndications: | four times daily as | | | 13 | | | muscle spasm | needed. Indications: | | | | | | | MUSCLE SPASM | | | | | + + + +---------+ + + | DULoxetine 60 mg | Take 120 mg by mouth | | 0 | | | | Oral capsule,delayed | once daily. | | | | | | release(DR/EC) | | | | | | + + + +---------+ + + | ergocalciferol | Take 50,000 Units by | | 0 | | | | 50,000 unit Oral | mouth every seven | | | | | | capsule | days. | | | | | + + + +---------+ + + | ferrous sulfate | Take 325 mg by mouth | | 0 | | | | 325 mg (65 mg iron) | two times daily. | | | | | | Oral tablet | | | | | | + + + +---------+ + + | | Take 12.5 mg by | | 0 | | | | hydrochlorothiazide | mouth once daily. | | | | | | 25 mg Oral tablet | | | | | | + + + +---------+ + + | | Take 1 Tab by mouth | | 0 | | | | HYDROcodone-acetamin | every eight hours as | | | | | | ophen 5-500 mg Oral | needed. Not to | | | | | | tabletIndications: | exceed 6 tablets per | | | | | | pain [...] Indications: Pain | | | | | + + + +---------+ + + | hydrOXYzine | Take 25 mg by mouth | | 0 | | | | pamoate 25 mg Oral | three times daily as | | | | | | capsuleIndications: | needed. | | | | | | anxiety | Indications: ANXIETY | | | | | + + + +---------+ + + | ibuprofen 600 mg | Take 600 mg by mouth | | 0 | | | | Oral | every six hours as | | | | | | tabletIndications: | needed. | | | | | | pain | Indications: Pain | | | | | + + + +---------+ + + | lidocaine 5 % | Apply to affected | | 0 | | | | Topical Cream | area four times | | | | | | | daily as needed. | | | | | | | Apply to affected | | | | | | | area. | | | | | + + + +---------+ + + | LORazepam 0.5 mg | Take 0.5 mg by mouth | | 0 | | | | Oral | every eight hours | | | | | | tabletIndications: | as needed. | | | | | | anxiety | Indications: ANXIETY | | | | | + + + +---------+ + + | oxyCODONE, | Take 1-3 Tabs by | 40 Tab | 0 | 03/15/20 | | | immediate release, 5 | mouth every three | | | 13 | | | mg Oral tablet | hours as needed for | | | | | | | severe pain. | | | | | + + + +---------+ + + | pregabalin 50 mg | Take 150 mg by mouth | | 0 | | | | Oral capsule | two times daily. | | | | | | | Max: 600 mg/dayTake | | | | | | | 150 mg at noon and | | | | | | | in the evening | | | | | + + + +---------+ + + | pregabalin 50 mg | Take 200 mg by mouth | | 0 | | | | Oral capsule | once daily. Max: | | | | | | | 600 mg/dayIn the | | | | | | | morning | | | | | + + + +---------+ + + | senna-docusate | Take 1 Tab by mouth | 20 Tab | 0 | 03/15/20 | | | 8.6-50 mg Oral | two times daily. | | | 13 | | | tablet | | | | | | + + + +---------+ + + | SUMAtriptan 6 | Inject 6 mg under | | 0 | | | | mg/0.5 mL | the skin (SUBC) as | | | | | | Subcutaneous | needed. A second | | | | | | Solution [...] hour period. | | | | | + + + +---------+ + + | traZODone 50 mg | Take 50 mg by mouth | | 0 | | | | Oral tablet | once daily at | | | | | | | bedtime as needed. | | | | | + + + +---------+ + + documented as of this encounter Progress Notes Peter Turner MD - 01/24/2013 6:49 AM PDTAcute Care Surgery Attending: I saw and examined this patient with the resident and nurse practitioner team today and agr ee with the findings and plan of this note. Greater than 30 minutes in care and discharge nicolle rhodes. Peter Turner MD Odilia Canela MD - 01/24/2013 6:49 AM PDT [facility] DEPARTMENT OF SURGERY Division of Trauma and Critical Care Trauma Surgery Progress Note Note Date: 01/24/2013 Admission Date: 01/23/2013 TINA FARIAS, [id number] Hospital Day #1 OVERNIGHT EVENTS: No acute events overnight SUBJECTIVE: Feeling well and ready to go home. Does have neck spasm that hasn't improved w ith flexeril in the past, valium works. MEDICATIONS: Reviewed Antibiotics: None PHYSICAL EXAM: Last Vitals: Last Vitals: BP 113/68 | Pulse 79 | Temp 36.8 C (98.2 F) | RR 16 | Ht 1.75 3 m (5' 9") | Wt 83.915 kg (185 lb) | SpO2 97% | BMI 27.32 kg/(m^2) 24 Hour Vital Min/Max: Systolic (24hrs), Av mmHg, Min:104 mmHg, Max:141 mmHg Diastolic (24hrs), Av mmHg, Min:64 mmHg, Max:89 mmHg Pulse Min: 75 Max: 109 Temp Min: 36.2 C (97.2 F) Max: 37.1 C (98.8 F) Resp Min: 9 Max: 16 SpO2 Min: 93 % Max: 100 % Intake/Output Summary (Last 24 hours) at 01/24/13 0649 Last data filed at 01/24/13 0400 Gross per 24 hour Intake 410 ml Output 1800 ml Net -1390 ml Neuro: awake, alert, and oriented Neck: supple with full ROM Lungs: CTA bilaterally CV: RRR Abdomen: non tender, soft, active BS : Patient voiding without difficulty Extremities: SCD's in place, no peripheral edema, wiggles toes and toes pink and well perfu sed FEN: tolerating regular diet Heme/ID: going home today IV site: CDI LABS: reviewed and are available in [facility] (if new data) IMPRESSION: Tina Farias is a 32 y.o. female, who was admitted on 01/23/2013 after sustaining a Cervica l spine fracture. Mr Farias has been diagnosed and treated for the following issues: Patient Active Hospital Problem List: 1) *Cervical spine fracture There is a high likelihood that this is not a new fracture and was demonstrated on previous imaging. 2) Acute pain Her pain was well controlled on oral agents at the time of discharge. Labs were drawn on 01/23/13 and are stable. Plan for today: 1. Evaluated by Spine, can d/c c-collar & no need for follow-up with them, ok to d/c home 2. Likely d/c home today This assessment and plan was formulated both independently and in conjunction with the [facility] Surgery team as well as the attending provider above, is accurate to the best of my knowl edge, and is subject to change based on clinical developments. Odilia Sawant MD Emergency Medicine Resident, PGY - 1 Pager [phone] documented in thi s encounter Plan of Treatment Not on filedocumented as of this encounter Procedures + +--------+ + + + | Procedure Name | Priori | Date/Time | Associated Diagnosis | Comments | | | ty | | | | + +--------+ + + + | MRI SPINE CERVICAL | Routin | 01/23/2013 | | Results for this | | WO CONTRAST | e | 4:55 PM | | procedure are in the | | | | PDT | | results section. | + +--------+ + + + | CONFIRMATORY ABO/RH | Urgent | 01/23/2013 | | Results for this | | | | 10:22 AM | | procedure are in the | | | | PDT | | results section. | + +--------+ + + + | X-RAY WRIST 3 VIEWS | Urgent | 01/23/2013 | | Results for this | | RIGHT | | 9:52 AM | | procedure are in the | | | | PDT | | results section. | + +--------+ + + + | X-RAY PELVIS 1 VIEW | Urgent | 01/23/2013 | | Results for this | | | | 9:52 AM | | procedure are in the | | | | PDT | | results section. | + +--------+ + + + | X-RAY ELBOW 2 VIEWS | Urgent | 01/23/2013 | | Results for this | | RIGHT | | 9:52 AM | | procedure are in the | | | | PDT | | results section. | + +--------+ + + + | X-RAY CHEST 1 VIEW | Urgent | 01/23/2013 | | Results for this | | | | 9:52 AM | | procedure are in the | | | | PDT | | results section. | + +--------+ + + + | CT SPINE THOR AND | Routin | 01/23/2013 | | Results for this | | LUMB WO CONTRAST | e | 9:12 AM | | procedure are in the | | | | PDT | | results section. | + +--------+ + + + | ANTIBODY SCREEN | Urgent | 01/23/2013 | | Results for this | | | | 8:39 AM | | procedure are in the | | | | PDT | | results section. | + +--------+ + + + | ABO & RH TYPE | Urgent | 01/23/2013 | | Results for this | | | | 8:39 AM | | procedure are in the | | | | PDT | | results section. | + +--------+ + + + | INR | Urgent | 01/23/2013 | | Results for this | | | | 8:39 AM | | procedure are in the | | | | PDT | | results section. | + +--------+ + + + | TYPE AND SCREEN | Urgent | 01/23/2013 | | Results for this | | | | 8:39 AM | | procedure are in the | | | | PDT | | results section. | + +--------+ + + + | BG-LAC,POC ISTAT | Urgent | 01/23/2013 | | Results for this | | | | 8:37 AM | | procedure are in the | | | | PDT | | results section. | + +--------+ + + + | CBC ONLY | Urgent | 01/23/2013 | | Results for this | | | | 8:19 AM | | procedure are in the | | | | PDT | | results section. | + +--------+ + + + | CBC ONLY | Urgent | 01/23/2013 | | Results for this | | | | 8:19 AM | | procedure are in the | | | | PDT | | results section. | + +--------+ + + + | ETHANOL (ALCOHOL), | Urgent | 01/23/2013 | | Results for this | | BLOOD | | 8:19 AM | | procedure are in the | | | | PDT | | results section. | + +--------+ + + + | GLUCOSE, PLASMA | Urgent | 01/23/2013 | | Results for this | | | | 8:19 AM | | procedure are in the | | | | PDT | | results section. | + +--------+ + + + documented in this encounter Results MRI SPINE CERVICAL WO CONTRAST (01/23/2013 4:55 PM PDT) + + + + + + | Component | Value | Ref Range | Performed | Pathologist | | | | | At | Signature | + + + + + + | MR CERVICAL | Clinical information: | | | | | SPINE WO | Evaluate for acute | | | | | CONTRAST | versus chronic lamina | | | | | | andfacet fractures on | | | | | | the right, hardware on | | | | | | the left. Sagittal and | | | | | | axial images were | | | | | | obtained through the | | | | | | cervical spineand | | | | | | compared to CT obtained | | | | | | January 23 2013 at [facility] | | | | | | [facility]. | | | | | | Artifact from hardware | | | | | | on the left along the | | | | | | laminae of C3 through | | | | | | I4pykgotwoz a large | | | | | | amount of artifact that | | | | | | obscures | | | | | | surroundingstructures. | | | | | | The soft tissue | | | | | | contents of the spinal | | | | | | canal are notoptimally | | | | | | evaluated. T2 | | | | | | hyperintensity within | | | | | | the spinal cord at C4on | | | | | | axial T2 weighted images | | | | | | may be real or | | | | | | artifact. There is | | | | | | slightreversal of the | | | | | | cervical lordosis. The | | | | | | craniocervical | | | | | | articulationis | | | | | | preserved. Right | | | | | | laminae defects are more | | | | | | conspicuous on CT.There | | | | | | is faint T2 | | | | | | hyperintensity in the | | | | | | posterior paraspinal | | | | | | musclesadjacent to the | | | | | | C3 through C5 laminae | | | | | | and along the right side | | | | | | of thespinous processes | | | | | | at these levels, but | | | | | | little if any | | | | | | S1vrlfchdbzfxlps within | | | | | | the osseous defects of | | | | | | the | | | | | | fractures.Impression: | | | | | | Artifact from left C3 | | | | | | through C5 hardware | | | | | | limitsevaluation. | | | | | | Apparently corticated | | | | | | right laminar defects on | | | | | | theoutside CT | | | | | | associated with little | | | | | | if any T2 hyperintensity | | | | | | in theparaspinal soft | | | | | | tissues on this MR. some | | | | | | of this T2 | | | | | | hyperintensitymay | | | | | | represent | | | | | | susceptibility | | | | | | artifact from the | | | | | | contralateralhardware. | | | | | | Attending Radiologists: | | | | | | RYAN SELBY MDAuthor: | | | | | | RYAN SELBY MD I | | | | | | have personally viewed | | | | | | this procedure/exam, | | | | | | reviewed this report,and | | | | | | made changes to it | | | | | | where appropriate. | | | | | | Final/Electronically | | | | | | signed / RYAN | | | | | | BAL 01/23/2013 | | | | | | 18:56 PM | | | | + + + + + + + + | Specimen | + + | | + + + +---------+ + + | Performing | Address | City/State/Zipcode | Phone Number | | Organization | | | | + +---------+ + + | [facility] | | | | | RADIOLOGY | | | | + +---------+ + + CONFIRMATORY ABO/RH (01/23/2013 10:22 AM PDT) + + + + + + | Component | Value | Ref Range | Performed | Pathologist | | | | | At | Signature | + + + + + + | ABO Group | A | | [facility] | | | | | | LABORAT[facility] | | | | | | SERVICES, | | | | | | TRANSFUSION | | | | | | MEDICINE | | + + + + + + | Rh Type | Positive | | [facility] | | | | | | LABORATORY | | | | | | SERVICES, | | | | | | TRANSFUSION | | | | | | MEDICINE | | + + + + + + + + | Specimen | + + | Blood - Blood | + + + + + + + | Performing | Address | City/State/Zipcode | Phone Number | | Organization | | | | + + + + + | [facility] | [address] | [place] [address] | | | SERVICES, | [address] | | | | TRANSFUSION MEDICINE | | | | + + + + + X-RAY ELBOW 2 VIEWS RIGHT (01/23/2013 9:52 AM PDT) + + + + + + | Component | Value | Ref Range | Performed | Pathologist | | | | | At | Signature | + + + + + + | ELBOW 2 | ELBOW 2 VIEWS RIGHT, | | | | | VIEWS RIGHT | 01/23/13 09:52:00 | | | | | | HISTORY: Trauma | | | | | | COMPARISON: None | | | | | | FINDINGS: There is no | | | | | | fracture or focal | | | | | | obstructive process. The | | | | | | elbow joint | | | | | | ismaintained. No joint | | | | | | effusion or acute soft | | | | | | tissue abnormality | | | | | | ispresent. IMPRESSION: | | | | | | Normal elbow | | | | | | radiographs. Attending | | | | | | Radiologists: JONATHAN | | | | | | KATE GUZMANuthor: | | | | | | Neymar Beck M.D. I | | | | | | have personally viewed | | | | | | this procedure/exam, | | | | | | reviewed this report,and | | | | | | made changes to it | | | | | | where appropriate. | | | | | | Final/Electronically | | | | | | signed / JONATHAN GUZMAN | | | | | | 01/23/2013 10:30 AM | | | | | | | | | | | | | | | | + + + + + + + + | Specimen | + + | | + + + +---------+ + + | Performing | Address | City/State/Zipcode | Phone Number | | Organization | | | | + +---------+ + + | [facility] | | | | | RADIOLOGY | | | | + +---------+ + + X-RAY WRIST 3 VIEWS RIGHT (01/23/2013 9:52 AM PDT) + + + + + + | Component | Value | Ref Range | Performed | Pathologist | | | | | At | Signature | + + + + + + | WRIST 3 | WRIST 3 VIEWS RIGHT, | | | | | VIEWS RIGHT | 01/23/13 09:52:00 | | | | | | HISTORY: Trauma | | | | | | COMPARISON: None | | | | | | FINDINGS: There is mild | | | | | | diffuse osteopenia. | | | | | | There is no fracture or | | | | | | focalobstructive | | | | | | process. The joint | | | | | | spaces are maintained. | | | | | | No acute softtissue | | | | | | abnormality is present. | | | | | | IMPRESSION: No acute | | | | | | radiographic | | | | | | abnormality. Attending | | | | | | Radiologists: JONATHAN | | | | | | THOMAS MDAuthor: | | | | | | Neymar Beck M.D. I | | | | | | have personally viewed | | | | | | this procedure/exam, | | | | | | reviewed this report,and | | | | | | made changes to it | | | | | | where appropriate. | | | | | | Final/Electronically | | | | | | signed / JONATHAN GUZMAN | | | | | | 01/23/2013 10:30 AM | | | | | | | | | | + + + + + + + + | Specimen | + + | | + + + +---------+ + + | Performing | Address | City/State/Zipcode | Phone Number | | Organization | | | | + +---------+ + + | [facility] DEPARTMENT OF | | | | | RADIOLOGY | | | | + +---------+ + + X-RAY CHEST 1 VIEW (01/23/2013 9:52 AM PDT) + + + + + + | Component | Value | Ref Range | Performed | Pathologist | | | | | At | Signature | + + + + + + | CHEST, 1 | CHEST 1 VIEW, 01/23/13 | | | | | VIEW | 09:52:00 COMPARISON: | | | | | | None HISTORY: Trauma | | | | | | FINDINGS: The lungs are | | | | | | clear. There is no | | | | | | pneumothorax or pleural | | | | | | effusion.The cardiac and | | | | | | mediastinal contours | | | | | | are normal. There are no | | | | | | acuteosseous | | | | | | abnormalities. | | | | | | Postoperative changes in | | | | | | the cervical spineare | | | | | | incompletely evaluated. | | | | | | IMPRESSION: No acute | | | | | | traumatic injury. Clear | | | | | | lungs. Attending | | | | | | Radiologists: JONATHAN | | | | | | KATE GUZMANuthor: | | | | | | Neymar Beck M.D. I | | | | | | have personally viewed | | | | | | this procedure/exam, | | | | | | reviewed this report,and | | | | | | made changes to it | | | | | | where appropriate. | | | | | | Final/Electronically | | | | | | signed / JONATHAN GUZMAN | | | | | | 01/23/2013 10:29 AM | | | | + + + + + + + + | Specimen | + + | | + + + +---------+ + + | Performing | Address | City/State/Zipcode | Phone Number | | Organization | | | | + +---------+ + + | [facility] DEPARTMENT OF | | | | | RADIOLOGY | | | | + +---------+ + + X-RAY PELVIS 1 VIEW (01/23/2013 9:52 AM PDT) + + + + + + | Component | Value | Ref Range | Performed | Pathologist | | | | | At | Signature | + + + + + + | PELVIS 1 | PELVIS 1 VIEW, 01/23/13 | | | | | VIEW | 09:52:00 HISTORY: Trauma | | | | | | COMPARISON: None | | | | | | FINDINGS: There is no | | | | | | fracture or focal | | | | | | destructive process. The | | | | | | sacroiliacjoints, hip | | | | | | joints, and pubic | | | | | | symphysis are | | | | | | maintained. There is | | | | | | noacute soft tissue | | | | | | abnormality. IMPRESSION: | | | | | | Negative exam. | | | | | | Attending Radiologists: | | | | | | JONATHAN GUZMAN MDAuthor: | | | | | | Neymar Beck M.D. I | | | | | | have personally viewed | | | | | | this procedure/exam, | | | | | | reviewed this report,and | | | | | | made changes to it | | | | | | where appropriate. | | | | | | Final/Electronically | | | | | | prema / JONATHAN VAJBARRONJane | | | | | | 01/23/2013 10:29 AM | | | | | | | | | | | | | | | | | | | | | | + + + + + + + + | Specimen | + + | | + + + +---------+ + + | Performing | Address | City/State/Zipcode | Phone Number | | Organization | | | | + +---------+ + + | [facility] DEPARTMENT OF | | | | | RADIOLOGY | | | | + +---------+ + + CT SPINE THOR & LUMB WO CONTRAST (01/23/2013 9:12 AM PDT) + + + + + + | Component | Value | Ref Range | Performed | Pathologist | | | | | At | Signature | + + + + + + | CT SPINE | Indication: CT thoracic | | | | | THOR & LUMB | and lumbar spine without | | | | | WO | contrast Clinical | | | | | CONTRAST | Information: Trauma. | | | | | | Technique: Axial | | | | | | sections of the thoracic | | | | | | and lumbar spine | | | | | | wereobtained followed by | | | | | | sagittal and coronal | | | | | | 2-D reformats. | | | | | | Comparison: None. | | | | | | Findings:Thoracic | | | | | | spine:Spine alignment is | | | | | | maintained. There are | | | | | | no acute fractures | | | | | | ordislocations seen. | | | | | | No hematoma seen. Mild | | | | | | degenerative changes | | | | | | seen. Lumbar spine: | | | | | | Spinal alignment is | | | | | | maintained. No acute | | | | | | fractures ordislocations | | | | | | seen. No soft tissue | | | | | | hematoma seen. 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 | | | | | | Impression:No acute | | | | | | osseous abnormality in | | | | | | thoracic and lumbar | | | | | | spine. Attending | | | | | | Radiologists: DAPHNIE | | | | | | MARCI MDAuthor: | | | | | | ARNULFO BIRD, I have | | | | | | personally viewed this | | | | | | procedure/exam, reviewed | | | | | | this report,and made | | | | | | changes to it where | | | | | | appropriate. | | | | | | Final/Electronically | | | | | | signed / DAPHNIE | | | | | | MARCI 01/23/2013 | | | | | | 12:06 PM Pending final | | | | | | approval / ARNULFO | | | | | | PELON 01/23/2013 10:21 | | | | | | AM Preliminary / | | | | | | ARNULFO BIRD 01/23/2013 | | | | | | 9:33 AM | | | | + + + + + + + + | Specimen | + + | | + + + +---------+ + + | Performing | Address | City/State/Zipcode | Phone Number | | Organization | | | | + +---------+ + + | [facility] DEPARTMENT OF | | | | | RADIOLOGY | | | | + +---------+ + + ANTIBODY SCREEN (01/23/2013 8:39 AM PDT) + + + + + + | Component | Value | Ref Range | Performed | Pathologist | | | | | At | Signature | + + + + + + | Antibody | Negative | | [facility] | | | Screen | | | LABORATORY | | | | | | SERVICES, | | | | | | TRANSFUSION | | | | | | MEDICINE | | + + + + + + + + | Specimen | + + | Blood - Blood | + + + + + + + | Performing | Address | City/State/Zipcode | Phone Number | | Organization | | | | + + + + + | [facility] | [address] | [place] [address] | | | SERVICES, | [address] | | | | TRANSFUSION MEDICINE | | | | + + + + + ABO & RH TYPE (01/23/2013 8:39 AM PDT) + + + + + + | Component | Value | Ref Range | Performed | Pathologist | | | | | At | Signature | + + + + + + | ABO Group | A | | [facility] | | | | | | LABORATORY | | | | | | SERVICES, | | | | | | TRANSFUSION | | | | | | MEDICINE | | + + + + + + | Rh Type | Positive | | [facility] | | | | | | LABORATORY | | | | | | SERVICES, | | | | | | TRANSFUSION | | | | | | MEDICINE | | + + + + + + + + | Specimen | + + | Blood - Blood | + + + + + + + | Performing | Address | City/State/Zipcode | Phone Number | | Organization | | | | + + + + + | [facility] | [address] | [place] [address] | | | SERVICES, | [address] | | | | TRANSFUSION MEDICINE | | | | + + + + + INR (01/23/2013 8:39 AM PDT) + +-------+ + + + | Component | Value | Ref Range | Performed | Pathologist | | | | | At | Signature | + +-------+ + + + | INR | 1.05 | 0.90 - 1.20 INR | [facility] | | | | | | LABORATORY | | | | | | SERVICES, | | | | | | CORE | | + +-------+ + + + + + | Specimen | + + | Blood - Blood | + + + + + | Narrative | Performed At | + + + | INR Therapeutic ranges for full anticoagulation: INR for | [facility] | | Venous Thromboembolism (2.0 - 3.0) INR INR for | LABORATORY | | most patients with mech. valves (2.5 - 3.5) INR | [facility] | + + + + + + + + | Performing | Address | City/State/Zipcode | Phone Number | | Organization | | | | + + + + + | [facility] | [address] | [place] [address] | | | OSVALDO CHAPARRO | [address] | | | + + + + + ED -KULDEEP AMEZQUITA (01/23/2013 8:37 AM PDT) + + + + + + | Component | Value | Ref Range | Performed | Pathologist | | | | | At | Signature | + + + + + + | ED BG POC | 32 (H) | 23 - 29 mmol/L | [facility] - | | | TC02 | | | [place] | | | | | | [place], POINT | | | | | | OF CARE | | | | | | TESTS | | + + + + + + | ED BG POC | 7.30 (L) | 7.35 - 7.45 | [facility] - | | | PH | | | [place] | | | | | | K[place]ST[place], POINT | | | | | | OF CARE | | | | | | TESTS | | + + + + + + | ED BG POC | 61 (H) | 35 - 50 mmHg | [facility] - | | | PCO2 | | | [place] | | | | | | [place], POINT | | | | | | OF CARE | | | | | | TESTS | | + + + + + + | ED BG POC | 30 (H) | 22 - 28 mmol/L | [facility] - | | | HCO3 | | | [place] | | | | | | KRISTY, POINT | | | | | | OF CARE | | | | | | TESTS | | + + + + + + | ED BG POC | 3.0 | mmol/L | [facility] - | | | BE | | | [place] | | | | | | [place]Y POINT | | | | | | OF CARE | | | | | | TESTS | | + + + + + + | ED BG POC | 37 | 30 - 55 mmHg | [facility] - | | | PO2 | | | [place] | | | | | | KRISTY, POINT | | | | | | OF CARE | | | | | | TESTS | | + + + + + + | ED BG POC | 62 | % | [facility] - | | | SO2 | | | [place] | | | | | | KRIST[place], POINT | | | | | | OF CARE | | | | | | TESTS | | + + + + + + | ED LACTATE | 1.2 | 0.5 - 2.2 | [facility] - | | | POC | | mmol/L | [facility] | | | | | | [place]ICK [place] | | | | | | OF CARE | | | | | | TESTS | | + + + + + + | ED BG POC | 37.1 C | | [facility] - | | | TEMP | | | [place] | | | | | | [place] [place]AG[place] | | | | | | OF CARE | | | | | | TESTS | | + + + + + + | ISTAT | VENOUS | | [facility] - | | | SAMPLE TYPE | | | [place] | | | | | | [place] [place] | | | | | | OF CARE | | | | | | TESTS | | + + + + + + + + | Specimen | + + | | + + + + + + + | Performing | Address | City/State/Zipcode | Phone Number | | Organization | | | | + + + + + | [facility] | [address] | [place], [place] | | | [place] | [address] | [address] | | | TESTS | | | | + + + + + CBC (01/23/2013 8:19 AM PDT) + + + + + + | Component | Value | Ref Range | Performed | Pathologist | | | | | At | Signature | + + + + + + | WBC COUNT | 7.3 | 4.4 - 11.0 K/cu | [facility] | | | | | mm | LABORATORY | | | | | | SERVICES, | | | | | | CORE | | + + + + + + | RED CELL | 4.04 | 4.00 - 5.20 | [facility] | | | COUNT | | M/cu mm | LABORATORY | | | | | | SERVICES, | | | | | | CORE | | + + + + + + | HEMOGLOBIN | 10.0 (L) | 12.0 - 16.0 | [facility] | | | | | g/dL | LABORATORY | | | | | | SERVICES, | | | | | | CORE | | + + + + + + | HEMATOCRIT | 31.8 (L) | 36.0 - 46.0 % | [facility] | | | | | | LABORATORY | | | | | | SERVICES, | | | | | | CORE | | + + + + + + | MCV | 78.8 (L) | 80.0 - 96.0 fL | [facility] | | | | | | LABORATORY | | | | | | SERVICES, | | | | | | CORE | | + + + + + + | MCHC | 31.3 (L) | 33.4 - 35.5 | [facility] | | | | | g/dL | LABORATORY | | | | | | SERVICES, | | | | | | CORE | | + + + + + + | RDW | 21.3 (H) | 11.5 - 15.0 % | [facility] | | | | | | LABORATORY | | | | | | SERVICES, | | | | | | CORE | | + + + + + + | PLATELET | 180Comment: Final | 150 - 400 K/cu | [facility] | | | COUNT | platelet report. | mm | LABORATORY | | | | | | SERVICES, | | | | | | CORE | | + + + + + + + + | Specimen | + + | Blood - Blood | + + + + + + + | Performing | Address | City/State/Zipcode | Phone Number | | Organization | | | | + + + + + | [facility] | [address] | [place] [address] | | | SERVICES, CORE | [address] | | | + + + + + ETHANOL (ALCOHOL), BLOOD (01/23/2013 8:19 AM PDT) + +-------+ + + + | Component | Value | Ref Range | Performed | Pathologist | | | | | At | Signature | + +-------+ + + + | ETHANOL | <10 | <10 mg/dL | [facility] | | | (ALCOHOL) | | | LABORATORY | | | | | | SERVICES, | | | | | | CORE | | + +-------+ + + + + + | Specimen | + + | Blood - Blood | + + + + + + + | Performing | Address | City/State/Zipcode | Phone Number | | Organization | | | | + + + + + | [facility] | [address] | [place] [address] | | | SERVICES, CORE | [address] | | | + + + + + GLUCOSE, PLASMA (01/23/2013 8:19 AM PDT) + +-------+ + + + | Component | Value | Ref Range | Performed | Pathologist | | | | | At | Signature | + +-------+ + + + | GLUCOSE, | 84 | 60 - 99 mg/dL | [facility] | | | PLASMA | | | LABORATORY | | | (LAB) | | | SERVICES, | | | | | | CORE | | + +-------+ + + + + + | Specimen | + + | Blood - Blood | + + + + + + + | Performing | Address | City/State/Zipcode | Phone Number | | Organization | | | | + + + + + | [facility] | [address] | [place] [address] | | | KRYSTA, OSVALDO | [address] | | | + + + + + documented in this encounter Visit Diagnoses + + | Diagnosis | + + | Cervical spine fracture (HCC) - Primary Closed fracture of cervical vertebra, | | unspecified level without mention of spinal cord injury | + + | Acute pain | + + documented in this encounter Administered Medications + +--------+ +--------+------+------+ | Medication Order | MAR | Action | Dose | Rate | Site | | | Action | Date | | | | + +--------+ +--------+------+------+ | ALPRAZolam (aka XANAX) tablet | Given | 01/24/20 | 0.5 mg | | | | 0.5 mg 0.5 mg, oral, ONCE, 1 | | 13 3:32 | | | | | dose, Sat01/23/13 at 1600 | | PM PDT | | | | + +--------+ +--------+------+------+ +---+---+ | | | +---+---+ + +-------+ +-------+---+---+ | atenolol (aka TENORMIN) tablet | Given | 01/25/20 | 50 mg | | | | 50 mg 50 mg, oral, TWICE DAILY, | | 13 8:26 | | | | | First dose on Sat01/23/13 at | | AM PDT | | | | | 1400, Until Discontinued | | | | | | + +-------+ +-------+---+---+ +-------+ +-------+---+---+ | Given | 01/24/20 | 50 mg | | | | | 13 7:42 | | | | | | PM PDT | | | | +-------+ +-------+---+---+ | Given | 01/24/20 | 50 mg | | | | | 13 2:08 | | | | | | PM PDT | | | | +-------+ +-------+---+---+ +---+---+ | | | +---+---+ + +-------+ +--------+---+---+ | cholecalciferol (Vitamin D3) | Given | 01/25/20 | 1,000 | | | | (aka VITAMIN D-3) tablet 1,000 | | 13 8:26 | Units | | | | Units 1,000 Units, oral, DAILY, | | AM PDT | | | | | First dose on Sat01/23/13 at | | | | | | | 1400, Until Discontinued | | | | | | + +-------+ +--------+---+---+ +-------+ +--------+---+---+ | Given | 01/24/20 | 1,000 | | | | | 13 2:08 | Units | | | | | PM PDT | | | | +-------+ +--------+---+---+ +---+---+ | | | +---+---+ + +-------+ +------+---+---+ | diazepam (aka VALIUM) tablet 2 | Given | 01/25/20 | 2 mg | | | | mg 2 mg, oral, FOUR TIMES DAILY | | 13 8:27 | | | | | NEEDED, Starting 01/24/13 | | AM PDT | | | | | at 0758, Until 01/24/13 at | | | | | | | 1550, muscle spasms | | | | | | + +-------+ +------+---+---+ +---+---+ | | | +---+---+ + +-------+ +--------+---+---+ | DULoxetine (aka CYMBALTA) | Given | 01/25/20 | 120 mg | | | | capsule 120 mg 120 mg, oral, | | 13 8:26 | | | | | DAILY, First dose on Sat01/23/13 | | AM PDT | | | | | at 1400, Until Discontinued | | | | | | + +-------+ +--------+---+---+ +-------+ +--------+---+---+ | Given | 01/24/20 | 120 mg | | | | | 13 2:08 | | | | | | PM PDT | | | | +-------+ +--------+---+---+ +---+---+ | | | +---+---+ + +-------+ +---------+---+---+ | ferrous sulfate tablet 325 mg | Given | 01/25/20 | 325 mg | | | | total salt 325 mg total salt, | | 13 8:27 | total | | | | oral, DAILY, First dose on Sat | | AM PDT | salt | | | | 01/23/13 at 1400, Until | | | | | | | Discontinued | | | | | | + +-------+ +---------+---+---+ +-------+ +---+---+---+ | Given | 01/24/20 | | | | | | 13 2:08 | | | | | | PM PDT | | | | +-------+ +---+---+---+ +---+---+ | | | +---+---+ + +-------+ +---------+---+---+ | hydrochlorothiazide (aka | Given | 01/25/20 | 12.5 mg | | | | HYDRODIURIL) oral dose 12.5 mg | | 13 8:59 | | | | | 12.5 mg, oral, DAILY, First dose | | AM PDT | | | | | on Sat01/23/13 at 1400, Until | | | | | | | Discontinued | | | | | | + +-------+ +---------+---+---+ +-------+ +---------+---+---+ | Given | 01/24/20 | 12.5 mg | | | | | 13 3:07 | | | | | | PM PDT | | | | +-------+ +---------+---+---+ +---+---+ | | | +---+---+ + +-------+ +--------+---+---+ | ibuprofen (aka MOTRIN) tablet | Given | 01/24/20 | 200 mg | | | | 200-800 mg 200-800 mg, oral, | | 13 3:07 | | | | | EVERY 6 HOURS NEEDED, Starting | | PM PDT | | | | | 01/23/13 at 1448, Until Sat | | | | | | | 01/24/13 at 1550, mild pain, | | | | | | | moderate pain | | | | | | + +-------+ +--------+---+---+ +---+---+ | | | +---+---+ + +---------+ +------+--------+---+ | morphine injection 2-8 mg 2-8 | New Bag | 01/24/20 | 2 mg | mL/hr | | | mg, intravenous, EVERY 10 MINUTES | | 13 11:39 | | | | | NEEDED, 5 doses, Starting Fri | | AM PDT | | | | | 01/23/13 at 1133, Until Sat | | | | | | | 01/24/13 at 1550, moderate pain | | | | | | + +---------+ +------+--------+---+ + +---+ | | | + +---+ | morphine injection 1 dose, | | | Starting Sat01/23/13 at 1135, | | | Until Sat01/23/13 at 1139 | | + +---+ | | | + +---+ + +-------+ +------+---+---+ | oxyCODONE (immediate release) | Given | 01/25/20 | 5 mg | | | | (aka ROXICODONE) tablet 5-15 mg | | 13 8:26 | | | | | 5-15 mg, oral, EVERY 3 HOURS | | AM PDT | | | | | NEEDED, Starting Sat01/23/13 at | | | | | | | 1230, Until 01/24/13 at 1550, | | | | | | | severe pain | | | | | | + +-------+ +------+---+---+ +-------+ +-------+---+---+ | Given | 01/25/20 | 10 mg | | | | | 13 4:16 | | | | | | AM PDT | | | | +-------+ +-------+---+---+ | Given | 01/24/20 | 10 mg | | | | | 13 11:54 | | | | | | PM PDT | | | | +-------+ +-------+---+---+ +---+---+ | | | +---+---+ + +-------+ +--------+---+---+ | pregabalin (aka LYRICA) capsule | Given | 01/25/20 | 150 mg | | | | 150 mg 150 mg, oral, TWICE | | 13 8:27 | | | | | DAILY, First dose on Sat01/23/13 | | AM PDT | | | | | at 1400, Until Discontinued | | | | | | + +-------+ +--------+---+---+ +-------+ +--------+---+---+ | Given | 01/24/20 | 150 mg | | | | | 13 7:42 | | | | | | PM PDT | | | | +-------+ +--------+---+---+ | Given | 01/24/20 | 150 mg | | | | | 13 2:08 | | | | | | PM PDT | | | | +-------+ +--------+---+---+ +---+---+ | | | +---+---+ + +-------+ + +---+---+ | senna-docusate (aka SENROXANEOT S) | Given | 01/25/20 | 1 tablet | | | | 8.6-50 mg 1 Tab 1 tablet, oral, | | 13 8:27 | | | | | TWICE DAILY, First dose on Sat | | AM PDT | | | | | 01/23/13 at 1430, Until | | | | | | | Discontinued | | | | | | + +-------+ + +---+---+ +-------+ + +---+---+ | Given | 01/24/20 | 1 tablet | | | | | 13 7:42 | | | | | | PM PDT | | | | +-------+ + +---+---+ | Given | 01/24/20 | 1 tablet | | | | | 13 2:08 | | | | | | PM PDT | | | | +-------+ + +---+---+ +---+---+ | | | +---+---+ documented in this encounter
--- OUTSIDE RECORDS SUMMARY | ~2020-05-08 | XMS | Encounter Summary ---
Demographics + + + | Address | [address] | | | [place] [address] | + + + | Home Phone | | + + + | Preferred Language | Unknown | + + + | Marital Status | | + + + | Restoration Affiliation | 1013 | + + + | Race | Unknown | + + + | Ethnic Group | Unknown | + + + Author + + + | Author | [facility] | | | and Luis Enriqueana | + + + | Organization | [facility] | | | and Luis [...] Team Providers + +------+ + | Care Office Assistant Receptionist Name | Role | Phone | + [...] | +--------+ + + + + | 01/11/ | Hospital | [facility] | Erich Freire | Iron deficiency | | 2017 | Encounter | [facility] OP INFUSION | MD Jose Angel 76 | anemia, unspecified | | | | [address] | [place] | iron deficiency | | | | [place] [address] | [place] [address] | anemia type | | | | [address] | [phone] | | | | | [phone] | | | +--------+ + + + [...] this encounter Miscellaneous Notes Addendum Note - Duglas Naqvi RN - 01/14/2017 7:44 PM PSTEncounter addended by: Erin Naqvi RN on: 01/14/2017 19:44
Documentation filed: Charges VN documented in this encounter Plan of Treatment Not on filedocumented as of this encounter Visit Diagnoses + + | Diagnosis | + + | Iron deficiency anemia, unspecified iron deficiency anemia type | + + documented in this encounter Administered Medications + + + +--------+-------+------+ | Medication Order | MAR | Action | Dose | Rate | Site | | | Action | Date | | | | + + + +--------+-------+------+ | iron sucrose (VENOFER) 200 mg | Restarte | 01/12/20 | 200 mg | 110 | | | in sodium chloride 0.9% 100 mL | d | 17 12:57 | | mL/hr | | | IVPB 200 mg, Intravenous, | | PM PST | | | | | Administer over 60 Minutes, ONCE, | | | | | | | 01/11/17 at 1120, For 1 dose | | | | | | + + + +--------+-------+------+ +---------+ +--------+-------+---+ | New Bag | 01/12/20 | 200 mg | 110 | | | | 17 11:55 | | mL/hr | | | | AM PST | | | | +---------+ +--------+-------+---+ +---+---+ | | | +---+---+ documented in this encounter"
--- OUTSIDE RECORDS SUMMARY | ~2020-05-08 | XMS | Encounter Summary ---
Demographics + + + | Address | [address] | | | [place] [address] | + + + | Home Phone | | + + + | Preferred Language | Unknown | + + + | Marital Status | | + + + | Confucianism Affiliation | 1013 | + + + | Race | Unknown | + + + | Ethnic Group | Unknown | + + + Author + + + | Author | [facility] | | | and Luis Enriqueana | + + + | Organization | [facility] | | | and [...] Team Providers + +------+ + | Care Social Services Name | Role | Phone | + [...] | +--------+ + + + + | 01/15/ | Hospital | [facility] | Erich Freire | Iron deficiency | | 2017 | Encounter | MED CTR OP INFUSION | MD Jose Angel 76 | anemia, unspecified | | | | [address] | [place] | iron deficiency | | | | [place] [address] | [place] [address] | anemia type (Primary | | | | [address] | [phone] | Dx) | | | | [phone] | | | +--------+ + + + [...] documented as of this encounter Progress Notes Irene Marie RN - 01/15/2017 12:26 PM PSTPatient a no call/no show today, 2 numbers list ed on chart had full mailboxes, message left on pts Mothers phone. documented in this encounter Plan of Treatment Not on filedocumented as of this encounter Visit Diagnoses + + | Diagnosis | + + | Iron deficiency anemia, unspecified iron deficiency anemia type - Primary | + + documented in this encounter"
[~2020-05-08 21:13] MED LIST changes: +LOSARTAN POTASS50 MG PO
[2020-05-08] MEDS ORDERED: NORCO 5-325 TA1 EACH PO (21:28)
[2020-05-08] MEDS ORDERED: LOSARTAN POTAS100 MG PO (21:29)
[2020-05-08] MEDS ORDERED: ATENOLOL100 MG PO (21:29)
== END 2020-05-08 23:02 | disposition home or self-care (01) ==
LOC: ED 21:13
DX: S19.9XXA Unspecified injury of neck, initial encounter (principal); F32.9 Major depressive disorder, single episode, unspecified; F17.200 Nicotine dependence, unspecified, uncomplicated; Z88.8 Allergy status to other drugs, medicaments and biological substances; Z79.899 Other long term (current) drug therapy; W01.0XXA Fall on same level from slipping, tripping and stumbling without subsequent striking against object, initial encounter
CPT/HCPCS: 72125; 99283-25

== ENCOUNTER 2020-11-23 18:45 | Emergency (ER) | payer OTHER ==
[~2020-11-23] VITALS: Ht 180.3 cm; Wt 61.2 kg
[~2020-11-23 18:45] MED LIST changes: +ATENOLOL100 MG PO; +LOSARTAN POTAS100 MG PO; +NORCO 5-325 TA1 EACH PO
[2020-11-23] MEDS ORDERED: HYDROCHLOROTH12.5 M1 PO (18:58)
[2020-11-23] MEDS ORDERED: OXYCODONE HCL5 MG PO (18:59)
== END 2020-11-23 19:31 | disposition home or self-care (01) ==
LOC: ED 18:45
DX: S93.401A Sprain of unspecified ligament of right ankle, initial encounter (principal); X50.9XXA Other and unspecified overexertion or strenuous movements or postures, initial encounter; F17.200 Nicotine dependence, unspecified, uncomplicated; Z88.8 Allergy status to other drugs, medicaments and biological substances; Z88.1 Allergy status to other antibiotic agents; Z79.899 Other long term (current) drug therapy; Z79.891 Long term (current) use of opiate analgesic
CPT/HCPCS: 73610; 73630; 99283-25

== ENCOUNTER 2022-04-30 11:39 | Emergency (ER) | payer OTHER ==
[~2022-04-30] VITALS: Ht 175.3 cm; Wt 55.1 kg
[~2022-04-30 11:39] MED LIST changes: +HYDROCHLOROTH12.5 M1 PO; +OXYCODONE HCL5 MG PO
[2022-04-30] MEDS ORDERED: CLONIDINE HCL0.1 MG PO (11:55)
[2022-04-30] MEDS ORDERED: HYDROCODON-ACE1 EA10 PO (11:56)
[2022-04-30] MEDS ORDERED: LOSARTAN POTAS100 MG PO (12:30)
[2022-04-30] MEDS ORDERED: CLONIDINE HCL0.1 M1 PO (12:30)
[2022-04-30] MEDS ORDERED: ATENOLOL100 MG PO (12:30)
== END 2022-04-30 12:55 | disposition home or self-care (01) ==
LOC: ED 11:39
DX: R00.2 Palpitations (principal); Z76.0 Encounter for issue of repeat prescription; F17.200 Nicotine dependence, unspecified, uncomplicated; Z88.8 Allergy status to other drugs, medicaments and biological substances; Z79.899 Other long term (current) drug therapy

== ENCOUNTER 2022-05-14 13:21 | Emergency (ER) | payer OTHER ==
[~2022-05-14] VITALS: Ht 175.3 cm; Wt 58.3 kg
[~2022-05-14 13:21] MED LIST changes: +CLONIDINE HCL0.1 M1 PO; +CLONIDINE HCL0.1 MG PO; +HYDROCODON-ACE1 EA10 PO
--- OUTSIDE RECORDS SUMMARY | 2022-05-14 13:30 | XMS ---
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 CRITERIA MET - [facility] - 2 Visits in 30 Days CARE PROVIDERS There are no care providers on record at this time. [facility] has no Care Guidelines for this patient. E.D. VISIT COUNT (12 MO.) 2 [facility] TOTAL 2 NOTE: Visits indicate total known visits. ED/C VISIT TRACKING (12 MO.) 05/14/2022 13:22 [facility] [place] TYPE: Emergency COMPLAINT: - ABD PAIN, NAUSEA 04/30/2022 11:41 [facility] [place] TYPE: Emergency COMPLAINT: - RACING HEART, UP/DOWN B/P, WEAKNESS, FALLING DIAGNOSES: - Nicotine dependence, unspecified, uncomplicated - Other jail (current) drug therapy - Encounter for issue of repeat prescription - Allergy status to other drugs, medicaments and biological substances - Palpitations INPATIENT VISIT TRACKING (12 MO.) No inpatient visits to display in this time frame [id number]
== END 2022-05-14 18:09 | disposition short-term general hospital (02) ==
LOC: ED 13:21
DX: K63.1 Perforation of intestine (nontraumatic) (principal); A41.9 Sepsis, unspecified organism; F17.200 Nicotine dependence, unspecified, uncomplicated; Z88.8 Allergy status to other drugs, medicaments and biological substances; Z98.84 Bariatric surgery status
CPT/HCPCS: 36415; 51702; 74177; 80053; 81001; 83605; 83690; 84703; 85025; 87502; 99285-25; J1170; J2270; J2405; J2543; J7030; Q9967; U0003

== ENCOUNTER 2022-06-29 12:43 | Emergency (ER) | payer OTHER ==
[~2022-06-29] VITALS: Ht 175.3 cm; Wt 54.5 kg
--- OUTSIDE RECORDS SUMMARY | 2022-06-29 12:48 | XMS ---
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 CRITERIA MET - [facility] CARE PROVIDERS There are no care providers on record at this time. [facility] has no Care Guidelines for this patient. [facility] VISIT COUNT (12 MO.) 3 [facility] TOTAL 3 NOTE: Visits indicate total known visits. ED/C VISIT TRACKING (12 MO.) 06/29/2022 12:46 [facility] [place] TYPE: Emergency COMPLAINT: - HEAD INJURY 05/14/2022 13:22 [facility] [place] TYPE: Emergency COMPLAINT: - ABD PAIN, NAUSEA DIAGNOSES: - Nicotine dependence, unspecified, uncomplicated - Unspecified abdominal pain - Bariatric surgery status - Sepsis, unspecified organism - Allergy status to other drugs, medicaments and biological substances - Perforation of intestine (nontraumatic) 04/30/2022 11:41 [facility] [place] TYPE: Emergency COMPLAINT: - RACING HEART, UP/DOWN B/P, WEAKNESS, FALLING DIAGNOSES: - Other fpc (current) drug therapy - Palpitations - Encounter for issue of repeat prescription - Nicotine dependence, unspecified, uncomplicated - Allergy status to other drugs, medicaments and biological substances INPATIENT VISIT TRACKING (12 MO.) 05/14/2022 19:51 [facility] [place] TYPE: [facility] DIAGNOSES: - Unspecified severe protein-calorie malnutrition - Perforation of intestine (nontraumatic) - Perforation - unknown [email or web address]
[2022-06-29] MEDS ORDERED: HYDROCODON-ACE1 EA10 PO (14:31)
== END 2022-06-29 14:42 | disposition home or self-care (01) ==
LOC: ED 12:43
DX: S06.0X0A Concussion without loss of consciousness, initial encounter (principal); F17.200 Nicotine dependence, unspecified, uncomplicated; Z88.8 Allergy status to other drugs, medicaments and biological substances; W18.2XXA Fall in (into) shower or empty bathtub, initial encounter
CPT/HCPCS: 70450; 99283-25; A9270

== ENCOUNTER 2023-09-28 12:22 | Inpatient (IN) | payer OTHER ==
[~2023-09-28] VITALS: Ht 175.3 cm; Wt 52.9 kg
[2023-09-28] MEDS ORDERED: COZAAR50 MG PO (14:01)
[2023-09-28] MEDS ORDERED: OXYCODONE HCL5 MG PO (14:02)
[2023-09-28 14:44] LABS: BASOPHILS 0.4 % (0-2); EOSINOPHILS 0.4 % (0-6); HEMATOCRIT 33.5 % (35.0-50.0); HEMOGLOBIN 11.1 g/dL (12.0-18.0); LYMPHOCYTES 17.9 % (24-44); MCH 35.2 (27-36); MCHC 33.1 g/dl (30-36); MCV 106.5 fl (81-99); MONOCYTES 4.7 % (0-12); NEUTROPHILS 76.6 % (39-80); PLATELET COUNT 156 K/uL (140-440); RBC 3.14 M/ul (4.3-5.7); RDW 17.4 (10.5-15.0)
[2023-09-28 14:58] LABS: ALBUMIN 1.5 g/dL (3.4-5.0); ALBUMIN/GLOBULIN RATIO 0.35 (1.1-2.4); ANION GAP 16.8 (7-21); BILIRUBIN, TOTAL 4.3 ng/dL (0.2-1.0); BUN/CREATININE RATIO 11.3 (6.0-28.6); CALCIUM 7.8 mg/dL (8.5-10.1); CREATININE, SERUM 1.15 mg/dL (0.55-1.02); MAGNESIUM 1.5 mg/dL (1.8-2.4); POTASSIUM 2.8 mmol/L (3.5-5.1); PROTEIN, TOTAL 5.8 g/dL (6.4-8.2)
[2023-09-28 15:10] LABS: BILIRUBIN, URINE POSITIVE (negative); BLOOD/HGB, URINE SMALL (Negative); KETONE, URINE NEGATIVE (Negative); LEUK ESTERASE, URINE NEGATIVE (negative); NITRITE, URINE POSITIVE (negative); PH, URINE 5.5 (5-7)
[2023-09-28 15:17] LABS: RED BLOOD CELLS, URINE 0-1 /hpf (0-5)
[2023-09-28 15:18] LABS: BACTERIA, URINE 4+ /hpf (negative); CASTS, URINE NONE SEEN \\lpf; COLLECTION TYPE, URINE CLEAN CATCH; CRYSTALS, URINE NONE SEEN (0-1+); EPITHELIAL CELLS, URINE SQUAMOUS 1+ /lpf (0-1+); REFLEX CULTURE, URINE Yes (No)
[2023-09-28 17:59] LABS: BILIRUBIN, URINE POSITIVE (negative); BLOOD/HGB, URINE MODERATE (Negative); KETONE, URINE NEGATIVE (Negative); LEUK ESTERASE, URINE MODERATE (negative); NITRITE, URINE NEGATIVE (negative)
[2023-09-28 18:08] LABS: BACTERIA, URINE 3+ /hpf (negative); CRYSTALS, URINE AMORPHOUS PHOSPH 1+ (0-1+); EPITHELIAL CELLS, URINE SQUAMOUS 2+ /lpf (0-1+)
[2023-09-28 18:09] LABS: COLLECTION TYPE, URINE CLEAN CATCH; REFLEX CULTURE, URINE No (No)
[2023-09-28 20:00] VITALS: BP 98/79
[2023-09-28 20:21] VITALS: BP 95/73
[2023-09-28 21:00] VITALS: BP 90/66
[2023-09-28 22:00] VITALS: BP 84/65
[2023-09-28 23:00] VITALS: BP 83/60
[2023-09-29] VITALS (28 sets, daily range): BP systolic 74–106; BP diastolic 52–76
[2023-09-29 05:37] LABS: BASOPHILS 0.9 % (0-2); EOSINOPHILS 1.4 % (0-6); HEMATOCRIT 24.5 % (35.0-50.0); HEMOGLOBIN 8.2 g/dL (12.0-18.0); LYMPHOCYTES 31.2 % (24-44); MCH 35.6 (27-36); MCHC 33.2 g/dl (30-36); MCV 107.1 fl (81-99); NEUTROPHILS 58.5 % (39-80); PLATELET COUNT 96 K/uL (140-440); RBC 2.29 M/ul (4.3-5.7); RDW 17.2 (10.5-15.0)
[2023-09-29 06:05] LABS: ALBUMIN 1.3 g/dL (3.4-5.0); ALBUMIN/GLOBULIN RATIO 0.41 (1.1-2.4); ANION GAP 9.2 (7-21); BILIRUBIN, DIRECT 2.3 mg/dL (0.0-0.2); BILIRUBIN, INDIRECT 1.2 (0.1-0.7); BILIRUBIN, TOTAL 3.5 ng/dL (0.2-1.0); BUN/CREATININE RATIO 11.76 (6.0-28.6); CALCIUM 6.6 mg/dL (8.5-10.1); CREATININE, SERUM 1.02 mg/dL (0.55-1.02); MAGNESIUM 1.9 mg/dL (1.8-2.4); PHOSPHORUS, INORGANIC 2.9 mg/dL (2.5-4.9); POTASSIUM 3.2 mmol/L (3.5-5.1); PROTEIN, TOTAL 4.5 g/dL (6.4-8.2)
[2023-09-29 06:58] LABS: INR 1.13 (0.80-1.30)
[2023-09-29 10:58] LABS: BILIRUBIN, URINE POSITIVE (negative); BLOOD/HGB, URINE NEGATIVE (Negative); KETONE, URINE TRACE (Negative); LEUK ESTERASE, URINE TRACE (negative); NITRITE, URINE POSITIVE (negative)
[2023-09-29 11:08] LABS: CRYSTALS, URINE NONE SEEN (0-1+); EPITHELIAL CELLS, URINE SQUAMOUS 3+ /lpf (0-1+); RED BLOOD CELLS, URINE 0-1 /hpf (0-5)
[2023-09-29 11:09] LABS: BACTERIA, URINE 4+ /hpf (negative)
[2023-09-29 11:10] LABS: COLLECTION TYPE, URINE CLEAN CATCH; REFLEX CULTURE, URINE No (No)
[2023-09-29] MEDS ORDERED: NEURONTIN100 MG PO (15:53)
[2023-09-29] MEDS ORDERED: PEPCID20 MG PO (15:54)
[2023-09-29] MEDS ORDERED: TRAZODONE HCL50 MG PO (15:55)
[2023-09-29] MEDS ORDERED: CLONIDINE HCL0.1 MG PO (15:56)
[2023-09-29] MEDS ORDERED: PROTONIX40 MG PO (15:57)
[2023-09-29] MEDS ORDERED: ONDANSETRON HCL4 MG PO (15:58)
[2023-09-29] MEDS ORDERED: DIUREX WATER P1 EACH PO (16:03)
[2023-09-29] MEDS ORDERED: B-100 COMPLEX1 EAC1 PO (16:03)
[2023-09-29] MEDS ORDERED: VITAMIN C500 M1 PO (16:04)
[2023-09-29] MEDS ORDERED: SIMETHICONE80 MG PO (16:05)
[2023-09-29] MEDS ORDERED: TYLENOL EXTRA500 MG PO (16:06)
[2023-09-30] VITALS (24 sets, daily range): BP systolic 76–117; BP diastolic 48–91
[2023-09-30 05:35] LABS: BASOPHILS 1.1 % (0-2); HEMATOCRIT 23.6 % (35.0-50.0); HEMOGLOBIN 7.7 g/dL (12.0-18.0); LYMPHOCYTES 30.6 % (24-44); MCH 35.7 (27-36); MCHC 32.8 g/dl (30-36); MCV 108.9 fl (81-99); MONOCYTES 8.7 % (0-12); NEUTROPHILS 57.6 % (39-80); PLATELET COUNT 74 K/uL (140-440); RBC 2.17 M/ul (4.3-5.7); RDW 16.6 (10.5-15.0)
[2023-09-30 05:56] LABS: ALBUMIN 1.3 g/dL (3.4-5.0); ALBUMIN/GLOBULIN RATIO 0.45 (1.1-2.4); ANION GAP 11.2 (7-21); BILIRUBIN, TOTAL 2.4 ng/dL (0.2-1.0); CALCIUM 6.7 mg/dL (8.5-10.1); CREATININE, SERUM 0.75 mg/dL (0.55-1.02); POTASSIUM 3.2 mmol/L (3.5-5.1); PROTEIN, TOTAL 4.2 g/dL (6.4-8.2)
[2023-09-30 11:10] LABS: HEPATITIS A ANTIBODY, IGM Negative (Negative); HEPATITIS B CORE ANTIBODY, IGM Negative (Negative); HEPATITIS B SURFACE ANTIGEN Negative (Negative); HEPATITIS C AB CIA INTERP Negative (Negative); HEPATITIS C ANTIBODY CIA INDEX 0.04 IV (())
[2023-09-30 17:25] LABS: HEMATOCRIT 24.7 % (35.0-50.0); HEMOGLOBIN 8.2 g/dL (12.0-18.0); MCH 35.7 (27-36); MCHC 33.2 g/dl (30-36); MCV 107.6 fl (81-99); RBC 2.29 M/ul (4.3-5.7); RDW 16.7 (10.5-15.0)
[2023-10-01] VITALS (10 sets, daily range): BP systolic 98–107; BP diastolic 76–83
[2023-10-01 05:31] LABS: BASOPHILS 0.5 % (0-2); EOSINOPHILS 1.9 % (0-6); HEMATOCRIT 25.7 % (35.0-50.0); HEMOGLOBIN 8.5 g/dL (12.0-18.0); MCH 35.6 (27-36); MCV 107.8 fl (81-99); NEUTROPHILS 59.6 % (39-80); PLATELET COUNT 89 K/uL (140-440); RBC 2.38 M/ul (4.3-5.7)
[2023-10-01 05:41] LABS: ANION GAP 14.4 (7-21); BUN/CREATININE RATIO 5.19 (6.0-28.6); CALCIUM 7.2 mg/dL (8.5-10.1); CREATININE, SERUM 0.77 mg/dL (0.55-1.02); MAGNESIUM 1.4 mg/dL (1.8-2.4); POTASSIUM 3.4 mmol/L (3.5-5.1)
[2023-10-01 11:44] LABS: ALBUMIN 1.3 g/dL (3.4-5.0); ALBUMIN/GLOBULIN RATIO 0.42 (1.1-2.4); BILIRUBIN, TOTAL 1.7 ng/dL (0.2-1.0); BUN/CREATININE RATIO 5.06 (6.0-28.6); CALCIUM 7.3 mg/dL (8.5-10.1); CREATININE, SERUM 0.79 mg/dL (0.55-1.02); PROTEIN, TOTAL 4.4 g/dL (6.4-8.2)
[2023-10-02 21:09] LABS: ALK-PHOSPHATASE BONE CALC 64 U/L (0-55); ALK-PHOSPHATASE LIVER CALC 125 U/L (0-94); ALK-PHOSPHATASE OTHER CALC 0 U/L (()); ALKALINE PHOSPHATASE 189 U/L (40-120)
== END 2023-10-01 13:30 | disposition home or self-care (01) | DRG 897 ==
LOC: ED 12:22 → CCU 19:21
PROVIDERS: Emergency Medicine; Internal Medicine; ADMIT Family Medicine; ATTEND Family Medicine
DX: F10.139 Alcohol abuse with withdrawal, unspecified (principal); N39.0 Urinary tract infection, site not specified; G89.29 Other chronic pain; I95.9 Hypotension, unspecified; R19.7 Diarrhea, unspecified; D69.6 Thrombocytopenia, unspecified; E80.6 Other disorders of bilirubin metabolism; R74.8 Abnormal levels of other serum enzymes; E83.42 Hypomagnesemia; E87.6 Hypokalemia; F32.A Depression, unspecified; D50.9 Iron deficiency anemia, unspecified; K70.9 Alcoholic liver disease, unspecified; F17.210 Nicotine dependence, cigarettes, uncomplicated; Z90.89 Acquired absence of other organs; Z98.890 Other specified postprocedural states; Z98.51 Tubal ligation status; Z90.49 Acquired absence of other specified parts of digestive tract; Z90.710 Acquired absence of both cervix and uterus; Z88.8 Allergy status to other drugs, medicaments and biological substances; Z79.891 Long term (current) use of opiate analgesic; Z98.84 Bariatric surgery status
CPT/HCPCS: 36415; 51798; 76705; 80048; 80053; 80074; 80076; 81001; 83735; 84100; 85025; 85027; 85060; 85610; 87088; 97162; 97166; A9270; C9113; J0780; J1170; J1200; J2060; J2270; J2405; J3411; J3475; J3480; J3490; J7030; J7040; J7060

== ENCOUNTER 2024-07-07 17:15 | Inpatient (IN) | payer OTHER ==
[~2024-07-07] VITALS: Ht 175.3 cm; Wt 51.7 kg
[~2024-07-07 17:15] MED LIST changes: +B-100 COMPLEX1 EAC1 PO; +COZAAR50 MG PO; +DIUREX WATER P1 EACH PO; +NEURONTIN100 MG PO; +ONDANSETRON HCL4 MG PO; +PEPCID20 MG PO; +PROTONIX40 MG PO; +SIMETHICONE80 MG PO; +TRAZODONE HCL50 MG PO; +TYLENOL EXTRA500 MG PO; +VITAMIN C500 M1 PO
[2024-07-07] MEDS ORDERED: BELBUCA300 MCG BC (17:51)
[2024-07-07] MEDS ORDERED: DILAUDID2 MG PO (17:52)
[2024-07-07] MEDS ORDERED: OMEPRAZOLE40 MG PO (17:53)
[2024-07-07 18:30] LABS: EOSINOPHILS 2.8 % (0-6); HEMATOCRIT 43.6 % (35.0-50.0); HEMOGLOBIN 14.4 g/dL (12.0-18.0); LYMPHOCYTES 38.5 % (24-44); MCH 31.8 (27-36); MCHC 33.1 g/dl (30-36); MCV 96.1 fl (81-99); MONOCYTES 8.6 % (0-12); NEUTROPHILS 49.1 % (39-80); PLATELET COUNT 359 K/uL (140-440); RBC 4.54 M/ul (4.3-5.7); RDW 18.8 (10.5-15.0)
[2024-07-07 18:51] LABS: ALBUMIN 2.4 g/dL (3.4-5.0); ALBUMIN/GLOBULIN RATIO 0.52 (1.1-2.4); ANION GAP 16.5 (7-21); BILIRUBIN, TOTAL 0.8 ng/dL (0.2-1.0); BUN/CREATININE RATIO 5.26 (6.0-28.6); CALCIUM 8.6 mg/dL (8.5-10.1); CREATININE, SERUM 0.76 mg/dL (0.55-1.02); MAGNESIUM 1.8 mg/dL (1.8-2.4); POTASSIUM 2.5 mmol/L (3.5-5.1)
[2024-07-07] MEDS ORDERED: LACTATED RINGER'S 1,000 ML IV ONE (19:15)
[2024-07-07] MEDS ORDERED: HYDROmorphone HCL 1 MG/ML SYR IV PRN ×2 (19:15→23:30)
[2024-07-07] MEDS ORDERED: POTASSIUM CHLORIDE 10 MEQ/100 ML BAG IV SCH (19:30)
[2024-07-07 19:35] LABS: BILIRUBIN, URINE NEGATIVE (negative); BLOOD/HGB, URINE NEGATIVE (Negative); KETONE, URINE NEGATIVE (Negative); LEUK ESTERASE, URINE TRACE (negative); NITRITE, URINE POSITIVE (negative)
[2024-07-07 19:43] LABS: TSH, 3RD GENERATION 6.086 uIU/mL (0.358-3.740)
[2024-07-07 19:48] LABS: BACTERIA, URINE 3+ /hpf (negative); CASTS, URINE NONE SEEN \\lpf; COLLECTION TYPE, URINE CLEAN CATCH; CRYSTALS, URINE NONE SEEN (0-1+); EPITHELIAL CELLS, URINE SQUAMOUS 1+ /lpf (0-1+); RED BLOOD CELLS, URINE 0-1 /hpf (0-5); REFLEX CULTURE, URINE Yes (No)
[2024-07-07 19:51] LABS: AMPHETAMINES, URINE NEGATIVE (NEGATIVE); BARBITURATES, URINE NEGATIVE (NEGATIVE); BENZODIAZEPINE, URINE NEGATIVE (NEGATIVE); BUPRENORPHINE, URINE NEGATIVE (NEGATIVE); CANNABINOID, URINE NEGATIVE (NEGATIVE); COCAINE, URINE NEGATIVE (NEGATIVE); ECSTASY, URINE NEGATIVE (NEGATIVE); FENTANYL, URINE NEGATIVE (NEGATIVE); METHADONE, URINE NEGATIVE (NEGATIVE); OPIATES, URINE NEGATIVE (NEGATIVE); OXYCODONE, URINE NEGATIVE (NEGATIVE); PHENCYCLIDINE, URINE NEGATIVE (NEGATIVE)
[2024-07-07] MEDS ORDERED: methocarbamoL 500 MG TABLET PO ONE (21:30)
[2024-07-07] MEDS ORDERED: CEFTRIAXONE/SODIUM CHLORIDE 2 GM/100 ML PIGGYBACK IV ONE (21:45)
[2024-07-07] MEDS ORDERED: AZITHROMYCIN/DEXTROSE 500 MG/250 ML BAG IV ONE (22:00)
[2024-07-07] MEDS ORDERED: FAMOTIDINE 20 MG/ 2 ML VIAL IV ONE (22:00)
[2024-07-07] MEDS ORDERED: ondansetron HCL 4 MG/2 ML VIAL IV ONE (22:00)
[2024-07-07] MEDS ORDERED: PANTOPRAZOLE SODIUM 40 MG/10 ML VIAL IV ONE (22:00)
[2024-07-07] MEDS ORDERED: SODIUM CHLORIDE 0.9% 500 ML IV PRN ×2 (22:45)
[2024-07-07] MEDS ORDERED: LORazepam 1 MG TAB PO PRN (23:30)
[2024-07-07] MEDS ORDERED: KETOROLAC TROMETHAMINE 15 MG/ML VIAL IV ONE (23:30)
[2024-07-07] MEDS ORDERED: LORazepam 2 MG/ML VIAL IV/IM PRN (23:30)
[2024-07-07] MEDS ORDERED: THIAMINE HCL 100 MG,FOLIC ACID 1 MG,MULTIVITAMINS 10 ML in SODIUM CHLORIDE 0.9% 1,000 ML IV ONE (23:30)
[2024-07-07] MEDS ORDERED: ondansetron HCL 4 MG/2 ML VIAL IV PRN (23:30)
[2024-07-07 23:38] LABS: INR 0.93 (0.80-1.30); PROTIME 11.8 Sec (11.2-14.2)
[2024-07-07] MEDS ORDERED: FOLIC ACID 1 MG/0.2 ML ML ONE (23:42)
[2024-07-08] VITALS (20 sets, daily range): BP systolic 101–177; BP diastolic 73–111
--- NOTE | 2024-07-08 01:55 | NUR ---
SELENA ARRIVED TO THE UNIT VIA STRETCHER WITH FILI CASAREZ. SBAR HANDOFF AND REPORT RECEIVED. PATIENT SELENA IS NOTED TO BE ALERT AND ORIENTED X4, COOPERATIVE, FOLLOWS COMMANDS, GOOD HISTORIAN, PERRL, MOVES ALL EXTREMITIES, GENERALIZED WEAKNESS, PAIN 8/10 IN BACK AND NECK, CHRONIC PAIN WITH ACCEPTABLE PAIN LEVEL OF 6/10, CIWA 8, ENDOSES ANXIETY, AND INSOMNIA, ENDORSES INTERMITTENT DIFFICULTY SWALLOWING, CARDIAC- AFEBRILE, NO EDEMA, AFEBRILE, NSR RESP- RA, ABLE TO COUGH AND DEEP BREATH GI/- ACTIVE BOWEL TONES IN ALL 4 QUADRANTS, INCONTINENCE X 2, PURE WICK AND BRIEF PLACED, VOID IN BED LICONA, CONCENTRATED AND MALODOROUS URINE, SMEAR ON OLD BRIEF INT- SCRATCH ON LEFT HAND 20G IV LEFT AC PATENT AND INTACT PRN LORAZEPAM AND DILAUIDID GIVEN IV
[2024-07-08 05:33] LABS: BASOPHILS 0.6 % (0-2); EOSINOPHILS 3.2 % (0-6); HEMATOCRIT 32.3 % (35.0-50.0); HEMOGLOBIN 10.8 g/dL (12.0-18.0); LYMPHOCYTES 29.3 % (24-44); MCH 31.9 (27-36); MCHC 33.5 g/dl (30-36); MCV 95.3 fl (81-99); NEUTROPHILS 59.9 % (39-80); PLATELET COUNT 191 K/uL (140-440); RBC 3.39 M/ul (4.3-5.7); RDW 18.7 (10.5-15.0)
--- NOTE | 2024-07-08 05:36 | NUR ---
SELENA IS NOTED TO BE RESTING IN BED WITH EYES CLOSED. NO NEEDS IDENTIFIED AT THIS TIME. PURE WICK IN PLACE AND INTACT. SAFETY CHECK OF ROOM PERFORMED. LABS DRAWN
[2024-07-08 05:51] LABS: ALBUMIN 1.9 g/dL (3.4-5.0); ALBUMIN/GLOBULIN RATIO 0.56 (1.1-2.4); ANION GAP 11.1 (7-21); BILIRUBIN, TOTAL 1.2 ng/dL (0.2-1.0); BUN/CREATININE RATIO 7.35 (6.0-28.6); CALCIUM 7.5 mg/dL (8.5-10.1); CREATININE, SERUM 0.68 mg/dL (0.55-1.02); MAGNESIUM 1.2 mg/dL (1.8-2.4); PHOSPHORUS, INORGANIC 3.7 mg/dL (2.5-4.9); POTASSIUM 3.1 mmol/L (3.5-5.1); PROTEIN, TOTAL 5.3 g/dL (6.4-8.2)
[2024-07-08] MEDS ORDERED: PIPERACILLIN/TAZOBACTAM 3.375 GM in DEXTROSE 5% 100 ML IV SCH ×2 (06:00→14:00)
--- NOTE | 2024-07-08 06:15 | NUR ---
SELENA IS RESTING IN BED WITH EYES OPEN. SHE ENDORSES AN "OK NIGHT'S SLEEP". CIWA 4 FOR NAUSEA, MILD ANXIETY, AND SLIGHT TREMORS. PAIN 8/10 NECK/BACK. PRN ANALGESIC WILL BE GIVEN
[2024-07-08] MEDS ORDERED: PIPERACILLIN/TAZOBACTAM 3.375 GM VIAL ONE (06:28)
--- NOTE | 2024-07-08 07:09 | NUR ---
REPORT RECEIVED FROM INSURANCE RATER RN TALAT.
--- NOTE | 2024-07-08 07:45 | NUR ---
PATIENT RESTING IN BED, FLAT AFFECT. SHE REPORTS SHE IS DOING OK, SHE REPORTS PAIN 8/10, NECK/PAIN. SHE REPORTS FEELING VERY ANXIOUS. CIWA BY COLETTE [facility] PATIENT SCORED 8, COLETTE RN TO ADMINISTER ATIVAN PRN AND DILAUDID PRN, NO NEW CONCERNS BY THIS RN THIS AM ON ASSESSMENT. PT/OT/ST AND DIETARY CONSULTS ORDERED PER PROTOCOL FOR PLAN TO GO TO REHAB ON DISCHARGE. SHE REPORTS HAVING 20LB WEIGHT LOSS SINCE MARCH NOT ON PURPOSE.
[2024-07-08] MEDS ORDERED: THIAMINE HCL 100 MG TAB PO SCH (08:00)
[2024-07-08] MEDS ORDERED: MAGNESIUM SULFATE 2 GM/50 ML BAG IV SCH (08:30)
[2024-07-08] MEDS ORDERED: POTASSIUM CHLORIDE 40 MEQ,LIDOCAINE HCL 1% 40 MG in DEXTROSE 5% 250 ML IV ONE ×2 (08:30→18:45)
--- NOTE | 2024-07-08 08:35 | NUR ---
0800 MEDICATION ADMINISTERED PER THE EMAR. ATIVAN PO DOSE ADMINISTERED FOR CIWA SCORE OF 8 FOR NAUSEA, TREMORS, HEADACHE, AND ANXIETY. PRN DILUADID ADMINISTERED FOR PAIN RATED 8.5/10 IN THE NECK AND DOWN THE BACK. PATIENT TAKEN TO BEDSIDE COMMODE. PATIENT WITH UNMEASURED VOID AND UNMEASURED LIQUID BROWN STOOL. PATIENT TOLERATED WELL WITH 2 RN AT BEDSIDE TO HELP. FULL ASSESSMENT COMPLETE AND DOCUMENTED IN THE CHART. PATIENT IS ALERT AND ORIENTED TIMES FOUR. PATIENT IS RESPONSIVE WITH A FLAT AFFECT. PATIENT IS ON ROOM AIR AND LUNG SOUNDS ARE CLEAR BILATERALLY. CARDIAC WITH NORMAL S1 AND S2 BILATERALLY. PATIENT IS IN NORMAL SINUS RHYTHM AND HR IS 89. RADIAL AND PEDAL PULSES ARE STRONG BILATERALLY. CAPILLARY REFILL IN THE UPPPER AND LOWER EXTREMITIES IS LESS THAN 3 SECONDS BILATERALLY. BOWEL TONES ARE HYPERACTIVE IN ALL FOUR QUADRANTS. LAST BOWEL MOVEMENT WAS 07/07/24. PATIENT REFUSED BREAKFAST TRAY. PATIENT GIVEN APPLE SAUCE, CLEAR ENSURE, AND THE ORANGES OFF THE PATIENT TRAY PER PATIENT REQUEST. PATIENT WITH GENERALIZED WEAKNESS NOTED. SENSATION INTACT WITH NO COMPLAINTS OF NUMBNESS AND TINGLING. SKIN ASSESSMENT COMPLETE WITH FILI RAIN. SCRATCH/SCAB NOTED ON THE LEFT HAND WITH SCATTERED BRUISING. PATIENT IS NOW SITTING UPRIGHT IN BED AND EATING BREAKFAST. PATIENT STATED NO FURTHER NEEDS AT THIS TIME. CALL LIGHT AND PERSONAL BELONGINGS ARE WITHIN REACH.
--- NOTE | 2024-07-08 08:50 | NUR ---
RN ASKED PATIENT IF SHE WOULD LIKE THE PUREWICK BACK IN AT THIS TIME. PATIENT STATED SHE DOES WANT WANT IT RIGHT NOW. PATIENT STATED TO LET RN KNOW IF SHE CHANGES HER MIND. PATIENT EXPRESSED UNDERSTANDING. PATIENT STATED NO FURTHER NEEDS. CALL LIGHT AND PERSONAL BELONGINGS ARE WITHIN REACH.
--- NOTE | 2024-07-08 08:52 | NUR ---
PATIENT IS SITTING UPRIGHT IN BED AND TRYING TO EAT SOME BREAKFAST. PATIENT WITH NAUSEA AT THIS TIME. 0830 MAGNESIUM SULFATE IS INFUSING. PATIENT REQUESTING NAUSEA MEDICATION AT THIS TIME. PATIENT EDUCATED BEING DUE FOR LISA NEXT AROUND 1230. RN TO CALL MD FOR ANOTHER NAUSEA MEDICATION. PATIENT STATED NO FURTHER NEEDS AND EXPRESSED UNDERSTANDING. CALL LIGHT AND PERSONAL BELONGINGS ARE WITHIN REACH.
--- NOTE | 2024-07-08 09:36 | NUR ---
PATIENT ALERT AND ORIENTED, SITTING UP IN BED, EATING BREAKFAST. DEMOGRAPHICS VERIFIED. PATIENT HAS BEEN ATTEMPTING TO GET INTO INPATIENT ALCOHOL REHAB THROUGH THE PA. STATES SHE WOULD PREFER TO GO TO REHAB IN [place] SINCE THAT IS WHERE HER SPINAL SPECIALIST IS. STATES SHE LIVES IN HOUSE WITH STAIRS, BUT NO ISSUES. DME INCLUDED: CANE, WALKER, SCOOTER, MOBILITY EQUIMENTS, WHEELCHAIR. DENIES FINANCIAL HARDSHIP. STATES SHE NO LONGER DRIVES RECENTLY, FRIENDS AND FAMILY GENERALLY ASSIST WITH TRANSPORT NEEDED. DOES STATE SHE [facility] FOR [facility]HAB. PATIENT DENIES FURHTER NEEDS. DOES STATE SHE WOULD BE OPEN TO HAVING LON VISIT WITH HER.
--- NOTE | 2024-07-08 09:41 | NUR ---
PATIENT DRANK 200 ML OF CLEAR ENSURE. PATIENT ATE TWO ORANGE SLICES AND ABOUT HALF OF THE APPLE SAUCE. SECOND 2 GRAM MAGNESIUM SULFATE INFUSING AT THIS TIME. POTASSIUM CHLORIDE IS INFUSING AT THIS TIME. PATIENT EDUCATED ON HOW POTASSIUM CAN BURN THE IV INSERTION SITE AND TO LET US KNOW IF THAT HAPPENS. PATIENT EXPRESSED UNDERSTANDING. PATIENT BREAKFAST TRAY REMOVED AT THIS TIME. PATIENT STATED NO FURTHER NEEDS AT THIS TIME. CALL LIGHT AND PERSONAL BELONGINGS ARE WITHIN REACH.
--- NOTE | 2024-07-08 09:42 | NUR ---
CALLED AND SPOKE WITH GIGI AT [facility]. A PEER WILL COME TO FACILITY TO SPEAK WITH PATIENT.
--- NOTE | 2024-07-08 09:56 | NUR ---
CASE MANAGEMENT IS SPEAKING WITH THE PATIENT AT THIS TIME.
--- NOTE | 2024-07-08 09:59 | NUR ---
SPOKE WITH VIVIANE AT [facility] REGARDING INPATIENT TREATMENT. STATES THERE IS AN INPATIENT TREATMENT CENTER IN [facility], HOWEVER, THEY ARE SCHEDULING INPATIENTS IN AUGUST. [facility] INPATIENT TREATMENT IS ABLE TO ADMIT HER LIKELY IN THE MIDDLE OF . DISCUSSED WITH PATIENT. STATES SINCE SHE [facility] CALL [facility] AND A PHONE CALL SCHEDULED TO SPEAK WITH THE [facility] ABOUT [facility]PT REHAB, SHE WILL WAIT TO MAKE A DECISION UNTIL AFTER THAT PHONE CALL. INFORMED HER LON PEER WILL BE IN TO SEE HER TODAY. VERBALIZES UNDERSTANDING. ALLOWED TO REST AT THIS TIME.
[2024-07-08] MEDS ORDERED: PROCHLORPERAZINE EDISYLATE 10 MG/2 ML VIAL IV PRN (10:00)
[2024-07-08] MEDS ORDERED: LORazepam 2 MG/ML VIAL IV/IM PRN (10:00)
[2024-07-08] MEDS ORDERED: SODIUM CHLORIDE 0.9% 1,000 ML IV SCH (10:00)
[2024-07-08] MEDS ORDERED: LORazepam 1 MG TAB PO PRN (10:00)
[2024-07-08] MEDS ORDERED: ondansetron HCL 4 MG/2 ML VIAL IV PRN (10:00)
--- NOTE | 2024-07-08 10:03 | NUR ---
PATIENT IS LYING IN BED WITH EYES CLOSED AND RESPIRATIONS ARE EVEN AND UNLABORED. CALL LIGHT AND PERSONAL BELONGINGS ARE WITHIN REACH.
--- NOTE | 2024-07-08 10:06 | NUR ---
PT AND OT ARE WORKING WITH THE PATIENT AT THIS TIME.
--- NOTE | 2024-07-08 10:15 | NUR ---
PT NOT AVAILABLE FOR VISIT. PROVIDED PRAYER.
--- NOTE | 2024-07-08 10:50 | NUR ---
PATIENT IS SITTING UPRIGHT IN THE CHAIR WITH BLE ELEVATED AFTER WORKING WITH PT AND OT. PATIENT WITH PAIN RATED 9/10 IN HER NECK AND DOWN HER BACK. PRN DILAUDID ADMINISTERED AT THIS TIME. DOSE VERIFIED WITH FILI RAIN. PATIENT WITH NAUSEA AT THIS TIME. PRN COMPAZINE ADMINISTERED. IV SITE WITH NO REDNESS, SWELLING, OR BURNING. PATIENT EDUCATED AGAIN TO NOTIFY RN IF THE IV BEGINS BURNING FROM THE POTASSIUM CHLORIDE INFUSION. PATIENT EXPRESSED UNDERSTANDING. 0600 ZOSYN DOSE COMPLETE. CIWA SCORE OF 7 FOR HEADACHE, NAUSEA, ANXIETY, AND TREMORS. PATIENT STATED STILL NOT WANTING THE PUREWICK IN. PATIENT STATED NO FURTHER NEEDS AT THIS TIME. CALL LIGHT AND PERSONAL BELONGINGS ARE WITHIN REACH.
--- NOTE | 2024-07-08 11:06 | NUR ---
PATIENT IS SITTING UPRIGHT IN THE CHAIR WITH BILATERAL LOWER EXTREMITIES ELEVATED. MAGNESIUM SULFATE INFUSION COMPLETE. PATIENT POTASSIUM CHLORIDE INFUSION CONTINUE RUNNING. PATIENT STATED NO FURTHER NEEDS AT THIS TIME. CALL LIGHT AND PERSONAL BELONGINGS ARE WITHIN REACH.
--- NOTE | 2024-07-08 11:15 | NUR ---
PATIENT TRANSFERRED BACK TO BED WITH RN SBA. PATIENT TOLERATED WELL. PATIENT IS SPEAKING WITH DIETARY AT THIS TIME. PATIENT STATED NO FURTHER NEEDS. CALL LIGHT AND PERSONAL BELONGINGS ARE WITHIN REACH.
--- NOTE | 2024-07-08 11:35 | NUR ---
PATIENT IS LYING IN BED WITH EYES CLOSED AND RESPIRATIONS ARE EVEN AND UNLABORED. PATIENT WITH HOB ELEVATED. PATIENT WITH CALL LIGHT AND PERSONAL BELONGINGS ARE WITHIN REACH.
--- NOTE | 2024-07-08 11:51 | NUR ---
1200 ASSESSMENT COMPLETE AND DOCUMENTED IN THE CHART. PATIENT IS SITTING UPRIGHT IN BED WITH EYES CLOSED AND RESPIRATIONS ARE EVEN AND UNLABORED. PATIENT IS ALERT AND ORIENTED TIMES FOUR. PATIENT IS RESPONSIVE WITH A FLAT AFFECT. PATIENT WITH ROOM AIR AND LUNG SOUNDS ARE CLEAR BILATERALLY. CARDIAC WITH NORMAL S1 AND S2 ON AUSCULTATION. PATIENT IS ON THE CAD MANAGER AND IN NORMAL SINUS RHYTHM. HR IS 85 AT THIS TIME. RADIAL PULSES ARE STRONG BILATERALLY. BOWEL TONES ARE HYPERACTIVE IN ALL FOUR QUADRANTS. PATIENT IS ON A REGULAR DIET WITHE HER LAST BOWEL MOVEMENT EARLIER THIS MORNING. PATIENT WITH NO COMPLAINTS OF NAUSEA AT THIS TIME. IV SITE IN THE LEFT AC WITH POTASSIUM CHLORIDE INFUSION RUNNING. IV DRESSING IS LEAN, DRY, AND INTACT. PATIENT WITH NO COMPLAINTS OF PAIN OR BURNING AT THE INSERTION SITE. PATIENT WITH NO PUREWICK PER PATIENT REQUEST. PATIENT WITH GENERALIZED WEAKNESS NOTED. SENSATION INTACT WITH NUMBNESS AND TINGLING IN THE UPPER EXTREMITIES BILATERALLY. PATIENT STATES THE NUMBNESS AND TINGLING "COMES AND GOES" AT BASELINE. SKIN WITH A SCRATCH/SCAB NOTED ON THE LEFT HAND WITH SCATTERED BRUISING. PATIENT STATED NO FURTHER NEEDS AT THIS TIME. CALL LIGHT AND PERSONAL BELONGINGS ARE WITHIN REACH.
[2024-07-08] MEDS ORDERED: PHARMACY RENAL DOSE ADJUSTMENT 1 DOSE MISC PO SCH (12:00)
--- NOTE | 2024-07-08 12:08 | NUR ---
PATIENT IS LYING IN BED WITH EYES CLOSED AND RESPIRATIONS ARE EVEN AND UNLABORED. NS MAINTENANCE FLUIDS ARE INFUSING AT THIS TIME. POTASSIUM CHLORIDE INFUSION CONTINUES RUNNING. PATIENT WITH NO COMPLAINTS OF NAUSEA. PAIN AFTER THE DILAUDID PRN DOSE IS 7/10 IN THE NECK AND DOWN HER BACK. VITAL SIGNS TAKEN AND DOCUMENTED IN THE CHART. PATIENT LUNCH TRAY IS SET UP IN FRONT OF THE PATIENT. PATIENT STATED NO FURTHER NEEDS AT THIS TIME. CALL LIGHT AND PERSONAL BELONGINGS ARE WITHIN REACH.
--- NOTE | 2024-07-08 13:09 | NUR ---
PATIENT IS SITTING UPRIGHT IN BED WITH EYES CLOSED AND RESPIRATIONS ARE EVEN AND UNLABORED. PATIENT TO BED LICONA AND VOID 100 ML LIGHT YELLOW URINE. PATIENT WITH SMALL LIQUID BROWN BOWEL MOVEMENT. PATIENT DRANK 200 ML CLEAR ENSURE AND ATE 10% LUNCH TRAY. LUNCH TRAY REMOVED AT THIS TIME. PATIENT STATED NO FURTHER NEEDS AT THIS TIME. CALL LIGHT AND PERSONAL BELONGINGS ARE WITHIN REACH.
--- NOTE | 2024-07-08 13:12 | NUR ---
MD NOTIFIED OF PAIN MEDICATION ER ORDER FALLING OFF. MD ALSO NOTIFIED THAT PATIENT IS REQUESTING A NICOTINE PATCH. MD PUTTING ORDERS IN AT THIS TIME. CALL ENDED.
[2024-07-08] MEDS ORDERED: NICOTINE 14 MG/24 HR 1 EA TDSY TD SCH (13:13)
[2024-07-08] MEDS ORDERED: HYDROmorphone HCL 1 MG/ML SYR IV PRN (13:15)
--- NOTE | 2024-07-08 13:33 | NUR ---
PATIENT IS LYING IN BED WITH RT DOING AN EKG AT THIS TIME. PATIENT GIVEN 0.5 MG DILAUDID AT THIS TIME FOR PAIN RATED 9/10 IN THE NECK AND BACK. PRN ATIVAN 1 MG PO ADMINISTERED FOR CIWA OF 10 FOR ANXIETY, HEADACHE, TREMORS, AND NAUSEA. NICOTINE PLACED ON THE PATIENTS LEFT SHOULDER AT THIS TIME. PATIENT STATED NO FURTHER NEEDS AT THIS TIME. CALL LIGHT AND PERSONAL BELONGINGS ARE WITHIN REACH.
--- NOTE | 2024-07-08 14:04 | NUR ---
UR CLINICAL REVIEW: [facility] @ 2334 ORDER MATCHED REG NO AUTH REQUIRED, WILL SEND CLINICAL TO [facility]. DISCHARGE PLAN PENDING POSSIBLE PLACEMENT TO IN REHAB 07/10/24
--- NOTE | 2024-07-08 14:09 | NUR ---
PATIENT IS SPEAKING WITH LON AT THIS TIME. PATIENT STATED NO NEEDS AT THIS TIME. CALL LIGHT AND PERSONAL BELONGINGS ARE WITHIN REACH.
--- NOTE | 2024-07-08 14:21 | NUR ---
PATIENT IS SPEAKING WITH LON AT THIS TIME. PATIENT POTASSIUM CHLORIDE INFUSION COMPLETE. NS IS INFUSING AT 125 ML/HR. ZOSYN IS INFUSING AT 25 ML/HR. PATIENT STATED NO NEEDS AT THIS TIME. CALL LIGHT AND PERSONAL BELONGINGS ARE WITHIN REACH.
--- NOTE | 2024-07-08 14:48 | NUR ---
CIWA COMPLETTE AND PATIENT SCORED AN 8 FOR NAUSEA AND ANXIETY. PATIENT VOID LIGHT YELLOW URINE ON THE BED LICONA. MARINA CARE COMPLETE. PUREWICK IN PLACE. PATIENT IS REQUESTING SOMETHING FOR THE ANXIETY AT THIS TIME. CALL LIGHT AND PERSONAL BELONGINGS ARE WITHIN REACH.
--- NOTE | 2024-07-08 15:31 | NUR ---
FULL ASSESSMENT COMPLETE AND DOCUMENTED IN THE CHART. PATIENT IS ALERT AND ORIENTED TIMES FOUR. PATIENT WITH A FLAT AFFECT BUT IS RESPONSIVE. PATIENT IS ON ROOM AIR AND LUNG SOUNDS ARE CLEAR BILATERALLY. CARDIAC WITH NORMAL S1 AND S2 ON AUSCULTATION. PATIENT IS ON THE HEART MONITOR AND IN NORMAL SINUS RHYTHM. HR IS 87. RADIAL PULSES ARE STRONG BILATERALLY. BOWEL TONES ARE ACTIVE IN ALL FOUR QUADRANTS. PATIENT IS ON A REGULAR DIET AND THE LAST BOWEL MOVEMENT WAS 07/08/24. PATIENT GIVEN CHOCOLATE PUDDING PER PATIENT REQUEST. PATIENT WITH GENERALIZED WEAKNESS NOTED. SENSATION INTACT WITH NUBNESS AND TINGLING IN THE UPPER EXTREMITIES BILATERALLY THAT "COMES AND GOES". PATIENT ALSO STATES "IT IS NOT BAD EARLIER". SKIN WITH A SCRATCH/SCAB ON THE LEFT HAND, SCATTERED BRUISING, AND A NICOTINE PATCH ON THE LEFT SHOULDER. PATIENT WITH PAIN RATED 7/10 IN THE NECK AND BACK. PATIENT IS NOT REQUESTING PAIN MEDICATION AT THIS TIME. IV SITE IS CLEAN, DRY, AND INTACT. NS IS INFUSING AT 125 ML/HR. ZOSYN IS INFUSING AT 25 ML/HR. PATIENT STATED NO FURTHER NEEDS AT THIS TIME. CALL LIGHT AND PERSONAL BELONGINGS ARE WITHIN REACH.
--- NOTE | 2024-07-08 16:23 | NUR ---
PATIENT IS LYING IN BED AT THIS TIME WITH THE HOB ELEVATED. PATIENT IS AWAKE WITH RESPIRATIONS EVEN AND UNLABORED. NS IS INFUSING AT 125 ML/HR AND ZOSYN IS INFUSING AT 25 ML/HR. PATIENT STATED NO FURTHER NEEDS AT THIS TIME. PATIENT ATE ALMOST THE WHOLE CHOCOLATE PUDDING. CALL LIGHT AND PERSONAL BELONGINGS ARE WITHIN REACH.
--- NOTE | 2024-07-08 17:37 | NUR ---
PATIENT IS SITTING UPRIGHT IN BED WITH HER DINNER SET UP TO THE RIGHT SIDE OF HER. IV PUMP VOLUME INFUSED CLEARED. PATIENT VOID 100 ML OF CONCENTRATED AND DARK URINE IN THE PUREWICK. PATIENT STATED NO FURTHER NEEDS AT THIS TIME. CALL LIGHT AND PERSONAL BELONGINGS ARE WITHIN REACH.
--- NOTE | 2024-07-08 18:08 | NUR ---
LAB IS IN THE ROOM AT THIS TIME.
--- NOTE | 2024-07-08 18:24 | NUR ---
LAB DRAW COMPLETE. PATIENT TOLERATED WELL. VITAL SIGNS TAKEN AND DOCUMENTED IN THE CHART. PATIENT IS SITTING UPRIGHT IN BED WITH EYES CLOSED AND RESPIRATIONS ARE EVEN AND UNLABORED. NS IS INFUSING AT 125 ML/HR IN CALEB LAC. IV DRESSING IS CLEAN, DRY, AND INTACT. PATIENT GIVEN A FRESH CUP OF ICE WATER AND CLEAR ENSURE PER PATIENT REQUEST. PATIENT STATED NO FURTHER NEEDS AT THIS TIME. CALL LIGHT AND PERSONAL BELONGINGS ARE WITHIN REACH.
[2024-07-08 18:41] LABS: ANION GAP 11.9 (7-21); BUN/CREATININE RATIO 7.14 (6.0-28.6); CALCIUM 7.6 mg/dL (8.5-10.1); CREATININE, SERUM 0.7 mg/dL (0.55-1.02); MAGNESIUM 2.1 mg/dL (1.8-2.4); POTASSIUM 2.9 mmol/L (3.5-5.1)
[2024-07-08] MEDS ORDERED: POTASSIUM CHLORIDE 10 MEQ/100 ML BAG IV SCH (19:30)
--- NOTE | 2024-07-08 19:41 | NUR ---
SBAR REPORT RECEIVED FROM FILI BUSH. ALL EVENTS OF THE DAY WERE DISCUSSED AND PLAN OF CARE REVIEWED. SELENA IS NOTED TO BE IN BED RESTING WITH EYES CLOSED. SAFETY CHECK OF ROOM PERFORMED. NO NEEDS IDENTIFIED AT THIS TIME. VSS AND WDL PER MONITOR.
--- NOTE | 2024-07-08 20:08 | NUR ---
40MEQ K IV ORDERED. BAG 1:4 HUNG. 20G L AC PATENT AND INTACT
--- NOTE | 2024-07-08 21:12 | NUR ---
GURMEET ANDRES IN ROOM. REASESSMENT OF PRN ATIVAN AND DILAUIDID COMPLETED. PAIN 5/10 IN NECK AND BACK. SELENA STATES THAT SHE FEELS "LESS ANXIOUS" NOW WITH ATIVAN. NO OTHER NEEDS EMDORSED AT THIS TIME.
--- NOTE | 2024-07-08 21:19 | NUR ---
10MEQ POTASSIUM 2:4 COMMENCED
--- NOTE | 2024-07-08 21:40 | EKG ---
[facility] [address] [facility] [place] [address] Signed Normal sinus rhythm with sinus arrhythmia ST \T\ T wave abnormality, consider inferior ischemia ST \T\ T wave abnormality, consider anterolateral ischemia Prolonged QT Abnormal ECG When compared with ECG of 12-DEC-2016 04:45, Non-specific change in ST segment in Inferior leads T wave inversion now evident in Inferior leads T wave inversion now evident in Anterolateral leads QT has lengthened Confirmed by Vikki Brownlee MD () on 07/08/2024 9:39:51 PM Electronically Signed By: VIKKI BROWNLEE MD [id number]/08/[id number] PATIENT NAME: SELENA FARIAS Electrocardiogram DATE OF : 78 PHYSICIAN: VIKKI BROWNLEE MD REPORT #: [id number] REPORT IS CONFIDENTIAL AND NOT TO BE RELEASED WITHOUT AUTHORIZATION
--- NOTE | 2024-07-08 21:44 | EKG ---
[facility] [address] [facility] [place] [address] Signed Normal sinus rhythm Nonspecific T wave abnormality Prolonged QT Abnormal ECG When compared with ECG of 07-JUL-2024 19:16, Nonspecific T wave abnormality has replaced inverted T waves in Inferior leads T wave inversion less evident in Anterolateral leads Confirmed by Vikki Brownlee MD () on 07/08/2024 9:43:49 PM Electronically Signed By: VIKKI BROWNLEE MD 07/08/244 PATIENT NAME: SELENA FARIAS Electrocardiogram DATE OF : [birth year] PHYSICIAN: VIKKI BROWNLEE MD REPORT #: [id number] REPORT IS CONFIDENTIAL AND NOT TO BE RELEASED WITHOUT AUTHORIZATION
--- NOTE | 2024-07-08 22:40 | NUR ---
3:4 POTASSIUM COMMENCED. BED BATH GIVEN, PUREWICK REPLACED, GOWN REPLACED, DENTURES (UPPER AND LOWER) CLEANED AND IN DENTURE CUP. CLEAR ENSURE GIVEN, H20 REFILLED. SELENA ENDORSES CHRONIC PAIN 5/10
--- NOTE | 2024-07-08 23:52 | NUR ---
SELENA REQUESTED BEED BROTH THIS HOUR DURING ROUNDS. 240CC OF BROTH ENJOYED. PAIN REASESSMENT COMPLETED. PAIN 6/10. PATIENT'S PAIN GOAL MET
[2024-07-09] VITALS (18 sets, daily range): BP systolic 98–134; BP diastolic 72–96
--- NOTE | 2024-07-09 00:40 | NUR ---
SELENA IS RESTING IN BED WITH EYES OPEN WATCHING TELEVISION. SHE ENDORSES ACCEPTABLE COMFORT THIS HOUR, PUREWICK REMAINS PATENT AND INTACT. VSS WDL PER MONITOR. SR- ST 90-120 WITH ACTIVITY.
--- NOTE | 2024-07-09 03:37 | NUR ---
SELENA CALLED AND REPORTED PAIN 7/10 IN NECK. PRN DILAUIDID IV ADMINISTERED. WILL REASSESS AT APPROPRIATE TIME. NO OTHER NEEDS ENDORSED AT THIS TIME
[2024-07-09 05:21] LABS: BASOPHILS 0.2 % (0-2); EOSINOPHILS 5.4 % (0-6); HEMATOCRIT 28.7 % (35.0-50.0); HEMOGLOBIN 9.6 g/dL (12.0-18.0); LYMPHOCYTES 13.4 % (24-44); MCH 32.1 (27-36); MCHC 33.3 g/dl (30-36); MCV 96.4 fl (81-99); MONOCYTES 7.3 % (0-12); NEUTROPHILS 73.7 % (39-80); PLATELET COUNT 142 K/uL (140-440); RBC 2.98 M/ul (4.3-5.7); RDW 18.5 (10.5-15.0)
--- NOTE | 2024-07-09 05:21 | NUR ---
SELENA REQUESTED BEEF BROTH AND ENDORSED RESTROOM NEEDS. BERKLEY CAGLE IN ROOM. 1 P ASSIST TO COMMODE
[2024-07-09 05:36] LABS: ALBUMIN 1.6 g/dL (3.4-5.0); ALBUMIN/GLOBULIN RATIO 0.5 (1.1-2.4); ANION GAP 8.7 (7-21); BILIRUBIN, TOTAL 0.8 ng/dL (0.2-1.0); BUN/CREATININE RATIO 7.35 (6.0-28.6); CALCIUM 7.7 mg/dL (8.5-10.1); CREATININE, SERUM 0.68 mg/dL (0.55-1.02); MAGNESIUM 1.7 mg/dL (1.8-2.4); PHOSPHORUS, INORGANIC 3.9 mg/dL (2.5-4.9); POTASSIUM 3.7 mmol/L (3.5-5.1); PROTEIN, TOTAL 4.8 g/dL (6.4-8.2)
--- NOTE | 2024-07-09 05:51 | NUR ---
PT CALLED TO USE THE RESTROOM. PT GOT UP STAND BY ASSIST. PT GOT A NEW PUREWICK AND DEPEND ON. WHILE I WAS IN THERE I GOT PT NEW KENDALL. PT IS HOOKED UP TO MONITOR AND HAS CALL LIGHT.
--- NOTE | 2024-07-09 06:17 | NUR ---
EKG COMPLETED BY ALEXANDR PERDOMO. SELENA IS RESTING IN BED WATCHING TELEVISION. 0600 ABX COMMENCED
--- NOTE | 2024-07-09 07:01 | NUR ---
PRN HYDROMORPHONE 1MG FOR PAIN 7/10 IN NECK AND BACK
--- NOTE | 2024-07-09 07:41 | NUR ---
SBAR REPORT RECEIVED FROM FILI GILLILAND. PATIENT AWAKE WHILE LYING IN BED. DENTURES GIVEN. IVF INFUSING WITHOUT DIFFICULTY. DENIES OTHER NEEDS AT THIS TIME. CALL LIGHT IN REACH.
--- NOTE | 2024-07-09 08:24 | NUR ---
PATIENT ASSISTED WITH BREAKFAST TRAY SET UP. REVIEWED HOME MEDICATIONS. SPEACH THERAPY IN ROOM TO SEE PATIENT.
--- NOTE | 2024-07-09 08:41 | NUR ---
PATIENT MEDICATED PER EMAR FOR CIWA OF 9. POOR APPETITE THIS AM. POC REVIEWED WITH PATIENT WELL MEDICATION EDUCATION. PATIENT DENIES CONCERNS. PT IN ROOM TO WORK WITH PATIENT.
--- NOTE | 2024-07-09 08:56 | NUR ---
PATIENT UP TO BSC WITH PT. SINUS TACH ON TELEMETRY WITH HR IN THE LOW 150S. PATIENT BACK TO BED, REPORTS SHE IS TOO TIRED. BACK TO SINUS RHYTHM 90-105 AT REST AFTER ACTIVITY. PARTIAL LINEN CHANGE COMPLETED. CALL LIGHT IN REACH.
[2024-07-09] MEDS ORDERED: ENOXAPARIN SODIUM 40 MG/0.4 ML SYR SUB-Q SCH (09:00)
--- NOTE | 2024-07-09 09:31 | NUR ---
PATIENT GIVEN INCENTIVE SPIROMETER. EDUCATION PROVIDED AND PATIENT DEMONSTRATED PROPER USE. ACHIEVED 1250ML.
[2024-07-09] MEDS ORDERED: POTASSIUM CHLORIDE 40 MEQ,LIDOCAINE HCL 1% 40 MG in DEXTROSE 5% 250 ML IV ONE (10:00)
[2024-07-09] MEDS ORDERED: MAGNESIUM SULFATE 2 GM/50 ML BAG IV ONE (10:00)
[2024-07-09] MEDS ORDERED: atenoloL 100 MG TAB PO SCH (10:18)
[2024-07-09] MEDS ORDERED: buprenorphine HCL 2 MG TAB.SUBL SL SCH (10:22)
[2024-07-09] MEDS ORDERED: TRAZODONE HCL 50 MG TAB PO PRN (10:30)
[2024-07-09] MEDS ORDERED: MELATONIN10 MG PO (10:42)
[2024-07-09] MEDS ORDERED: HYDROXYZINE HCL25 MG PO (10:47)
--- NOTE | 2024-07-09 11:19 | NUR ---
OCCUPATIONAL THERAPY IN ROOM WORKING WITH PATIENT. HR 86-98 SINUS RHYTHM ON TELEMETRY.
[2024-07-09] MEDS ORDERED: CALCIUM 500 MG1 EAC6 PO (11:20)
--- NOTE | 2024-07-09 11:24 | NUR ---
PATIENT UP TO BSC, OCCUPATIONAL THERAPY ASSISTING WITH BATHING. TELEMETRY ELECTRODES REPLACED.
--- NOTE | 2024-07-09 12:17 | NUR ---
PATIENT SITTING UP IN BED WHILE EATING LUNCH. MEDICATED WITH DILAUDID FOR PAIN PER EMAR. RATES PAIN 7/10 IN HER NECK AND BACK WELL C/O HEADACHE. ASSESSMENT INCLUDING CIWA CHARTED. PATIENT REPORTS SHE FEELS TIRED AND THAT SHE DIDNT SLEEP WELL LAST NIGHT. DENIES OTHER NEEDS, QUESTIONS OR CONCERNS AT THIS TIME. CALL LIGHT IN REACH. FRESH WATER GIVEN,PUREWICK IN PLACE AND DRAINING TO SUCTION.
[2024-07-09] MEDS ORDERED: hydrOXYzine pamoate 25 MG CAP PO PRN (12:45)
--- NOTE | 2024-07-09 12:47 | NUR ---
REVIEWED URINE CULTURE RESULTS WITH DR. BROWNLEE. PATIENT ATE 50% OF HER LUNCH, SOME APPETITE IMPROVEMENT. REPORTS PAIN HAS IMPROVED AFTER PAIN MEDICATION. RESTING IN BED AT THIS TIME. ENCOURAGED CONTINUED IS USE. CALL LIGHT IN REACH. DENIES NEEDS OR CONCERNS AT THIS TIME. IVF INFUSING WITHOUT DIFFICULTY.
[2024-07-09] MEDS ORDERED: LIDOCAINE HCL 4% 1 EACH PATCH TD SCH (12:48)
[2024-07-09] MEDS ORDERED: PANTOPRAZOLE SODIUM 40 MG TABEC PO SCH (12:49)
[2024-07-09] MEDS ORDERED: SIMETHICONE 125 MG TABLET CHEWABLE PO PRN (13:00)
[2024-07-09] MEDS ORDERED: HYDROmorphone HCL 2 MG TAB PO PRN (13:00)
--- NOTE | 2024-07-09 13:22 | NUR ---
LIDOCAIN PATCH PLACED ON RIGHT SCAPULA/SHOULDER. ATTEMPED TO RE-ASSESS PAIN, PATIENT STATES, "I AM TOO TIRED TO EVEN THINK ABOUT IT." REQUESTS TO REST AT THIS TIME. CALL LIGHT IN REACH.
--- NOTE | 2024-07-09 13:49 | NUR ---
VISITED DURING SPIRITUAL CARE ROUNDS. PT APPEARS TO BE SLEEPING. DID NOT DISTURB. PROVIDED PRAYER.
--- NOTE | 2024-07-09 14:43 | NUR ---
PATIENT INCONTIENT OF SMALL AMOUNT OF STOOL AND URINE. UP TO BSC THEN CHAIR AFTER CLEANED. TO RADIOLODY FOR MODIFIED BARIUM SWALLOW. TOLERATED WELL. BACK TO ROOM AND UP TO CHAIR. ERIC BROWN PLACED. [facility] IN ROOM TO SEE PATIENT. CALL LIGHT IN REACH. PATIENT REPORTS SHE WOULD LIKE TO REST THIS AFTERNOON, REVIEWD POC FOR THE REMAINDER OF THE AFTERNOON WITH PATIENT. DENIES QUESTIONS OR CONCERNS.
[2024-07-09] MEDS ORDERED: methocarbamoL 500 MG TABLET PO SCH (15:00)
--- NOTE | 2024-07-09 15:23 | NUR ---
PATIENT MEDICATED PER EMAR FOR CIWA OF 12. C/O CONTINUED HEADACHE. REVIEWED WITH DR. BROWNLEE, ORDER RECEIVED FOR TORADOL 15MG IV Q8 PRN FOR PAIN. PHARMACIST IN ROOM WITH PATIENT.
[2024-07-09] MEDS ORDERED: KETOROLAC TROMETHAMINE 15 MG/ML VIAL IV PRN (15:30)
[2024-07-09] MEDS ORDERED: VOLTAREN ARTHRI20 GM TOP (15:59)
[2024-07-09] MEDS ORDERED: VITAMIN B-12500 MCG PO (15:59)
[2024-07-09] MEDS ORDERED: FOLIC ACID1 MG PO (16:04)
[2024-07-09] MEDS ORDERED: CYMBALTA60 MG PO (16:04)
[2024-07-09] MEDS ORDERED: LIDOCAINE35.44 GM TOP (16:05)
[2024-07-09] MEDS ORDERED: MULTI VITAMIN1 EACH PO (16:06)
[2024-07-09] MEDS ORDERED: LIDODERM1 EACH TOP (16:06)
[2024-07-09] MEDS ORDERED: LYRICA100 MG PO (16:07)
[2024-07-09] MEDS ORDERED: NARCAN4 MG NAS (16:07)
--- NOTE | 2024-07-09 16:08 | NUR ---
MED REC COMPLETE
--- NOTE | 2024-07-09 17:10 | NUR ---
PATIENT CONTINUES TO REST IN CHAIR. WAKES EASILY TO NAME. SUPPER PROVIDED. DENIES NEEDS AT THIS TIME. CALL LIGHT IN REACH.
[2024-07-09] MEDS ORDERED: THIAMINE HCL 100 MG TAB PO SCH (17:15)
[2024-07-09] MEDS ORDERED: FOLIC ACID 1 MG TAB PO SCH (17:16)
--- NOTE | 2024-07-09 18:07 | NUR ---
PATIENT BACK TO BED. SWITCHED TO TELEMETRY #6. PATIENT PREVIOUSLY UPDATED ON CHANGE TO MEDICAL STATUS AND NEW ROOM NUMBER PROVIDED. TOLERATED SUPPER, REPORTS INCREASE IN APPETITE. ACTIVITY INTOLERANCE IMPROVING. NO TACHYCARDIA NOTED WITH ACTIVITY. PATIENT REPOSITIONED HERSELF IN BED INDEPENDENTLY. DENIES QUESTIONS OR CONCERNS AT THIS TIME. CALL LIGHT IN REACH.
[2024-07-09] MEDS ORDERED: LIDOCAINE PATCH REMOVAL 1 EA TD SCH (21:00)
[2024-07-09] MEDS ORDERED: PREGABALIN 100 MG CAP PO SCH (21:00)
[2024-07-09] MEDS ORDERED: MELATONIN 3 MG TAB PO SCH (21:00)
--- NOTE | 2024-07-09 21:26 | NUR ---
PATIENT MEDICATED FOR PAIN 8/10 IN BACK/NECK/HEAD. PATIENT IS AAOX4. VS STABLE. LUNG SOUNDS CLEAR. BOWEL SOUNDS ACTIVE. DENIED NAUSEA. TOLERATES PO MEDS AND SIPS OF WATER. PATIENT REPORTS HER APPETITE IMPROVING AND REQUEST A SNACK WHICH WAS PROVIDED. ASSISTED PATIENT TO POSITION FOR COMFORT. NO OTHER NEEDS AT THIS TIME. CALL LIGHT IN REACH.
--- NOTE | 2024-07-09 21:42 | EKG ---
[facility] [address] [facility] [place] [address] Signed Normal sinus rhythm Nonspecific T wave abnormality Abnormal ECG When compared with ECG of 08-JUL-2024 13:14, QT has shortened Confirmed by Vikki Brownlee MD () on 07/09/2024 9:42:28 PM Electronically Signed By: VIKKI BROWNLEE MD 07/09/242141 PATIENT NAME: SELENA FARIAS Electrocardiogram DATE OF : 78 PHYSICIAN: VIKKI BROWNLEE MD REPORT #: [id number] REPORT IS CONFIDENTIAL AND NOT TO BE RELEASED WITHOUT AUTHORIZATION
--- NOTE | 2024-07-09 22:35 | NUR ---
REPORT RECIEVED FROM CCU RN. THIS RN ASSUMING CARE OF PATIENT. VS OBTAINED AND RECORDED. SCHEDULED IV ABX INFUSING PER ORDER. IV FLUSHES WNL. PATIENT DENIES NEEDS AT THIS TIME. PATIENT REQUESTING PUREWICK. PUREWICK PLACED AFTER MARINA CARE PROVIDED. SNACKS AND FRESH WATER PROVIDED. PATIENT HAS NO FURTHER NEEDS. CALL LIGHT IN REACH.
[2024-07-10] VITALS (7 sets, daily range): BP systolic 104–140; BP diastolic 71–94
--- NOTE | 2024-07-10 00:09 | NUR ---
PATIENT RESTING IN BED WITH EYES CLOSED. RESPIRATIONS EVEN AND UNLABORED. CALL [facility] IN REACH.
--- NOTE | 2024-07-10 00:48 | NUR ---
PATIENT REQUESTING SLEEP AND PAIN MEDICATION. MEDICATION ADMISNITERED. VS AND I&Os OBTAINED AND RECORDED. PATIENT HAS NO FURTHER NEEDS AT THIS TIME. CALL [facility] IN REACH.
--- NOTE | 2024-07-10 03:00 | NUR ---
IV ALARMING. PT STATED SHE BENT HER ARM. REQUESTED AND RECEIVED APPLEJUICE OVER ICE. NO OTHER NEEDS AT THIS TIME.
--- NOTE | 2024-07-10 05:17 | NUR ---
PATIENT RESTING IN BED ON BACK WITH EYES CLOSED. RESPIRATIONS EVEN AND UNLABORED. CALL [facility] IN REACH.
[2024-07-10 05:30] LABS: BASOPHILS 0.4 % (0-2); EOSINOPHILS 5.7 % (0-6); HEMATOCRIT 28.3 % (35.0-50.0); HEMOGLOBIN 9.5 g/dL (12.0-18.0); LYMPHOCYTES 15.5 % (24-44); MCH 32.3 (27-36); MCHC 33.4 g/dl (30-36); MCV 96.6 fl (81-99); NEUTROPHILS 71.4 % (39-80); PLATELET COUNT 140 K/uL (140-440); RBC 2.93 M/ul (4.3-5.7); RDW 18.2 (10.5-15.0)
[2024-07-10 05:46] LABS: ALBUMIN 1.4 g/dL (3.4-5.0); ALBUMIN/GLOBULIN RATIO 0.44 (1.1-2.4); ANION GAP 10.6 (7-21); BILIRUBIN, TOTAL 0.4 ng/dL (0.2-1.0); BUN/CREATININE RATIO 4.83 (6.0-28.6); CALCIUM 7.8 mg/dL (8.5-10.1); CREATININE, SERUM 0.62 mg/dL (0.55-1.02); MAGNESIUM 1.7 mg/dL (1.8-2.4); PHOSPHORUS, INORGANIC 4.4 mg/dL (2.5-4.9); POTASSIUM 3.6 mmol/L (3.5-5.1); PROTEIN, TOTAL 4.6 g/dL (6.4-8.2)
--- NOTE | 2024-07-10 05:56 | NUR ---
MITTEN SEWER OBTAINED VITALS AND I&O. PT STATES NO NEEDS AT THIS TIME. CALL [facility] WITHIN REACH.
--- NOTE | 2024-07-10 06:08 | NUR ---
SCHEDULED IV ABX INFUSING PER ORDER. PATIENT HAS NO FURTHER NEEDS. CALL [facility] IN REACH.
--- NOTE | 2024-07-10 07:25 | NUR ---
UR CONCURRENT REVIEW: [facility]- MEETS GL DAY 2, WILL UPDATE CM STAFF WPS ANAMARIA LORA INPT 07/08/24 @ 0958 ORDER MATCHES REG NO AUTH REQUIRED PER [facility]INES AWAITING DISCHARGE TO [facility] 07/13/24
--- NOTE | 2024-07-10 07:25 | NUR ---
Patient resting in bed, eyes closed, respirations even and non labored. Patient has no distress at this time. Personal supplies and call light within reach.
--- NOTE | 2024-07-10 08:53 | NUR ---
Admin dilaudid 1mg IV at this time for reported of 9/10 back pain.
[2024-07-10] MEDS ORDERED: DULOXETINE HCL 60 MG CAP PO SCH (09:00)
--- NOTE | 2024-07-10 09:57 | NUR ---
PATIENT STATES SHE IS TRYING TO EAT. SHE ATE 90% OF HER CHEESE OMELET AND DRANK 100% OF REGULAR AJ THIS MORNING. SHE FINDS THAT IF SHE SITS UP IT IS HARDER TO SWALLOW. MBS RESULTS INDICATE MILD-MOD OROPHARYNGEAL DYSPHAGIA BUT TO CONTINUE WITH REGULAR DIET, THIN LIQUIDS AND TAKE SMALL BITES. PATIENT LIKES ENSURE CLEAR. ENSUR CLEAR ADDED TO ALL MEAL TRAYS. I TOLD HER IF SHE WANTS ONE IN BETWEEN MEALS SHE CAN ASK THE NURSE OR [employer] ASSOCIATE FOR ONE SINCE THEY [place]. SHE HAS A FAMILY MEMBER WHO CAN HELP COOK AT HOME. SHE DOES HAVE ENSURE CLEAR AT HOME WELL. I SUGGESTED SHE HAVE QUICK AND EASY ITEMS LIKE INSTANT MAC & CHEESE, PUDDING, OR SOUP THAT SHE CAN MICROWAVE. SHE HAS SOME OF THESE THINGS ALREADY INCLUDING FRUIT CUPS AND JELLO CUPS. NO OTHER CONCERNS AT THIS TIME. RD WILL CONTINUE TO MONITOR AND FOLLOW UP IN 5 DAYS.
--- NOTE | 2024-07-10 10:29 | NUR ---
IN IV PUMP ALARMING, RESOLVED. PT REPORTING ALLEN 05/20. 1033 PRN PAIN MEDICATION ADMINISTERED, SEE MAR. SHADES DRAWN IN ROOM PER PT REQUEST. PT ASKING FOR COMB. PT DENIES ANY OTHER NEEDS AT THIS TIME. CALL LIGHT IN REACH. PHYSICAL THERAPY ASKING TO WORK WITH PT. PHYSICAL THERPAY HANDED COMB FOR PT. PHYSICAL THERAPY GOING INTO PTs ROOM.
--- NOTE | 2024-07-10 11:11 | NUR ---
PT NOT AVAILABLE FOR VISIT. PROVIDED PRAYER.
--- NOTE | 2024-07-10 11:40 | NUR ---
PATIENT STATES SHE IS AGREEABLE TO [facility] INPATIENT TREATMENT. CALLED [facility]ON ANTONIO, AND INFORMED HER PATIENT IS AGREEABLE TO [place]. ALSO INFORMED HER PATIENT MAY NOT CONTINUE TO MEET INPATIENT THROUGH THE WEEKEND. [facility] TO HAVE A [facility] VISIT HER AT HOME TO ASSIST WITH STAYING SOBER, NO RESIDENTIAL FACILITY IN TOWN FOR PATIENT TO STAY UNTIL SHE IS ACCEPTED INTO INPATIENT ALCOHOL REHAB. PATIENT NOTIFIED, SHE FELT SHE WOULD'VE BEEN ABLE TO GO TO [place] NOW. 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 CONCERNED ABOUT GOING HOME. VERIFIED PHONE NUMBER AND INFORMED HER [facility] WOULD LIKELY BE CALLING HER AND INFORMED HER [place] SAID THE [facility] OR PEER VISITS ARE AN OPTION FOR HER. VERBALIZES UNDERSTANDING.
--- NOTE | 2024-07-10 12:30 | NUR ---
ADMIN ATIVAN 1MG IV AND DILAUDID 2MG PO AT THIS TIME FOR REPORTS OF ANXIETY/HEADACHE 06/20.
[2024-07-10] MEDS ORDERED: MAGNESIUM SULFATE 2 GM/50 ML BAG IV ONE (13:30)
[2024-07-10] MEDS ORDERED: IBUPROFEN 600 MG TAB PO PRN (15:00)
--- NOTE | 2024-07-10 15:16 | NUR ---
IN TO ANSWER CALL LIGHT. IV PUMP ALARMING, RESOLVED. IV MAGNESIUM COMPLETE. IV CONTINUES TO INFUSE ABX. PT DENIES ANY OTHER NEEDS AT THIS TIME. CALL LIGHT IN REACH.
--- NOTE | 2024-07-10 15:56 | NUR ---
Patient in bed resting, pt alert/oriented x4. Patient reports she has an ongoing headache. Pain medication in use-ice pack provided to patient.
--- NOTE | 2024-07-10 16:31 | NUR ---
PATIENT REPORTS AN ONGOING HEADACHE/BACK AND NECK PAIN. ADMIN IBUPROFEN 600MG PO AND ATIVAN 1MG IV FOR CIWA SCORE OF 9. FRESH WATER PROVIDED. IV ABX CONTINUE TO INFUSE, PATENT IV SITE. PATIENT HAS NO CURRENT NEEDS, PERSONAL SUPPLIES AND CALL LIGHT WITHIN REACH.
--- NOTE | 2024-07-10 19:14 | NUR ---
SHIFT REPORT RECEIVED FROM ROHAN RN, PT RESTING WIHTOUT REQUESTS
--- NOTE | 2024-07-10 20:33 | NUR ---
PT ASLEEP, HOB ELEVATED, RESP EVEN AND REG, WITHOUT DISTRESS.
--- NOTE | 2024-07-10 22:00 | NUR ---
PT RESTING QUIETLY WITHOUT REQUESTS AT THIS TIME.
--- NOTE | 2024-07-10 23:58 | NUR ---
PT APPEARS TO SLEEP, RESP EVEN AND REG, WITHOUT DISTRESS.
--- NOTE | 2024-07-11 00:26 | NUR ---
HELP PT USE BSC AND THEN BACK INTO BED. PT ASKED FOR A JELLO AND IT WAS GIVEN TO HER.
--- NOTE | 2024-07-11 01:10 | NUR ---
PT APPEARS TO SLEEP, RESP EVEN AND REGULAR, IV A/B INFUSING WELL.
[2024-07-11 01:23] VITALS: BP 114/75
--- NOTE | 2024-07-11 01:23 | NUR ---
VS COMPLETED PER SUNITA GOODEN, REVIEWED AND STABLE FOR PATIENT.
--- NOTE | 2024-07-11 02:48 | NUR ---
iv pump alarming, iv abx complete. iv site wnl, saline locked. pt then up sba with fww and in bathroom, instructed to use call light when complete. chocolate pudding x2 provided per pt request.
[2024-07-11 02:54] VITALS: BP 114/75
--- NOTE | 2024-07-11 02:56 | NUR ---
CABLE ARMORER HELP PT BACK TO BED FROM BATHROOM. GAVE PT NEW ICE PACK. PT REQUESTED PAIN PILLS AND SOMETHING FOR ANXIETY FROM THE RN.
--- NOTE | 2024-07-11 03:03 | NUR ---
PT REQUESTING ANXIETY MED, CIWA 7, MEDICATED WITH VISTARIL 25MG PO PER ORDER, PT C/O HEADACHE, DISCUSSED TOO EARLY FOR DILAUDID AND MOTRIN, PLAN TO UPDATE .
--- NOTE | 2024-07-11 03:10 | NUR ---
TC TO DR EM TO REPORT HEADACHE 06/20, UPDATED TOO EARLY FOR BOTH MOTRIN AND DILAUDID, ORDERS RECEIVED FOR TYLENOL 1OOOMG PO NOW.
[2024-07-11] MEDS ORDERED: ACETAMINOPHEN 500 MG TAB PO ONE (03:15)
--- NOTE | 2024-07-11 03:19 | NUR ---
PT MEDICATED WITH TYLENOL 1000MG PO PER ORDER, PT REQUESTED SNACK, GIVEN STRING CHEESE AND CRACKERS PER REQUEST, TOLERATING SNACK WITHOUT CHOKING AT THIS TIME, PT RESTING.
[2024-07-11 03:32] VITALS: BP 114/75
--- NOTE | 2024-07-11 03:44 | NUR ---
PT ASLEEP, RESP EVEN AND REGULAR
--- NOTE | 2024-07-11 04:45 | NUR ---
PT APPEARS TO SLEEP, RESP EVEN AND REG.
[2024-07-11 05:17] VITALS: BP 115/78
--- NOTE | 2024-07-11 05:40 | NUR ---
PT CONTINUES TO SLEEP, RESP EVEN AND REG.
--- NOTE | 2024-07-11 06:30 | NUR ---
PT AWAKEN BRIEFLY TO START IV A/B, PT ALERT BUT DROWSY, BACK TO SLEEP WHEN LEFT UNDISTURBED, RESP EVEN REG, IV SITE PATENT.
--- NOTE | 2024-07-11 07:20 | NUR ---
recieved report from nurse at 0720. pt in room sleeping in bed with even and unlabored breathing noted. no concerns call light within reach
--- NOTE | 2024-07-11 08:02 | NUR ---
BOARD HAS BEEN UPDATED AND CALL LIGHT HAS BEEN PLACED WITHIN REACH
[2024-07-11 09:16] VITALS: BP 145/97
[2024-07-11] MEDS ORDERED: AMOX TR-K CLV1 EAC1 PO (10:34)
--- NOTE | 2024-07-11 10:42 | NUR ---
pt state sthat her anxiety is up due to the knowledge that she will be sent home. pt scored a 6 on the ciwa scale. no concerns at this time call light within reach
--- NOTE | 2024-07-11 10:46 | NUR ---
pt worried about niot being able to be sent to a rehab facility. pt given [facility] card
[2024-07-11] MEDS ORDERED: CHLORDIAZEPOXID10 MG PO (11:03)
[2024-07-11 11:27] VITALS: BP 123/86
--- NOTE | 2024-07-12 09:01 | EKG ---
[facility] [address] [facility] [place] [address] Signed Normal sinus rhythm Prolonged QT Abnormal ECG When compared with ECG of 09-JUL-2024 06:03, Vent. rate has decreased BY 35 BPM Nonspecific T wave abnormality no longer evident in Inferior leads Confirmed by Lizette Em MD ([id number]) on 07/12/2024 9:01:38 AM Electronically Signed By: LIZETTE EM 07/12/24 0901 PATIENT NAME: SELENA FARIAS Electrocardiogram DATE OF : 78 PHYSICIAN: LIZETTE EM REPORT #: [id number] REPORT IS CONFIDENTIAL AND NOT TO BE RELEASED WITHOUT AUTHORIZATION
== END 2024-07-11 12:26 | disposition home or self-care (01) | DRG 177 ==
LOC: ED 17:15 → CCU 23:34 → MS 07-09 21:02
PROVIDERS: Emergency Medicine; Internal Medicine; ADMIT Family Medicine; ATTEND Family Medicine
DX: J69.0 Pneumonitis due to inhalation of food and vomit (principal); E43 Unspecified severe protein-calorie malnutrition; N39.0 Urinary tract infection, site not specified; F10.139 Alcohol abuse with withdrawal, unspecified; E87.0 Hyperosmolality and hypernatremia; Z68.1 Body mass index [BMI] 19.9 or less, adult; K52.9 Noninfective gastroenteritis and colitis, unspecified; F32.A Depression, unspecified; G62.9 Polyneuropathy, unspecified; D50.9 Iron deficiency anemia, unspecified; F17.210 Nicotine dependence, cigarettes, uncomplicated; E83.42 Hypomagnesemia; R94.31 Abnormal electrocardiogram [ECG] [EKG]; R74.8 Abnormal levels of other serum enzymes; K74.60 Unspecified cirrhosis of liver; F10.129 Alcohol abuse with intoxication, unspecified; G89.29 Other chronic pain; E87.6 Hypokalemia; F43.10 Post-traumatic stress disorder, unspecified; Z90.89 Acquired absence of other organs; Z98.890 Other specified postprocedural states; Z90.710 Acquired absence of both cervix and uterus; Z98.51 Tubal ligation status; Z88.8 Allergy status to other drugs, medicaments and biological substances; Z79.899 Other long term (current) drug therapy; Z98.84 Bariatric surgery status; Z90.49 Acquired absence of other specified parts of digestive tract
CPT/HCPCS: 36415; 71260; 74177; 74230; 80048; 80053; 80307; 81001; 82140; 82553; 83735; 84100; 84443; 84484; 85025; 85610; 87088; 87186; 92526; 92610; 92611; 93005; 93010; 97110; 97162; 97166; 97530; 97535; A9270; A9270-GY; G0480; J0456; J0696; J0780; J1170; J1650; J1885; J2060; J2405; J2470; J2543; J3411; J3475; J3480; J3490; J7030; J7040; J7060; J7121; Q0177; Q9967